=== PATIENT | female | born 1935 | race Caucasian/White ===

== ENCOUNTER 2016-10-09 22:07 | Observation (INO) | payer MEDICARE, MEDICAID ==
[~2016-10-09] VITALS: Ht 167.6 cm; Wt 50.0 kg
[~2016-10-09 22:07] MED LIST: AMLO2.5T33 PO; FERR160T22 PO; FURO20TA6 PO; GLIM4TAB31 PO; INSU10VI2; METF-186 PO; POTA10TA83 PO
--- OUTSIDE RECORDS SUMMARY | 2016-10-09 22:11 | XMS REPORT ---
Author Author Erin Marie Organization eClinicalWorks Address Unknown Phone Unavailable Care Team Providers Care Central Service Tech Name Role Phone Erin Marie CP Unavailable Allergies No Known Allergies Problems Problem Type Condition ICD-9 Code Onset Dates Condition Status Problem Diabetes 250.00 Active Problem Anemia 285.9 Active Problem HTN (hypertension) 401.9 Active Problem Renal insufficiency 593.9 Active Medications No Known Medications Results No Known Results Summary Purpose eClinicalWorks Submission
--- OUTSIDE RECORDS SUMMARY | 2016-10-09 22:11 | XMS REPORT ---
Author Author Erin Marie [facility] eClinicalWorks Address Unknown Phone Unavailable Care Team Providers Care Treasury Agent Name Role Phone Erin Marie Unavailable Allergies No Known Allergies Problems Problem Type Condition Code Onset Dates Condition Status Problem Anemia 285.9 Active Problem Renal insufficiency 593.9 Active Problem Diabetes 250.00 Active Medications No Known Medications Results No Known Results Summary Purpose eClinicalWorks Submission
--- OUTSIDE RECORDS SUMMARY | 2016-10-09 22:11 | XMS REPORT ---
Author Author Erin Marie Organization [employer] Address Unknown Phone Unavailable Care Team Providers Care Tile Sprayer Name Role Phone Erin Marie CP Unavailable Allergies No Known Allergies Problems Problem Type Condition Code Onset Dates Condition Status Problem Essential (primary) hypertension I10 Active Problem Pancytopenia D61.818 Active Problem Type 2 diabetes mellitus without complications E11.9 Active Problem CKD (chronic kidney disease) stage 3, GFR 30-59 ml/min N18.3 Active Medications Medication Code System Code Instructions Start Date End Date Status Dosage one touch Delica Lancets NDC 0 33 E11.9 Testing 4 times daily for IDDM E11.9 poorly controlled September 19, 2015 not defined Results No Known Results Summary Purpose eClinicalWorks Submission
--- OUTSIDE RECORDS SUMMARY | 2016-10-09 22:11 | XMS REPORT ---
Author Author Erin Marie Organization Formerly [facility] Spec Address [address] [place] [address] Care Team Providers Care Vamp Stitcher Name Role Phone Erin Marie Unavailable [phone] PROBLEMS Type Condition ICD9-CM Code [id number] Code Onset Dates Condition Status SNOMED Code Problem Type 2 diabetes mellitus without complications E11.9 Active 59228845 Problem Essential (primary) hypertension I10 Active 56270244 Problem Pancytopenia D61.818 Active 479159896 Problem CKD (chronic kidney disease) stage 3, GFR 30-59 ml/min N18.3 Active 728181030 ALLERGIES Unknown Allergies SOCIAL HISTORY No smoking Hx information available PLAN OF CARE VITAL SIGNS MEDICATIONS Unknown Medications RESULTS No Results PROCEDURES No Known procedures IMMUNIZATIONS No Known Immunizations
--- OUTSIDE RECORDS SUMMARY | 2016-10-09 22:11 | XMS REPORT ---
Author Author Erin Marie Organization eClinicalWorks Address Unknown Phone Unavailable Care Team Providers Care Traffic Routing Engineer Name Role Phone Erin Marie CP Unavailable Allergies No Known Allergies Problems Problem Type Condition Code Onset Dates Condition Status Problem Essential (primary) hypertension I10 Active Problem Pancytopenia D61.818 Active Problem Type 2 diabetes mellitus without complications E11.9 Active Problem Renal insufficiency 593.9 Active Problem HTN (hypertension) 401.9 Active Problem Anemia 285.9 Active Medications Medication Code System Code Instructions Start Date End Date Status Dosage One Touch Ultra Blue Test Strips NDC 0 strip testing 4 times daily for IDDM E11.9, poorly controlled May 23, 2015 not defined Results No Known Results Summary Purpose eClinicalWorks Submission
--- OUTSIDE RECORDS SUMMARY | 2016-10-09 22:11 | XMS REPORT ---
Author Author Erin Marie [facility] eClinicalWorks Address Unknown Phone Unavailable Care Team Providers Care Missile Tracking Technician Name Role Phone Erin Marie CP Unavailable Allergies No Known Allergies Problems Problem Type Condition Code Onset Dates Condition Status Problem Type 2 diabetes mellitus without complications E11.9 Active Problem Essential (primary) hypertension I10 Active Problem Diabetes 250.00 Active Problem Pancytopenia D61.818 Active Problem CKD (chronic kidney disease) stage 3, GFR 30-59 ml/min N18.3 Active Medications No Known Medications Results No Known Results Summary Purpose eClinicalWorks Submission
--- OUTSIDE RECORDS SUMMARY | 2016-10-09 22:11 | XMS REPORT ---
Author Erin Jiang [facility] eClinicalWorks Address Unknown Phone Unavailable Care Team Providers Care Evs Attendant Name Role Phone Erin Marie CP Unavailable Allergies, Adverse Reactions, Alerts Substance Reaction Event Type N.K.D.A. Info Not Available Non Drug Allergy Problems Problem Type Condition Code Onset Dates Condition Status Assessment Type 2 diabetes mellitus without complications E11.9 Active Problem Essential (primary) hypertension I10 Active Problem Pancytopenia D61.818 Active Problem Type 2 diabetes mellitus without complications E11.9 Active Assessment Pancytopenia D61.818 Active Assessment Essential (primary) hypertension I10 Active Problem CKD (chronic kidney disease) stage 3, GFR 30-59 ml/min N18.3 Active Assessment CKD (chronic kidney disease) stage 3, GFR 30-59 ml/min N18.3 Active Medications Medication Code System Code Instructions Start Date End Date Status Dosage one touch Delica Lancets NDC 0 33 E11.9 Testing 4 times daily for IDDM E11.9 poorly controlled September 19, 2015 not defined Humalog Mix 50/50 KwikPen NDC 0 100 units/ml September 16, 2015 5-6 units PM glimepiride NDC 87674 2 mg orally daily Apr 25, 2016 1 tab(s) BD Ultra Fine Mini Pen [place] NDC 0 31 ga, 5 mm as dir December 06, 2015 not defined Humalog KwikPen NDC 0 100 units/ml SQ AC before meals prn September 14, 2015 3 units One Touch Ultra Blue Test Strips NDC 0 strip testing 4 times daily for IDDM E11.9, poorly controlled September 13, 2015 not defined Procedures Procedure Coding System Code Date Glycated Hemoglobin Test CPT-4 24926 Apr 30, 2016 Automated Hemogram-CBC w/Diff CPT-4 07595 Apr 30, 2016 Comprehensive Metabolic Panel CPT-4 35970 Apr 30, 2016 Office/Outpatient Visit-Est CPT-4 43983 Apr 30, 2016 VENIPUNCT, ROUTINE* CPT-4 29862 Apr 30, 2016 Vital Signs Date/Time: Apr 30, 2016 Temperature 97.1 F Blood Pressure Diastolic 84 mm Hg Blood Pressure Systolic 160 mm Hg BMI 17.32 Index Height 66 in Weight 107.3 lbs Pulse 76 /min Results Name Result Date Reference Range Unit Abnormality Flag CMP - Comp. Metabolic Panel (14) ----ALBUMIN 3.9 [id number] 3.4-5.0 g/dL ----TOTAL PROTEIN 7.2 [id number] 6.4-8.2 g/dL ----CHLORIDE 97 [id number] 98-107 mmol/L L ----CARBON DIOXIDE 30 [id number] 21-32 mmol/L ----TOTAL BILIRUBIN 0.40 [id number] 0.10-1.00 mg/dL ----GLUCOSE 276 [id number] 74-108 mg/dL H ----AST (SGOT) 20 [id number] 15-37 U/L ----BUN 58 [id number] 7-18 mg/dL H ----ALT (SGPT) 18 [id number] 12-78 U/L ----CREATININE 2.38 [id number] 0.60-1.30 mg/dL H ----ALK. PHOSPHATASE 70 [id number] 50-136 mg/dL ----BUN/CREAT RATIO 24.4 [id number] 12.0-20.0 CALC H ----SODIUM 135 [id number] 136-145 mmol/L L ----CALCIUM 9.0 [id number] 8.5-10.1 mg/dL ----A/G RATIO 1.2 [id number] 1.1-2.5 CALC ----POTASSIUM 4.9 [id number] 3.5-5.1 mmol/L ----GLOBULIN 3.3 [id number] 1.5-4.5 g/dL Hemoglobin A1c ----HBA1C 8.5 [id number] 4.5-6.2 % H CBC With Differential/Platelet ----MCHC 33.8 [id number] 31.8-35.4 g/dL ----MCH 32.6 [id number] 27.0-31.2 PG H ----PLT 220 [id number] 142-424 x10^3/UL ----RDW 12.3 [id number] 11.6-14.8 % ----HCT 29.6 [id number] 37.7-47.9 % L ----MCV 96.4 [id number] 80.0-97.0 fL ----RBC 3.07 [id number] 4.04-5.48 x10^6/UL L ----HGB 10.0 [id number] 12.2-16.2 g/dL L ----WBC 3.4 [id number] 4.6-10.2 x10^3/UL L Summary Purpose eClinicalWorks Submission
--- OUTSIDE RECORDS SUMMARY | 2016-10-09 22:11 | XMS REPORT | Referral Summary ---
Author Author [facility] Organization [facility] Address Unknown Phone Unavailable Care Team Providers Care Precinct Captain Name Role Phone HeronjulitaVivian Primary Care Physician [phone] Encounter VC Date(s): 06/07/16 - 06/07/16 [facility] [address] [place], [place] [address] [[email or web address]] Discharge Diagnosis: Nondisplaced fracture of proximal phalanx of left little finger, initial encounter for closed fracture Discharge Diagnosis: Injury of left hand Discharge Disposition: 01-Home or Self Care Attending Physician: Sarah Batres Attending Physician: Provider, Immediate Care Admitting Physician: Provider, Immediate Care Vital Signs Most recent to 1 oldest [Reference Range]: Temperature Oral 36.6 degC [35.8-37.3 degC] (06/07/16 5:54 PM) Peripheral Pulse 84 bpm Rate [60-100 bpm] (06/07/16 5:54 PM) Blood Pressure 154/74 mmHg [90-140/60-90 mmHg] *HI* (06/07/16 5:54 PM) SpO2 99 % (06/07/16 5:54 PM) Problem List Condition Effective Dates Status Health Status Informant Acute Active pain(Confirmed) Anemia(Confirmed) 2007 Active patient Anemia(Confirmed) Resolved Anorexia(Confirmed) Resolved Anxiety Active disorder(Confirmed) Anxiety(Confirmed) Resolved At risk of pressure Active sore(Confirmed) Atherosclerosis(Conf Resolved irmed) Cataracts(Confirmed) Resolved CHF (congestive Resolved heart failure)(Confirmed) Diabetes(Confirmed) Active patient Gastroenteritis(Conf Resolved irmed) hx of Resolved hyponatremia(Confirm ed) Hypertension(Confirm Active patient ed) Hypoglycemia(Confirm Active ed) Hyponatremia(Confirm Resolved ed) Ingrown Resolved toenail(Confirmed) Kidney Active patient disease(Confirmed) Osteoporosis(Confirm Resolved ed) PVD (peripheral Resolved vascular disease)(Confirmed) Tissue perfusion Active alteration(Confirmed )1 Type 2 diabetes Resolved mellitus(Confirmed) 1Problem added automatically by system based on initiation of Tissue Perfusion Cerebral Plan of Care Allergies, Adverse Reactions, Alerts Substance Reaction Severity Status penicillin Adverse Reaction Mild Active promethazine Active Medications amLODIPine 5 mg oral tablet mg tabs, Oral, Daily, 0 Refill(s) Start Date: 06/07/16 Status: Ordered glimepiride 2 mg oral tablet mg tabs, Oral, Daily, 0 Refill(s) Start Date: 06/07/16 Status: Ordered HumaLOG SubCutaneous, 2-4 units in AM, 0 Refill(s) Start Date: 06/07/16 Status: Ordered HumaLOG Mix 50/50 SubCutaneous, qPM, 0 Refill(s) Start Date: 06/07/16 Status: Ordered Iron 100 Plus tabs, Oral, Daily, 0 Refill(s) Start Date: 06/07/16 Status: Ordered Results No data available for this section Immunizations Given and Recorded Vaccine Date Status Refusal Reason pneumococcal 23-polyvalent vaccine 02/18/02 Given Procedures Procedure Date Related Diagnosis Body Site Cholangiopancreatography Retrograde Endo1 12/15/13 Hospitalization - hypoglycemia, 2012 gastroenteritis, HTN Removal of gallstone 09/2007 Cataract extraction 2002 Esophagogastroduodenoscopy 2002 G-Tube Placement 2002 Hip replacement 2001 Hospitalized - hyponatremia 2001 RT HIP FX 2001 Cataract extraction 2000 PEG - Endoscopic removal of percutaneous gastrostomy 1auto-populated from documented surgical case Social History Social History Type Response Smoking Status Never smoker Assessment and Plan Extracted from: Title: Office Visit Note Author: Sarah Batres Date: 06/07/16 Assessment/Plan 1.Nondisplaced fracture of proximal phalanx of left little finger, initial encounter for closed fracture Discussed use of therapeutic techniques: PRICEMM therapy (protection, relative rest, ice, compression, elevation, medications, modalities) for symptomatic relief. Splint applied in office.Discussed proper OTC medication , including Tylenol, for symptomatic relief. Instructed patient if symptoms worsen or new symptoms arise to seek medical attention here or at the ER. Instructed patient to follow up with PCP in5-7 days. Patient voiced understanding and agreed with treatment plan. Patient dismissed in stable condition. Ordered: Office Visit Level 3 Est 16159
--- OUTSIDE RECORDS SUMMARY | 2016-10-09 22:11 | XMS REPORT ---
Author Author Erin Marie [facility] eClinicalWorks Address Unknown Phone Unavailable Care Team Providers Care Latex Dipper Name Role Phone Erin Marie CP Unavailable Allergies No Known Allergies Problems Problem Type Condition Code Onset Dates Condition Status Problem Diabetes 250.00 Active Problem Anemia 285.9 Active Problem HTN (hypertension) 401.9 Active Problem Renal insufficiency 593.9 Active Medications Medication Code System Code Instructions Start Date End Date Status Dosage One Touch Ultra Blue Test Strips NDC 0 testing 4 times daily for IDDM 250.01, poorly controlled not defined Results No Known Results Summary Purpose eClinicalWorks Submission
--- OUTSIDE RECORDS SUMMARY | 2016-10-09 22:11 | XMS REPORT ---
Author Author CynthiaChhayaErin Organization [facility] Spec Address [address] [place] [address] Care Team Providers Care Brush Holder Inspector Name Role Phone Erin Marie Unavailable [phone] PROBLEMS Type Condition ICD9-CM Code [id number] Code Onset Dates Condition Status SNOMED Code Assessment Pyuria N39.0 Aug, Active 8707826 Problem Type 2 diabetes mellitus without complications E11.9 Active 53862268 Problem Essential (primary) hypertension I10 Active 85178709 Assessment Type 2 diabetes mellitus without complications E11.9 Aug, Active 238215768 Assessment Dysuria R30.0 Aug, Active 71251357 Problem Pancytopenia D61.818 Active 922831480 Problem CKD (chronic kidney disease) stage 3, GFR 30-59 ml/min N18.3 Active 945353769 ALLERGIES Substance Reaction Event Type Date Status N.K.D.A. Unknown Non Drug Allergy Aug, Unknown SOCIAL HISTORY No smoking Hx information available PLAN OF CARE Activity Details Pending Test Hemoglobin A1c Pending Test Urinalysis Dip Only Pending Test Culture: Urine Pending Test CMP - Comp. Metabolic Panel (14) Pending Test Microalbumin:Creatinine Ratio, Random Urine Pending Test > UA MICROSCOPIC 3 Months,Reason: VITAL SIGNS Temperature 97.6 degrees Fahrenheit 2016-09-10 Weight 110.7 lbs 2016-09-10 Height 66 in 2016-09-10 BMI 17.87 kg/m2 2016-09-10 Oximetry 97 2016-09-10 Blood pressure systolic 140 mm Hg 2016-09-10 Blood pressure diastolic 80 mm Hg 2016-09-10 MEDICATIONS Medication Instructions Dosage Frequency Start Date End Date Duration Status Humalog Mix 50/50 KwikPen 100 units/ml 5-6 units PM Sep, Active one touch Delica Lancets 30 G, fine as directed Jun, Active One Touch Ultra Blue Test Strips strip May, 90 Active RESULTS No Results PROCEDURES Procedure Date Ordered Related Diagnosis Body Site Comprehensive Metabolic Panel September 10, 2016 Assay of Creatinine Urine September 10, 2016 Office/Outpatient Visit-Est September 10, 2016 VENIPUNCT, ROUTINE* September 10, 2016 Microalbumin, Quantitative September 10, 2016 Urine Culture/[place] Count September 10, 2016 Urinalysis, Auto, w/o Scope September 10, 2016 IMMUNIZATIONS No Known Immunizations
--- OUTSIDE RECORDS SUMMARY | 2016-10-09 22:11 | XMS REPORT ---
Author Author Erin Marie Organization eClinicalWorks Address Unknown Phone Unavailable Care Team Providers Care Sprayer Leather Name Role Phone Erin Marie CP Unavailable Allergies No Known Allergies Problems Problem Type Condition ICD-9 Code Onset Dates Condition Status Problem Anemia 285.9 Active Problem Renal insufficiency 593.9 Active Problem Diabetes 250.00 Active Medications No Known Medications Results No Known Results Summary Purpose eClinicalWorks Submission
--- OUTSIDE RECORDS SUMMARY | 2016-10-09 22:12 | XMS REPORT ---
Author Author Erin Marie Organization eClinicalWorks Address Unknown Phone Unavailable Care Team Providers Care Senior Manager Creative Services Name Role Phone Erin Marie CP Unavailable [...] Dosage one touch Delica Lancets NDC 0 Testing 4 times daily for IDDM E11.9 poorly controlled not defined Results No Known Results Summary Purpose eClinicalWorks Submission
--- OUTSIDE RECORDS SUMMARY | 2016-10-09 22:12 | XMS REPORT | Continuity of Care Document ---
Author Author [facility] Organization [facility] Address Unknown Phone Unavailable Allergies Active Description Code Type Severity Reaction Onset Reported/Identified Relationship to Patient Clinical Status Yes Penicillins Penicillins Drug Allergy Unknown N/A 10/13/2007 Yes promethazine promethazine Drug Allergy Unknown N/A 10/13/2007 Yes NO KNOW CONTRAST MEDIA ALLERGY NO KNOW CONTRAST MEDIA ALLERGY Drug Allergy Unknown N/A 2007 Yes No Known Food Allergies No Known Food Allergies Drug Allergy Unknown N/A 10/14/2007 Yes No Known Other Allergies No Known Other Allergies Drug Allergy Unknown N/A 10/14/2007 Yes PENICILLIN PENICILLIN Drug Allergy Unknown N/A 10/14/2007 Yes PHENERGAN PHENERGAN Drug Allergy Unknown CAUSING CONFUSION 10/14/2007 Yes PROMETHAZINE PROMETHAZINE Drug Allergy Unknown CAUSES CONFUSION 10/14/2007 Yes Penicillins Drug Allergy Mild Adverse Reaction 06/18/2012 Yes Phenergan Drug Allergy Moderate Adverse Reaction 06/18/2012 Yes promethazine promethazine Drug Allergy Moderate confusion 06/13/2016 Yes Penicillins Penicillins Drug Allergy Unknown unknown 06/13/2016 Medications Problems Date Dx Coded Attending Type Code Diagnosis Diagnosed By 06/19/2012 Ceferino Cardona DO Final 250.80 DM2/NOS W MANIF NEC NSU 06/19/2012 Ceferino Cardona DO Final 276.51 DEHYDRATION 06/19/2012 Ceferino Cardona DO Final 285.21 ANEMIA IN CKD 06/19/2012 Ceferino Cardona DO Final 403.90 HTN CKD NOS I-IV/NOS 06/19/2012 Ceferino Cardona DO Final 584.9 ACUTE KIDNEY FAILURE NOS 06/19/2012 Ceferino Cardona DO Final 585.9 CHRONIC KIDNEY DIS NOS Procedures Results Encounters ACCT No. Visit Date/Time Discharge Status Pt. Type Provider Facility Loc./Unit Complaint [id number] 06/17/2012 22:11:00 2012 16:30:00 DIS Inpatient Ceferino Cardona DO [facility] [address]
--- OUTSIDE RECORDS SUMMARY | 2016-10-09 22:12 | XMS REPORT ---
Author Author Erin Marie [facility] eClinicalWorks Address Unknown Phone Unavailable Care Team Providers Care Testing Director Name Role Phone Erin Marie CP Unavailable [...]
--- OUTSIDE RECORDS SUMMARY | 2016-10-09 22:12 | XMS REPORT ---
Author Erin Jiang [facility] eClinicalWorks Address Unknown Phone Unavailable Care Team Providers Care Psych Tech Name Role Phone Erin Marie CP Unavailable Allergies, Adverse Reactions, Alerts Substance Reaction Event Type N.K.D.A. Info Not Available Non Drug Allergy Problems Problem Type Condition ICD-9 Code Onset Dates Condition Status Assessment HTN (hypertension) 401.9 Active Problem Diabetes 250.00 Active Problem Anemia 285.9 Active Problem HTN (hypertension) 401.9 Active Assessment Anemia 285.9 Active Assessment Renal insufficiency 593.9 Active Problem Renal insufficiency 593.9 Active Assessment Diabetes 250.00 Active Medications Medication Code System Code Instructions Start Date End Date Status Dosage Humalog KwikPen NDC 0 100 units/ml SQ AC before meals prn 3 units Humalog Mix 50/50 KwikPen NDC 0 100 units/ml 5-6 units PM BD Ultra Fine Mini Pen [place] NDC 0 31 ga, 5 mm as dir not defined One Touch Ultra Blue Test Strips NDC 0 testing 4 times daily for IDDM 250.01, poorly controlled not defined one touch Delica Lancets NDC 0 250.00 test up to TID not defined Procedures Procedure Coding System Code Date Automated Hemogram-CBC w/Diff CPT-4 57085 October 25, 2014 Office/Outpatient Visit-Est CPT-4 90406 October 25, 2014 Basic Metabolic Panel CPT-4 68124 October 25, 2014 Vital Signs Date/Time: October 25, 2014 Temperature 97 F Blood Pressure Diastolic 80 mm Hg Blood Pressure Systolic 180 mm Hg BMI 18.19 Index Height 66 in Weight 112.7 lbs Pulse 80 /min Results No Known Results Summary Purpose eClinicalWorks Submission
--- OUTSIDE RECORDS SUMMARY | 2016-10-09 22:12 | XMS REPORT | Continuity of Care Document ---
Author Author Agapito Drew [facility] Address [address] [place] [address] Phone Care Team Providers Care Cutter Plastics Rolls Name Role Phone Emir Bautista PP Unavailable Payers Payer name Insurance type Covered libertarian ID Authorization(s) Unknown Problems Condition Effective Dates (start - stop) Clinical Status Ingrowing nail - *Chronic Peripheral vascular disease, unspecified - *Chronic Dementia - *Fair Control Chronic kidney disease, Stage IV (severe) - *Fair Control Diabetes Mellitus Type 2, Uncomplicated - *Fair Control Hypertension, Benign - *Controlled DMII WO CMP NT ST UNCNTR - IRON DEFIC ANEMIA NOS - ANXIETY STATE NOS - CHF NOS - PERIPH VASCULAR DIS NOS - INGROWING NAIL - OSTEOPOROSIS NOS - Diarrhea - Episodic Anemia - *Chronic Diabetes mellitus - *Chronic Chronic kidney disease, stage IV (severe) - *Chronic Hypertension, Unspecified - *Chronic Hypertension, Unspecified - *Poor control Anemia, Iron Deficiency - *Chronic Chronic kidney disease, Stage IV (severe) - *Chronic Dementia - *Stable Diabetes Mellitus Type 2, Uncomplicated - *Controlled Hypertension, Benign - *Controlled Anemia, Iron Deficiency - *Chronic Renal insufficiency - *Chronic Ingrowing nail - *Chronic Peripheral vascular disease, unspecified - *Chronic Dermatophytosis of nail - *Chronic Peripheral vascular disease, unspecified - *Chronic Ingrowing nail - *Chronic Peripheral vascular disease, unspecified - *Chronic Diabetes Mellitus Type 2, Uncomplicated - *Poor control Dementia - *Fair Control Hypertension, Benign - *Fair Control Anemia - *Chronic Diabetes Mellitus, Juvenile, Controlled - *Fair Control Dermatophytosis of nail - *Chronic Pain in limb - *Chronic Family History Family Member Diagnosis Age At Onset Status Mother () bowel obstruction 87 Yes Father () Cancer - stomach 68 Yes Brother (Unknown) Diabetes Yes Sister (Unknown) Arthritis Yes Social History Social History Element Description Quantity Unknown Allergies, Adverse Reactions, Alerts Substance Reaction Severity Status PENICILLINS Unknown PROMETHAZINE Unknown Medications Medication Instructions Dosage Effective Dates (start - stop) Status Pen Needle 32 x " Injecting TID Dx: 250.02 - Active Slow Fe 142 mg (45 mg iron) tablet,extended release one daily - Active Norvasc 5 mg tablet take 1 tablet (5MG) by oral route every day 5 MG - Active One Touch Ultra Test strips TESTING FASTING AND 2 HOURS AFTER MEALS- 3 TIMES A DAY. DX:250.02 - Active One Touch Delica Lancets 33 gauge Test blood sugars TID DX:250.00 2012 - Active 12-13u - Active Immunizations Vaccine Date Status Comments Unknown Results Test Name Date and Time Measure Units Reference Range Abnormal Flag Comments Unknown Vital Signs Date / Time: Height Weight Pulse Rate Blood Pressure Temperature Unknown Procedures Procedure Date Unknown Encounters Encounter Location Date Patient Visit [facility] W21 Pod Patient Visit [facility] Patient Visit [facility] Patient Visit [facility] Patient Visit [facility] Patient Visit Conversion Patient Visit [facility] Patient Visit [facility] Patient Visit [facility] Patient Visit [facility] W21 Pod Patient Visit [facility] W21 Pod Patient Visit [facility] W21 Pod Patient Visit [facility] Patient Visit [facility] W21 Pod Advance Directives Directive Effective Date Unknown
--- OUTSIDE RECORDS SUMMARY | 2016-10-09 22:12 | XMS REPORT ---
Author Author Erin Marie [facility] eClinicalWorks Address Unknown Phone Unavailable Care Team Providers Care Ophthalmic Pathologist Name Role Phone Erin Marie CP Unavailable Allergies No Known Allergies Problems Problem Type Condition Code Onset Dates Condition Status Problem Essential (primary) hypertension I10 Active Problem Pancytopenia D61.818 Active Problem Type 2 diabetes mellitus without complications E11.9 Active Problem Renal insufficiency 593.9 Active Problem HTN (hypertension) 401.9 Active Problem Anemia 285.9 Active Medications No Known Medications Results No Known Results Summary Purpose eClinicalWorks Submission
--- OUTSIDE RECORDS SUMMARY | 2016-10-09 22:12 | XMS REPORT ---
Author Author Erin Marie [facility] eClinicalWorks Address Unknown Phone Unavailable Care Team Providers Care Crate Opener Name Role Phone Erin Marie Unavailable Allergies [...]
--- OUTSIDE RECORDS SUMMARY | 2016-10-09 22:12 | XMS REPORT ---
Author Author Erin Marie [facility] eClinicalWorks Address Unknown Phone Unavailable Care Team Providers Care Batching Operator Name Role Phone Erin Marie Unavailable Allergies No Known Allergies Problems Problem Type Condition Code Onset Dates Condition Status Problem Anemia 285.9 Active Problem Renal insufficiency 593.9 Active Problem Diabetes 250.00 Active Medications Medication Code System Code Instructions Start Date End Date Status Dosage one touch Delica Lancets NDC 0 250.00 test up to TID not defined Results No Known Results Summary Purpose eClinicalWorks Submission
--- OUTSIDE RECORDS SUMMARY | 2016-10-09 22:12 | XMS REPORT ---
Author Author Erin Marie Organization eClinicalWorks Address Unknown Phone Unavailable Care Team Providers Care Bicycle Racer Name Role Phone Erin Marie CP Unavailable Allergies No Known Allergies Problems Problem Type Condition Code Onset Dates Condition Status Problem Essential (primary) hypertension I10 Active Problem Pancytopenia D61.818 Active Problem Type 2 diabetes mellitus without complications E11.9 Active Problem Renal insufficiency 593.9 Active Assessment Type 2 diabetes mellitus without complications E11.9 Active Problem HTN (hypertension) 401.9 Active Problem Anemia 285.9 Active Medications Medication Code System Code Instructions Start Date End Date Status Dosage One Touch Ultra Blue Test Strips NDC 0 strip testing 4 times daily for IDDM 250.01, poorly controlled May 23, 2015 not defined one touch Delica Lancets NDC 0 Testing 4 times daily for IDDM 250.01 poorly controlled [place] 28245 20 mg orally once a day December 27, 2014 1 tab(s) glimepiride NDC 48847 2 mg orally daily May 20, 2015 1 tab(s) Humalog KwikPen NDC 0 100 units/ml SQ AC before meals prn 3 units BD Ultra Fine Mini Pen [place] NDC 0 31 ga, 5 mm as dir not defined Levemir FlexPen NDC 49310 100 units/mL subcutaneously q HS December 27, 2014 10 Results No Known Results Summary Purpose eClinicalWorks Submission
--- OUTSIDE RECORDS SUMMARY | 2016-10-09 22:12 | XMS REPORT ---
Author Erin Jiang Organization eClinicalWorks Address Unknown Phone Unavailable Care Team Providers Care Maple Products Maker Name Role Phone Erin Marie CP Unavailable Allergies, Adverse Reactions, Alerts Substance Reaction Event Type N.K.D.A. Info Not Available Non Drug Allergy Problems Problem Type Condition ICD-9 Code Onset Dates Condition Status Assessment HTN (hypertension) 401.9 Active Problem Diabetes 250.00 Active Problem Anemia 285.9 Active Problem HTN (hypertension) 401.9 Active Assessment Renal insufficiency 593.9 Active Assessment Anemia 285.9 Active Problem Renal insufficiency 593.9 Active Assessment Diabetes 250.00 Active Medications Medication Code System Code Instructions Start Date End Date Status Dosage Humalog KwikPen NDC 0 100 units/ml SQ AC before meals prn 3 units one touch Delica Lancets NDC 0 Testing 4 times daily for IDDM 250.01 poorly controlled not defined BD Ultra Fine Mini Pen [place] NDC 0 31 ga, 5 mm as dir not defined Levemir FlexPen NDC 39992 100 units/mL subcutaneously q HS December 27, 2014 10 lisinopril NDC 92563 20 mg orally once a day December 27, 2014 1 tab(s) One Touch Ultra Blue Test Strips NDC 0 testing 4 times daily for IDDM 250.01, poorly controlled not defined Procedures Procedure Coding System Code Date Automated Hemogram-CBC w/Diff CPT-4 64541 December 27, 2014 Comprehensive Metabolic Panel CPT-4 26048 December 27, 2014 Glycated Hemoglobin Test CPT-4 45185 December 27, 2014 Office/Outpatient Visit-Est CPT-4 30779 December 27, 2014 Vital Signs Date/Time: December 27, 2014 Temperature 98.3 F Blood Pressure Diastolic 70 mm Hg Blood Pressure Systolic 170 mm Hg BMI 18.75 Index Height 66 in Weight 116.2 lbs Results Name Result Date Reference Range Unit Abnormality Flag Hemoglobin A1c Summary Purpose eClinicalWorks Submission
--- OUTSIDE RECORDS SUMMARY | 2016-10-09 22:12 | XMS REPORT ---
Author Author Erin Marie Organization eClinicalWorks Address Unknown Phone Unavailable Care Team Providers Care Supply Coordinator Name Role Phone Erin Marie Unavailable Allergies [...] for IDDM 250.01 poorly controlled not defined Results No Known Results Summary Purpose eClinicalWorks Submission
--- OUTSIDE RECORDS SUMMARY | 2016-10-09 22:12 | XMS REPORT ---
Author Erin Jiang [facility] eClinicalWorks Address Unknown Phone Unavailable Care Team Providers Care Retail Merchandising Specialist Name Role Phone Erin Marie CP Unavailable Allergies, Adverse Reactions, Alerts Substance Reaction Event Type N.K.D.A. Info Not Available Non Drug Allergy Problems Problem Type Condition ICD-9 Code Onset Dates Condition Status Problem Anemia 285.9 Active Problem Renal insufficiency 593.9 Active Problem Diabetes 250.00 Active Assessment Renal insufficiency 593.9 Active Assessment Diabetes 250.00 Active Assessment Anemia 285.9 Active Medications Medication Code System Code Instructions Start Date End Date Status Dosage one touch Delica Lancets NDC 0 test up to TID not defined Humalog KwikPen NDC 0 100 units/ml SQ AC before meals prn 3 units Humalog Mix 50/50 KwikPen NDC 0 100 units/ml 5-6 units PM glimepiride NDC 85630 4 mg orally BID 1 tab(s) BD Ultra Fine Mini Pen [place] NDC 0 31 ga, 5 mm as dir not defined One Touch Ultra Blue Test Strips NDC 0 testing 4 times daily for IDDM 250.01, poorly controlled not defined Procedures Procedure Coding System Code Date Comprehensive Metabolic Panel CPT-4 45091 September 08, 2014 Automated Hemogram-CBC w/Diff CPT-4 42360 September 08, 2014 Glycated Hemoglobin Test CPT-4 46109 September 08, 2014 Microalbumin, Quantitative CPT-4 47082 September 08, 2014 Assay of Creatinine Urine CPT-4 71275 September 08, 2014 Office/Outpatient Visit-New CPT-4 44264 September 08, 2014 Vital Signs Date/Time: September 08, 2014 Temperature 97.5 F Blood Pressure Diastolic 80 mm Hg Blood Pressure Systolic 160 mm Hg BMI 17.62 Index Height 66 in Weight 109.2 lbs Pulse 72 /min Results No Known Results Summary Purpose eClinicalWorks Submission
--- OUTSIDE RECORDS SUMMARY | 2016-10-09 22:12 | XMS REPORT ---
Author Author Erin Marie Organization eClinicalWorks Address Unknown Phone Unavailable Care Team Providers Care Tailercpa Name Role Phone Erin Marie CP Unavailable Allergies No Known Allergies Problems Problem Type Condition Code Onset Dates Condition Status Problem Essential (primary) hypertension I10 Active Problem Pancytopenia D61.818 Active Problem Type 2 diabetes mellitus without complications E11.9 Active Problem Anemia 285.9 Active Problem Renal insufficiency 593.9 Active Problem HTN (hypertension) 401.9 Active Problem Diabetes 250.00 Active Medications Medication Code System Code Instructions Start Date End Date Status Dosage Humalog KwikPen NDC 0 100 units/ml SQ AC before meals prn 3 units Results No Known Results Summary Purpose eClinicalWorks Submission
--- OUTSIDE RECORDS SUMMARY | 2016-10-09 22:12 | XMS REPORT ---
Author Erin Jiang [facility] eClinicalWorks Address Unknown Phone Unavailable Care Team Providers Care Pattern Carrier Name Role Phone Erin Marie Unavailable Allergies, Adverse Reactions, Alerts Substance Reaction Event Type N.K.D.A. Info Not Available Non Drug Allergy Problems Problem Type Condition Code Onset Dates Condition Status Assessment Type 2 diabetes mellitus without complications E11.9 Active Problem Essential (primary) hypertension I10 Active Problem Pancytopenia D61.818 Active Problem Type 2 diabetes mellitus without complications E11.9 Active Assessment Pancytopenia D61.818 Active Assessment CKD (chronic kidney disease) stage 3, GFR 30-59 ml/min N18.3 Active Problem CKD (chronic kidney disease) stage 3, GFR 30-59 ml/min N18.3 Active Assessment Essential (primary) hypertension I10 Active Medications Medication Code System Code Instructions Start Date End Date Status Dosage BD Ultra Fine Mini Pen [place] NDC 0 31 ga, 5 mm as dir December 06, 2015 not defined amlodipine NDC 96456 5 mg orally once a day Jul 20, 2015 1 tab(s) Humalog Mix 50/50 KwikPen NDC 0 100 units/ml September 16, 2015 5-6 units PM One Touch Ultra Blue Test Strips NDC 0 strip testing 4 times daily for IDDM E11.9, poorly controlled September 13, 2015 not defined one touch Delica Lancets NDC 0 33 Testing 4 times daily for IDDM E11.9 poorly controlled September 19, 2015 not defined lisinopril NDC 35343 20 mg orally once a day December 27, 2014 1 tab(s) Levemir FlexPen NDC 81976 100 units/mL subcutaneously q HS December 27, 2014 10 Humalog KwikPen NDC 0 100 units/ml SQ AC before meals prn September 14, 2015 3 units glimepiride NDC 77263 2 mg orally daily October 24, 2015 1 tab(s) Procedures Procedure Coding System Code Date Comprehensive Metabolic Panel CPT-4 89728 December 26, 2015 Glycated Hemoglobin Test CPT-4 92533 December 26, 2015 Automated Hemogram-CBC w/Diff CPT-4 20685 December 26, 2015 Office/Outpatient Visit-Est CPT-4 26283 December 26, 2015 VENIPUNCT, ROUTINE* CPT-4 68456 December 26, 2015 Vital Signs Date/Time: December 26, 2015 Temperature 97.6 F Blood Pressure Diastolic 80 mm Hg Blood Pressure Systolic 170 mm Hg BMI 17.75 Index Height 66 in Weight 110 lbs Pulse 82 /min Results Name Result Date Reference Range Unit Abnormality Flag CMP - Comp. Metabolic Panel (14) ----ALBUMIN 3.8 [id number] 3.4-5.0 g/dL ----TOTAL PROTEIN 7.1 [id number] 6.4-8.2 g/dL ----CHLORIDE 98 [id number] 98-107 mmol/L ----CARBON DIOXIDE 29 67865102 21-32 mmol/L ----TOTAL BILIRUBIN 0.30 [id number] 0.10-1.00 mg/dL ----GLUCOSE 324 [id number] 74-108 mg/dL H ----AST (SGOT) 20 [id number] 15-37 U/L ----BUN 59 [id number] 7-18 mg/dL H ----ALT (SGPT) 20 [id number] 12-78 U/L ----CREATININE 2.41 [id number] 0.60-1.30 mg/dL H ----ALK. PHOSPHATASE 94 [id number] 50-136 mg/dL ----BUN/CREAT RATIO 24.5 [id number] 12.0-20.0 CALC H ----SODIUM 135 [id number] 136-145 mmol/L L ----CALCIUM 9.1 69641762 8.5-10.1 mg/dL ----A/G RATIO 1.2 [id number] 1.1-2.5 CALC ----POTASSIUM 5.1 63998598 3.5-5.1 mmol/L ----GLOBULIN 3.3 93246467 1.5-4.5 g/dL Hemoglobin A1c ----HBA1C 9.2 [id number] 4.5-6.2 % H CBC With Differential/Platelet ----MCHC 33.0 [id number] 31.8-35.4 g/dL ----MCH 31.7 [id number] 27.0-31.2 PG H ----PLT 203 [id number] 142-424 x10^3/UL ----RDW 12.5 [id number] 11.6-14.8 % ----HCT 29.7 77517109 37.7-47.9 % L ----MCV 96.1 [id number] 80.0-97.0 fL ----RBC 3.09 [id number] 4.04-5.48 x10^6/UL L ----HGB 9.8 [id number] 12.2-16.2 g/dL L ----WBC 4.3 [id number] 4.6-10.2 x10^3/UL L Summary Purpose eClinicalWorks Submission
--- OUTSIDE RECORDS SUMMARY | 2016-10-09 22:12 | XMS REPORT ---
Author Author Erin Marie [facility] eClinicalWorks Address Unknown Phone Unavailable Care Team Providers Care Perioperative Assistant Name Role Phone Erin Marie CP Unavailable Allergies No Known Allergies Problems Problem Type Condition Code Onset Dates Condition Status Problem Essential (primary) hypertension I10 Active Problem Pancytopenia D61.818 Active Problem Type 2 diabetes mellitus without complications E11.9 Active Problem Anemia 285.9 Active Problem Renal insufficiency 593.9 Active Problem HTN (hypertension) 401.9 Active Problem Diabetes 250.00 Active Medications No Known Medications Results No Known Results Summary Purpose eClinicalWorks Submission
--- OUTSIDE RECORDS SUMMARY | 2016-10-09 22:12 | XMS REPORT ---
Author Author Erin Marie Organization eClinicalWorks Address Unknown Phone Unavailable Care Team Providers Care Health Education Teacher Name Role Phone Erin Marie CP Unavailable Allergies No Known Allergies Problems Problem Type Condition ICD-9 Code Onset Dates Condition Status Problem Diabetes 250.00 Active Problem Anemia 285.9 Active Problem HTN (hypertension) 401.9 Active Problem Renal insufficiency 593.9 Active Medications No Known Medications Results No Known Results Summary Purpose eClinicalWorks Submission
--- OUTSIDE RECORDS SUMMARY | 2016-10-09 22:12 | XMS REPORT | Continuity of Care Document ---
Author Author Emir Bautista MD Organization Ambulatory Address [address] [place] [address] Phone Care Team Providers Care Wire Rope Sling Maker Name Role Phone Emir Bautista PP Unavailable Payers Payer name Insurance type Covered republican ID Authorization(s) Unknown Problems Condition Effective Dates (start - stop) Clinical Status Dementia - *Stable Chronic kidney disease, Stage IV (severe) - *Chronic Anemia, Iron Deficiency - *Chronic Diabetes Mellitus Type 2, Uncomplicated - *Chronic Hypertension, Benign - *Controlled Dementia - *Fair Control Chronic kidney disease, Stage IV (severe) - *Fair Control Diabetes Mellitus Type 2, Uncomplicated - *Fair Control Hypertension, Benign - *Controlled DMII WO CMP NT ST UNCNTR - IRON DEFIC ANEMIA NOS - ANXIETY STATE NOS - CHF NOS - PERIPH VASCULAR DIS NOS - INGROWING NAIL - OSTEOPOROSIS NOS - Ingrowing nail - *Chronic Peripheral vascular disease, unspecified - *Chronic Diarrhea - Episodic Anemia - *Chronic Diabetes [...] Dosage Effective Dates (start - stop) Status Humalog Mix 50-50 100 unit/mL subcutaneous suspension 7 UNITS - Active Pen Needle 32 x 5/32" Injecting TID Dx: 250.02 - Active Slow Fe 142 mg (45 mg iron) tablet,extended release one daily - Active One Touch Delica Lancets 33 gauge Test blood sugars TID DX:250.00 2012 - Active Norvasc 5 mg tablet take 1 tablet (5MG) by oral route every day 5 MG - Active One Touch Ultra Test strips TESTING FASTING AND 2 HOURS AFTER MEALS- 3 TIMES A DAY. DX:250.02 - Active Immunizations Vaccine Date Status Comments Unknown Results Test Name Date and Time Measure Units Reference Range Abnormal Flag Comments Unknown Vital Signs Date / Time: Height Weight Pulse Rate Blood Pressure Temperature /14:32:00 66.34 in 108.00 lbs 130/80 mm[Hg] 97.4 F Procedures Procedure Date Unknown Encounters Encounter Location Date Patient Visit [facility] Patient Visit [facility] Patient Visit [facility] Patient Visit [facility] Patient Visit [facility] Patient Visit Conversion Patient Visit [facility] Patient Visit [facility] Patient [facility] Patient [facility] Patient Visit [facility] Patient Visit [facility] Patient Visit [facility] Patient Visit [facility] Patient Visit [facility] Pod Advance Directives Directive Effective Date Unknown
--- OUTSIDE RECORDS SUMMARY | 2016-10-09 22:12 | XMS REPORT ---
Author Author Erin Marie [facility] eClinicalWorks Address Unknown Phone Unavailable Care Team Providers Care Auxiliary Equipment Tender Name Role Phone Erin Marie CP Unavailable Allergies No Known Allergies Problems Problem Type Condition Code Onset Dates Condition Status Problem Anemia 285.9 Active Problem Renal insufficiency 593.9 Active Problem Diabetes 250.00 Active Medications No Known Medications Results No Known Results Summary Purpose eClinicalWorks Submission
--- OUTSIDE RECORDS SUMMARY | 2016-10-09 22:12 | XMS REPORT ---
Author Author Erin Marie [facility] eClinicalWorks Address Unknown Phone Unavailable Care Team Providers Care Junior Systems Engineer Name Role Phone Erin Marie CP [...] 0 test up to TID [place] NDC 80804 20 mg orally once a day September 23, 2014 1 tab(s) BD Ultra Fine Mini Pen [place] NDC 0 31 ga, 5 mm as dir not defined One Touch Ultra Blue Test Strips NDC 0 testing 4 times daily for IDDM 250.01, poorly controlled not defined Humalog KwikPen NDC 0 100 units/ml SQ AC before meals prn 3 units Humalog Mix 50/50 KwikPen NDC 0 100 units/ml 5-6 units PM Procedures Procedure Coding System Code Date Office/Outpatient Visit-Est CPT-4 38582 September 23, 2014 Vital Signs Date/Time: September 23, 2014 Temperature 98.2 F Blood Pressure Diastolic 80 mm Hg Blood Pressure Systolic 142 mm Hg BMI 17.80 Index Height 66 in Weight 110.3 lbs Pulse 78 /min Results No Known Results Summary Purpose eClinicalWorks Submission
--- OUTSIDE RECORDS SUMMARY | 2016-10-09 22:12 | XMS REPORT ---
Author Author Erin Marie Organization [facility] Address [address] [place] [address] Care Team Providers Care Mortgage Consultant Name Role Phone Erin Marie Unavailable [phone] PROBLEMS Type Condition ICD9-CM Code [id number] Code Onset Dates Condition Status SNOMED Code Problem Type 2 diabetes mellitus without complications E11.9 Active 80134529 Problem Essential (primary) hypertension I10 Active 10840792 Problem Pancytopenia D61.818 Active 284833575 Problem CKD (chronic kidney disease) stage 3, GFR 30-59 ml/min N18.3 Active [id number] ALLERGIES Unknown Allergies SOCIAL HISTORY No smoking Hx information available PLAN OF CARE VITAL SIGNS MEDICATIONS Medication Instructions Dosage Frequency Start Date End Date Duration Status One Touch Ultra Blue Test Strips strip May, 90 Active RESULTS No Results PROCEDURES No Known procedures IMMUNIZATIONS No Known Immunizations
--- OUTSIDE RECORDS SUMMARY | 2016-10-09 22:12 | XMS REPORT ---
Author Author Erin Marie [facility] eClinicalWorks Address Unknown Phone Unavailable Care Team Providers Care Milling Planer Operator Name Role Phone Erin Marie CP Unavailable [...]
--- OUTSIDE RECORDS SUMMARY | 2016-10-09 22:12 | XMS REPORT ---
Author Erin Jiang [facility] eClinicalWorks Address Unknown Phone Unavailable Care Team Providers Care Thermometer Tester Name Role Phone Erin Marie CP Unavailable Allergies, Adverse Reactions, Alerts Substance Reaction Event Type N.K.D.A. Info Not Available Non Drug Allergy Problems Problem Type Condition Code Onset Dates Condition Status Assessment Pancytopenia D61.818 Active Assessment Type 2 diabetes mellitus without complications E11.9 Active Assessment Essential (primary) hypertension I10 Active Problem Essential (primary) hypertension I10 Active Problem Pancytopenia D61.818 Active Problem Type 2 diabetes mellitus without complications E11.9 Active Problem Anemia 285.9 Active Problem Renal insufficiency 593.9 Active Problem HTN (hypertension) 401.9 Active Problem Diabetes 250.00 Active Medications Medication Code System Code Instructions Start Date End Date Status Dosage Levemir FlexPen NDC 20272 100 units/mL subcutaneously q HS December 27, 2014 10 glimepiride NDC 98354 2 mg orally daily 1 tab(s) One Touch Ultra Blue Test Strips NDC 0 testing 4 times daily for IDDM 250.01, poorly controlled not defined lisinopril NDC 80939 20 mg orally once a day December 27, 2014 1 tab(s) one touch Delica Lancets NDC 0 Testing 4 times daily for IDDM 250.01 poorly controlled not defined Humalog KwikPen NDC 0 100 units/ml SQ AC before meals prn 3 units BD Ultra Fine Mini Pen [place] NDC 0 31 ga, 5 mm as dir not defined Procedures Procedure Coding System Code Date Comprehensive Metabolic Panel CPT-4 91158 Apr 27, 2015 Automated Hemogram-CBC w/Diff CPT-4 37245 Apr 27, 2015 Glycated Hemoglobin Test CPT-4 02150 Apr 27, 2015 Office/Outpatient Visit-Est CPT-4 86093 Apr 27, 2015 VENIPUNCT, ROUTINE* CPT-4 90097 Apr 27, 2015 Vital Signs Date/Time: Apr 27, 2015 Temperature 97.0 F Blood Pressure Diastolic 90 mm Hg Blood Pressure Systolic 180 mm Hg BMI 18.24 Index Height 66 in Weight 113.0 lbs Pulse 96 /min Results No Known Results Summary Purpose eClinicalWorks Submission
--- OUTSIDE RECORDS SUMMARY | 2016-10-09 22:25 | XMS REPORT | Continuity of Care Document ---
Author Author [facility] Organization [facility] Address Unknown Phone Unavailable Allergies Active [...] Status Pt. Type Provider Facility Loc./Unit Complaint [id number] 06/17/2012 22:11:00 2012 16:30:00 DIS Inpatient Ceferino Cardona DO [address]
[2016-10-09] MEDS ORDERED: MORPHINE SULFATE 2 MG SYRINGE IV ONE (22:30)
[2016-10-09] MEDS ORDERED: AMLO5TAB2 PO (22:35)
[2016-10-09] MEDS ORDERED: INSU100I13 SQ (22:35)
[2016-10-09] MEDS ORDERED: INSU100I14 SQ (22:35)
[2016-10-09] MEDS ORDERED: HYDR-3989 PO (22:35)
[2016-10-09] MEDS ORDERED: GLIM2TAB3 PO (22:35)
--- NOTE | 2016-10-09 22:35 | ERPDOC ---
Departure Disposition Decision Date: Oct 09, 2016 Disposition Decision Time: 23:24 (UZMA DONALD APRN) Disposition: 02 TO OBS [facility] [place] Impression Impression (UZMA DONALD APRN) Impression: Primary Impression: Pelvic fracture Encounter type: initial encounter Pelvic bone location: unspecified part of pelvis Fracture type: closed Fracture alignment: nondisplaced Qualified Codes: S32.9XXA - Fracture of unspecified parts of lumbosacral spine and pelvis , initial encounter for closed fracture Additional Impressions: Anemia Anemia type: iron deficiency Iron deficiency anemia type: unspecified iron deficiency Qualified Codes: D50.9 - Iron deficiency anemia, unspecified Renal failure Severity: Moderate (UZMA DONALD APRN) Condition: Stable Seen By: Mid-level only (UZMA DONALD APRN) Referrals: CASIMIRO FRASER MD (Family) Problems/Meds/Labs Reviewed?: Yes Medications reviewed and manag: Yes (UZMA DONALD APRN) Follow up care ordered?: Yes Mental Status: Alert (UZMA DONALD APRN) HPI - General Medical General Chief Complaint: General Stated Complaint: BODY ACHES Time Seen by Provider: 22:19 Source: patient, family (daughter) Exam Limitations: no limitations (UZMA DONALD APRN) Time Seen by Provider: 22:19 (ELISA GANNON DO) HPI - General Medical Initial Comments She fell at home on 09/27/16. Seemed to be doing ok but pain had gotten worse. She lives with her daughter so she took her to [facility] for evaluation. They did find a pelvic fracture at that ER visit on 09/29/16. Was sent home with Rx for Natalia and Dulcolax. Her daughter was concerned about potential for constipation and so had not been giving much of the Natalia. Had been giving her 200gm of Ibuprofen as needed. She has declined over the last several days and is having quite a bit of trouble getting up out of the chair and bed and getting around the house. Her daughter has been looking into getting her into a nursing home facility but would like to see if we can admit her here tonight until she can arrange this. Occurred At: home Onset: Gradual Duration: other (Over the last week) Severity: moderate Associated Symptoms: DENIES: chest pain, cough, diaphoresis, fever/chills, headaches, loss of appetite, malaise, nausea/vomiting, rash, seizure, shortness of breath, syncope, weakness Hx of Similar Symptoms: No (NOLD,UZMA N [employer]) Allergies: Coded Allergies: Penicillins (Verified Allergy, Unknown, 07/16/11) promethazine (Verified Adverse Reaction, Severe, MENTAL STATUS CHANGE, 15/06) Past History Past Medical History Metabolic: diabetes, hypercholesterolemia, hypertension Female: renal insufficiency Hematologic: anemia (NOLD,UZMA N [employer]) Surgical History Joint: other (Pelvic fracture) (NOLD,UZMA N [employer]) Family History Family History: Negative (NOLD,UZMA N [employer]) Social History Smoking Status: Never smoker Substance Use Type: does not use Alcohol Intake: none (NOLD,UZMA N [employer]) Review of Systems Constitutional Constitutional: fatigue, weakness, DENIES: chills, dizziness, fever (NOLD, UZMA N [employer]) Eyes Vision: DENIES: blurring, double vision (NOLD,UZMA N [employer]) ENMT Ears: DENIES: drainage, pain Sinuses: DENIES: congestion, rhinorrhea (NOLD,UZMA N [employer]) Cardiovascular Cardiac: DENIES: chest pain, orthopnea Rhythm/Rate: DENIES: irregular beat, palpitations (NOLD,UZMA N [employer]) Pulmonary Respiratory: DENIES: cough, dyspnea, sputum, tachypnea (NOLD,UZMA N [employer]) GI Upper Abdomen: DENIES: nausea, pain, vomiting Lower Abdomen: DENIES: constipation, diarrhea, pain (NOLD,UZMA N [employer]) Musculoskeletal General: pain (in pelvis) (NOLD,UZMA N [employer]) Integumentary Skin: DENIES: rash (NOLD,UZMA N [employer]) Neurological General: DENIES: headache, numbness, tingling, weakness (NOLD,UZMA N [employer]) Physical Exam General General Nourishment: well nourished, well developed, appears stated age, no acute distress, adult General Body Habitus: well groomed (NOLD,UZMA N [employer]) Vitals and Pain First Documented Vital Signs Date Time Temp Pulse Resp B/P Pulse Ox O2 Delivery O2 Flow Rate FiO2 4/25/17 22:10 98.4 79 18 203/87 96 Room Air ( ) Vitals and Pain Weight: Kilograms: 50.800 Height (feet): 5 Height (inches): 6.00 Triage Pain Scale: (UZMA DONALD APRN) RN VS reviewed by Provider: Yes (UZMA DONALD APRN) Normal Exams: Neck: Full range of motion, without adenopathy, JVD, bruits or thyromegaly Chest/Resp: Clear all tiwari, with good airflow, and symmetry bilaterally CV: Regular rate and rhythm, without murmur or gallop, Pulses 2+ all extremities, capillary refill, <2 seconds all ext., no pedal edema noted Abdomen: Bowel sounds positive, soft, non-tender, non-distended, no hepatosplenomegaly, masses or bruits noted Lymphatic: No lymphadenopathy, or lymphedema noted Integumentary: No rashes, hives, or bruising noted Neurologic: Patient is alert, and oriented Psychiatric: Patient exhibits, appropriate attention, emotion and affect (UZMA DONALD APRN) Differential Diagnoses Considering: Hypo/Hyperglycemia, Hypo/Hyperkalemia, Hypo/Hypernatremia, UTI, Other (pain due to pelvic fracture) (UZMA DONALD APRN) Progress Results/Orders Orders Procedure Category Date Status Time Iv Lock (Ed Only) EDM 10/09/16 Transmitted 22:30 Cbc W/Auto LAB 10/09/16 Complete Diff-Reflex Manual Cmp - Comprehensive LAB 10/09/16 Complete Metabolic Ua, Dip Wreflex LAB 10/09/16 Logged [employer] Att[employer] 22:30 Morphine Sulfate PHA 10/09/16 Complete (Morphine) 22:30 Normal Saline (Normal PHA 10/09/16 In Process Saline Iv) 23:15 ( DO) Lab Results Laboratory Tests Test 10/09/16 22:49 White Blood Count 5.3T/MM3 Red Blood Count 2.55M/MM3 Hemoglobin 7.9GM/DL Hematocrit 25.8% Mean Corpuscular Volume 101.2UM3 Mean Corpuscular Hemoglobin 31.0UUG Mean Corpuscular Hemoglobin Concent 30.6GM/DL RDW Standard Deviation 44.3FL Platelet Count 272T/MM3 Mean Platelet Volume 9.8UM3 Immature Granulocyte % (Auto) 0.0% Neutrophils (%) (Auto) 73.4% Lymphocytes (%) (Auto) 12.9% Monocytes (%) (Auto) 9.9% Eosinophils (%) (Auto) 3.2% Basophils (%) (Auto) 0.6% Absolute Immature Granulocyte (auto 0.00T/MM3 Absolute Neutrophils (auto) 3.9T/MM3 Absolute Lymphocytes (auto) 0.7T/MM3 Absolute Monocytes (auto) 0.5T/MM3 Absolute Eosinophils (auto) 0.2T/MM3 Absolute Basophils (auto) 0.0T/MM3 Turbidity < 20 Sodium Level 140MEQ/L Potassium Level 4.8MEQ/L Chloride Level 98MEQ/L Carbon Dioxide Level 27MEQ/L Anion Gap 15MEQ/L Blood Urea Nitrogen 88.0MG/DL Creatinine 2.6MG/DL Glomerular Filtration Rate Calc 18 BUN/Creatinine Ratio 34RATIO Glucose Level 359MG/DL Calculated Osmolality 310MOSM/KG Calcium Level 9.3MG/DL Total Bilirubin 0.80MG/DL Icterus Index < 2 Aspartate Amino Transf (AST/SGOT) 31U/L Alanine Aminotransferase (ALT/SGPT) 29U/L Alkaline Phosphatase 117U/L Total Protein 6.7G/DL Albumin 3.8G/DL Globulin 2.9G/DL Albumin/Globulin Ratio 1.3RATIO Chemistry Specimen Hemolysis < 15 (OCTOBER,[facility] DO) Lab Results Laboratory Tests Test 10/09/16 22:49 White Blood Count 5.3T/MM3 Red Blood Count 2.55M/MM3 Hemoglobin 7.9GM/DL Hematocrit 25.8% Mean Corpuscular Volume 101.2UM3 Mean Corpuscular Hemoglobin 31.0UUG Mean Corpuscular Hemoglobin Concent 30.6GM/DL RDW Standard Deviation 44.3FL Platelet Count 272T/MM3 Mean Platelet Volume 9.8UM3 Immature Granulocyte % (Auto) 0.0% Neutrophils (%) (Auto) 73.4% Lymphocytes (%) (Auto) 12.9% Monocytes (%) (Auto) 9.9% Eosinophils (%) (Auto) 3.2% Basophils (%) (Auto) 0.6% Absolute Immature Granulocyte (auto 0.00T/MM3 Absolute Neutrophils (auto) 3.9T/MM3 Absolute Lymphocytes (auto) 0.7T/MM3 Absolute Monocytes (auto) 0.5T/MM3 Absolute Eosinophils (auto) 0.2T/MM3 Absolute Basophils (auto) 0.0T/MM3 Turbidity < 20 Sodium Level 140MEQ/L Potassium Level 4.8MEQ/L Chloride Level 98MEQ/L Carbon Dioxide Level 27MEQ/L Anion Gap 15MEQ/L Blood Urea Nitrogen 88.0MG/DL Creatinine 2.6MG/DL Glomerular Filtration Rate Calc 18 BUN/Creatinine Ratio 34RATIO Glucose Level 359MG/DL Calculated Osmolality 310MOSM/KG Calcium Level 9.3MG/DL Total Bilirubin 0.80MG/DL Icterus Index < 2 Aspartate Amino Transf (AST/SGOT) 31U/L Alanine Aminotransferase (ALT/SGPT) 29U/L Alkaline Phosphatase 117U/L Total Protein 6.7G/DL Albumin 3.8G/DL Globulin 2.9G/DL Albumin/Globulin Ratio 1.3RATIO Chemistry Specimen Hemolysis < 15 (UZMA DONALD APRN) Medications Current ED Medications Morphine Sulfate 2 mg 2 mg O ONCE IV ; Start 10/09/16 at 22:30; Stop 10/09/16 at 22:31; Status DC Sodium Chloride 1,000 ml @ 1,000 mls/hr Q1H ONCE IV Last administered on t 23:39; Start 10/09/16 at 23:15; Stop 10/10/16 at 00:14 Sodium Chloride (Normal Saline IV) 1,000 ml @ 100 mls/hr Q10H IV ; Start at 23:31; Status UNV ( DO) Medications Current ED Medications Morphine Sulfate 2 mg 2 mg O ONCE IV ; Start 10/09/16 at 22:30; Stop 10/09/16 at 22:31; Status DC Sodium Chloride (Normal Saline IV) 1,000 ml @ 1,000 mls/hr Q1H ONCE IV ; Start 10/09/16 at 23:15; Stop 10/10/16 at 00:14 (UZMA DONALD APRN) Progress Progress Hgb today is 7.9. After talking with her daughter she states that she is chronically low but is normally above 9.0. Never does get above 10.0. They have not been giving her her iron tablets like they should have lately. BUN is 88 and creatinine is 2.6 .Her daughter does know that her creatinine typically runs above 2.0.. UA is pending collection. We did go ahead and get the pelvic xray report from [facility] and it does read as a suspicion for a right pubic ramus fracture. Discussed findings with Dr Reese. He will admit OBS at this time. (UZMA DONALD APRN) UZMA DONALD APRN Oct 09, 2016 22:35 OCTOBER,ELISA Obando DO Oct 10, 2016 00:12
[2016-10-09 22:56] LABS: BASOPHILS % (AUTO) 0.6 % (0-2); EOSINOPHILS # (AUTO) 0.2 T/MM3 (0-0.5); EOSINOPHILS % (AUTO) 3.2 % (0-4); HCT - HEMATOCRIT 25.8 % (36-46); HGB - HEMOGLOBIN 7.9 GM/DL (12-16); LYMPHOCYTES # (AUTO) 0.7 T/MM3 (1-4.8); LYMPHOCYTES % (AUTO) 12.9 % (23-45); MEAN CORPUSCULAR HGB CONC(MCHC 30.6 GM/DL (31-37); MEAN CORPUSCULAR VOLUME 101.2 UM3 (80-100); MEAN PLATELET VOLUME 9.8 UM3 (9.4-12.4); MONOCYTES # (AUTO) 0.5 T/MM3 (0-0.8); MONOCYTES % (AUTO) 9.9 % (0-9.0); NEUTROPHILS #(AUTO)-ABSOLUTE 3.9 T/MM3 (1.8-7.7); NEUTROPHILS % (AUTO) 73.4 % (33-66); RED BLOOD COUNT 2.55 M/MM3 (4.00-5.20); WBC - WHITE BLOOD COUNT 5.3 T/MM3 (4.5-11.0)
[2016-10-09 23:06] LABS: ALBUMIN 3.8 G/DL (3.5-5.0); ALBUMIN/GLOBULIN RATIO 1.3 RATIO (1.1-2.2); ALKALINE PHOSPHATASE 117 U/L (38-126); ALT (SGPT) 29 U/L (9-52); ANION GAP 15 MEQ/L (5-15); AST (SGOT) 31 U/L (14-36); BUN/CREATININE RATIO 34 RATIO (6-26); CALCIUM 9.3 MG/DL (8.4-10.2); CHLORIDE 98 MEQ/L (98-107); CO2 - CARBON DIOXIDE 27 MEQ/L (22-30); CREATININE 2.6 MG/DL (0.7-1.2); GLOMERULAR FILTRATION RATE 18; GLUCOSE 359 MG/DL (65-110); POTASSIUM 4.8 MEQ/L (3.6-5); SODIUM 140 MEQ/L (134-144); TOTAL PROTEIN 6.7 G/DL (6.3-8.2)
[2016-10-09] MEDS ORDERED: IRON PO (23:12)
[2016-10-09] MEDS ORDERED: VIT C PO (23:12)
[2016-10-09] MEDS ORDERED: NORMAL SALINE 1,000 ML IV ONE (23:15)
[2016-10-09 23:35] VITALS: BP 157/81; PULSE 82; RESP 20; TEMP 96.5; O2SAT 96
[2016-10-09] MEDS ORDERED: HYDROCODONE/APAP 5 mg/325 mg TABLET PO PRN (23:45)
[2016-10-09] MEDS ORDERED: HYDROMORPHONE 2mg/ml INJECTION IV PRN (23:45)
[2016-10-09] MEDS ORDERED: DEXTROSE 50% SYRINGE 50ml (Eq. 1 AMP) IV PRN (23:45)
[2016-10-09] MEDS ORDERED: ONDANSETRON 4mg/2ml INJECTION IV PRN (23:45)
[2016-10-09] MEDS ORDERED: GLUCOSE ORAL GEL 40% 37.5 G TUBE PO PRN (23:45)
--- OUTSIDE RECORDS SUMMARY | 2016-10-09 23:53 | XMS REPORT | Continuity of Care Document ---
Author Author [facility] Organization [facility] Address Unknown Phone Unavailable Allergies [...] Status Pt. Type Provider Facility Loc./Unit Complaint [id number] 06/17/2012 22:11:00 2012 16:30:00 DIS Inpatient Ceferino Cardona DO [facility] [address]
--- NOTE | 2016-10-10 00:30 | NUR ---
ADMIT ARRIVED TO [facility] [id number] FROM ED [facility], PT'S DAUGHTER IS AT BEDSIDE.
[2016-10-10 00:35] VITALS: Ht 167.6 cm; Wt 50.0 kg
[2016-10-10 00:35] LABS: BLOOD, URINE TRACE-INTACT (NEGATIVE); COLOR,URINE YELLOW (YELLOW); LEUKOCYTE ESTERASE ,URINE NEGATIVE (NEGATIVE); NITRITE,URINE NEGATIVE (NEGATIVE); UROBILINOGEN,URINE 0.2 EU/DL (NORMAL)
[2016-10-10 00:53] LABS: BACTERIA,URINE 4+ (NEGATIVE); RBC,URINE NONE SEEN /HPF (0-3); WBC,URINE NONE SEEN /HPF (0-5)
[2016-10-10] MEDS: NORMAL SALINE 1,000 ML IV SCH ×4 (00:55→21:44)
--- NOTE | 2016-10-10 02:21 | HPPDOC ---
SULMA ROBERTS MD 10/10/16 0212: HPI - Adult Date DATE: 10/10/16 TIME: 02:09 General Chief Complaint: right hip pain History of Present Illness This is an 80-year-old female who lives with her daughter in [place]. The patient apparently fell on 09/27/16. The patient was evaluated on 09/29/[address] [facility]. The patient was diagnosed with a right pelvis fracture. The patient has chronic pain to this right hip status post a hip fracture in the past. The patient was discharged to home with oral pain medication. The patient does have a history of constipation with difficulty bowel movements recently. The patient continues to do poorly at home. Decreasing energy. The daughter is currently unable to assist with her activities of living. The patient was brought to the emergency department for evaluation. The patient does have a history of chronic kidney disease stage IV. Workup in the emergency department demonstrates worsening renal function. At this time the patient is to be admitted to the hospital for assessment of injury to right pelvis. Additionally the patient will have her renal function further addressed. This was a non-syncopal fall. Past Medical History Past Medical History iron defeciency anemia DM2 HtN osteopporosis CKD4 hyponatremia Surgical History Patient's Surgical History: ERCP stone extraction common bile duct right hip pinning bilateral cataract extraction g tube placement and removal Current Medications Home Meds Reported Medications [Liquid Iron + Vit C] No Conflict Check, 1 TSP PO DAILY 10/09/16 Glimepiride (Glimepiride) 2 Mg Tablet, 2 MG PO DAILY, #30 10/09/16 Insulin NPL/Insulin Lispro (Humalog Mix 50-50 Kwikpen) 100 Unit/1 Ml Insuln.pen , 14 UNIT SQ PM, #15 10/09/16 Insulin Lispro (Humalog) 100 Unit/1 Ml Insuln.pen, 4 UNIT SQ DAILY, #15 10/09/16 Amlodipine Besylate (Amlodipine Besylate) 5 Mg Tablet, 5 MG PO DAILY, #30 10/09/16 Hydrocodone/Apap ([place] 5-325 Tablet) 5-325 Tablet, 1 TAB PO PRN Y for PAIN, #12 10/09/16 Furosemide (Lasix) 20 Mg Tablet, 20 MG PO DAILY 07/16/11 Discontinued Reported Medications Potassium Chloride (Potassium Chloride) 10 Meq Tab.prt.sr, 10 MEQ PO DAILY 07/16/11 Insulin Npl/Insulin Lispro (Humalog Mix 50/50 Vial) 10 Ml Vial, 12 - 13 DAILY NOON 07/16/11 Ferrous Sulfate (Slow Fe) 160 Mg Tablet.sa, 2 TAB PO DAILY 07/16/11 Amlodipine (Norvasc) 2.5 Mg Tablet, 2.5 MG PO DAILY 07/16/11 Metformin Hcl (Metformin Hcl Er) 500 Mg Tab.sr.24h, 500 MG PO DAILY PM 07/16/11 Glimepiride (Glimepiride) 4 Mg Tablet, 4 MG PO BID 07/16/11 Allergies: Coded Allergies: Penicillins (Verified Allergy, Unknown, 07/16/11) promethazine (Verified Adverse Reaction, Severe, MENTAL STATUS CHANGE, 15/06) Family History Family History: non contributory at this age Social History Smoking Status: Never smoker Substance Use Type: does not use Alcohol Intake: none Marital Status: Housing: house Household Members: family Current Occupational Status: retired Advance Directives: Yes DPOA for Healthcare Only (HENRI CHAVZE, DAUGHTER) Review of Systems All Other Systems All Other Systems: Reviewed (remainder of 10-point ROS Neg.) Comments No headache, no change in vision, is somewhat hard of hearing, no difficulty swallowing, no neck pain, no chest pain, no shortness of breath, increasing weakness as noted above, no fever chills or sweats, no cough, no congestion, no nausea or vomiting, has some constipation, no blood in urine or stool, no focal neurological complaints, has right hip pain as noted above, a 10 point review of systems is otherwise negative except for outlined above Physical Exam General General Nourishment: well nourished, well developed, apparent age, adult General Body Habitus: well groomed Vital Signs Vital Signs Date Time Temp Pulse Resp B/P Pulse Ox O2 Delivery O2 Flow Rate FiO2 10/10/16 00:30 98.4 68 18 181/75 96 Room Air Height (Feet): 5 Height (Inches): 6.00 Telemetry Rhythm: Sinus Rhythm Eyes Brief: FOUND: EOMI, NOT FOUND: scleral icterus Neck Brief: FOUND: midline, NOT FOUND: nuchal rigidity, other, spasm, tenderness, tracheal deviation Respiratory Brief: FOUND: clear all tiwari, equal bilaterally, NOT FOUND: other , rales, spasm, symmetrical, tenderness, wheezes Cardiovascular (brief) Cardiac Brief: FOUND: pedal edema, peripheral edema, regular rate, regular rhythm, NOT FOUND: click, gallop, murmur, other, rub Abdomen (brief) Abdominal Brief: FOUND: BS normo active x4, hepatosplenomegaly, soft, NOT FOUND : distended, tender Musculoskeletal (brief) Musculoskeletal Brief: FOUND: deformity, loss of motion, spasm, tenderness Comments right hip with limited ROM Integumentary (brief) Integumentary Brief: FOUND: dry, pink, warm Neurologic (brief) Comments generally weak with focal deficit Neurologic RN Documented GCS Eye Opening: Verbal: Motor: Total: Psychiatric (brief) FOUND: alert, attentive, normal affect, oriented Laboratory Laboratory Tests Test 10/09/16 22:49 10/10/16 00:08 White Blood Count 5.3T/MM3 Red Blood Count 2.55M/MM3 Hemoglobin 7.9GM/DL Hematocrit 25.8% Mean Corpuscular Volume 101.2UM3 Mean Corpuscular Hemoglobin 31.0UUG Mean Corpuscular Hemoglobin Concent 30.6GM/DL RDW Standard Deviation 44.3FL Platelet Count 272T/MM3 Mean Platelet Volume 9.8UM3 Immature Granulocyte % (Auto) 0.0% Neutrophils (%) (Auto) 73.4% Lymphocytes (%) (Auto) 12.9% Monocytes (%) (Auto) 9.9% Eosinophils (%) (Auto) 3.2% Basophils (%) (Auto) 0.6% Absolute Immature Granulocyte (auto 0.00T/MM3 Absolute Neutrophils (auto) 3.9T/MM3 Absolute Lymphocytes (auto) 0.7T/MM3 Absolute Monocytes (auto) 0.5T/MM3 Absolute Eosinophils (auto) 0.2T/MM3 Absolute Basophils (auto) 0.0T/MM3 Turbidity < 20 Sodium Level 140MEQ/L Potassium Level 4.8MEQ/L Chloride Level 98MEQ/L Carbon Dioxide Level 27MEQ/L Anion Gap 15MEQ/L Blood Urea Nitrogen 88.0MG/DL Creatinine 2.6MG/DL Glomerular Filtration Rate Calc 18 BUN/Creatinine Ratio 34RATIO Glucose Level 359MG/DL Calculated Osmolality 310MOSM/KG Calcium Level 9.3MG/DL Total Bilirubin 0.80MG/DL Icterus Index < 2 Aspartate Amino Transf (AST/SGOT) 31U/L Alanine Aminotransferase (ALT/SGPT) 29U/L Alkaline Phosphatase 117U/L Total Protein 6.7G/DL Albumin 3.8G/DL Globulin 2.9G/DL Albumin/Globulin Ratio 1.3RATIO Chemistry Specimen Hemolysis < 15 Urine Collection Type Cleancatch-midstream Urine Color Yellow Urine Turbidity Sl cloudy Urine pH 5.0 Urine Specific [place] 1.015 Urine Protein 1+ Urine Glucose (UA) 1+ Urine Ketones Trace Urine Blood Trace-intact Urine Nitrite Negative Urine Bilirubin Negative Urine Urobilinogen 0.2EU/DL Urine Leukocyte Esterase Negative Urine RBC None seen/HPF Urine WBC None seen/HPF Urine Bacteria 4+ Urine Culture Indicated Cult not indicated Radiology see report from [facility] Assessment & Plan Assessment 1. Right pelvis fracture acute present on admission: As noted above this occurred 2 weeks ago. Patient is failing at home. Patient will be admitted for further therapy. This would include PT and OT considerations. Consider orthopedic consultation tomorrow. They have not been called yet. This patient will most likely benefit from a skilled admission and/or rehabilitation admission. She has every opportunity to return to a prior level of function. She is motivated to participate with therapy. 2. Acute on chronic kidney disease stage IV present on admission: Patients renal function is worse from baseline. Well hydrate overnight, reassess in the morning. The BUN/creatinine ratio is concerning for a significant prerenal event. Patient is on Lasix which will be held. Patient is a diabetic which makes her kidney disease more problematic. 3. Type 2 diabetes mellitus chronic present on admission: Correction of plan, hold oral and injectable insulin. Renal disease will affect metabolism. Risk for hypoglycemia exist. 4. Hypertension chronic present on admission: Well continue Norvasc 5. DVT prophylaxis: SCD 6. Gastric prophylaxis: Proton pump inhibitor DVT Prophylaxis: SCD'S Code Status Full Code, unverified Hospital Course Summary Disclaimer The hospital course summary below is not to be considered part of the above Progress Note. GARRET ZALDIVAR MD 10/10/16 1532: Past Medical History Current Medications Home Meds Reported Medications [Liquid Iron + Vit C] No Conflict Check, 1 TSP PO DAILY 10/09/16 Glimepiride (Glimepiride) 2 Mg Tablet, 2 MG PO DAILY, #30 10/09/16 Insulin NPL/Insulin Lispro (Humalog Mix 50-50 Kwikpen) 100 Unit/1 Ml Insuln.pen , 14 UNIT SQ PM, #15 10/09/16 Insulin Lispro (Humalog) 100 Unit/1 Ml Insuln.pen, 4 UNIT SQ DAILY, #15 10/09/16 Amlodipine Besylate (Amlodipine Besylate) 5 Mg Tablet, 5 MG PO DAILY, #30 10/09/16 Hydrocodone/Apap ([place] 5-325 Tablet) 5-325 Tablet, 1 TAB PO PRN Y for PAIN, #12 10/09/16 Furosemide (Lasix) 20 Mg Tablet, 20 MG PO DAILY 07/16/11 Discontinued Reported Medications Potassium Chloride (Potassium Chloride) 10 Meq Tab.prt.sr, 10 MEQ PO DAILY 07/16/11 Insulin Npl/Insulin Lispro (Humalog Mix 50/50 Vial) 10 Ml Vial, 12 - 13 DAILY NOON 07/16/11 Ferrous Sulfate (Slow Fe) 160 Mg Tablet.sa, 2 TAB PO DAILY 07/16/11 Amlodipine (Norvasc) 2.5 Mg Tablet, 2.5 MG PO DAILY 07/16/11 Metformin Hcl (Metformin Hcl Er) 500 Mg Tab.sr.24h, 500 MG PO DAILY PM 07/16/11 Glimepiride (Glimepiride) 4 Mg Tablet, 4 MG PO BID 07/16/11 Allergies: Coded Allergies: Penicillins (Verified Allergy, Unknown, 07/16/11) promethazine (Verified Adverse Reaction, Severe, MENTAL STATUS CHANGE, 15/06) Assessment & Plan Problems: (1) Pubic ramus fracture Status: Acute Qualifiers: Fracture type: closed Laterality: right Assessment & Plan: Inferior/superior pubic rami fractures (2) Falls Qualifiers: Encounter type: subsequent encounter Qualified Codes: W19.XXXD - Unspecified fall, subsequent encounter Assessment & Plan: Multiple falls per history (3) Macrocytic anemia Assessment & Plan: MCV 96 in April (4) CKD (chronic kidney disease) stage 4, GFR 15-29 ml/min Status: Chronic (5) DM2 (diabetes mellitus, type 2) Status: Chronic Qualifiers: Diabetes mellitus complication status: with hyperglycemia Assessment & Plan: Probable diabetic nephropathy; A1c 8.8 on 09/08/16 (6) HTN (hypertension) Status: Chronic (7) Osteoporosis Status: Chronic Assessment 's note reviewed. interviewed and examined. CC: Fall, pelvic pain HPI: Mrs. Chavez is an 81-year-old female who fell on 09/27 and was subsequently evaluated at [facility] for pelvic pain 2 days later. Report from [place] indicates there was suspicion of a right superior pubic rami fracture. She was discharged with a prescription for 12 tablets of [place] and Colace. The patient indicates that she fell in the kitchen after bumping into her daughter. She thinks she fell one other time that day and is followed about 3 times in the past month but has always been able to get up by herself. She denies dizziness or lightheadedness, has had no palpitations associated with falls, and denies tripping. Her daughter is not present [place] every chart to provide supplemental history. Patient has continued to have pain in her pelvis and localizes it to the tailbone. Pain worsens with ambulation but she's had no numbness in her legs or incontinence. She complains of the muscles at the site of her legs being sore. The patient lives with her daughter but is alone during the day and has not been functioning well and was subsequently reevaluated in the emergency room last night and hospitalized on an observation basis for further assessment. Patient denies constipation, nausea, or vomiting. PH/SH/FH: agree with that recorded above. Patient reports siblings all of old age as did parents. Patient refers me to her daughter for CODE STATUS. ROS: 10 point review as previously described by Dr. Roberts. Essentially patient reports that she only has pain in her tailbone, legs, and hips. EXAM: General-NAD, somewhat rambling speech, cooperative HEENT-PERRL, EOMI without nystagmus, conjugate gaze, facial structures symmetric , oropharynx clear, neck supple and without adenopathy, multiple missing teeth in the upper dental ridge Lungs-respirations nonlabored, good airflow, breath sounds clear Cardiac-regular rhythm, S1-S2 Abd-diminished bowel sounds, abdomen soft and nontender Ext-+1 edema bilateral lower extremities Skin-bruising on both knees, multiple of stressing on the sacrum Vaak-otov-avmopytu wasting present, degenerative changes in the small joints of the hands, no pain with rocking the pelvis or with gentle palpation over anterior pelvis Neuro-cranial nerves III through XII grossly intact, motor tone normal, no tremor present, unable to raise either leg off the bed due to pain in her pelvis , dorsiflexion/plantar flexion graded 4/5 bilaterally, fur storage clerk equal and strong but proximal upper extremity power diminished-4/5. Sensation intact to light touch bilaterally Psych-pleasant, cooperative, mildly confused-baseline uncertain 3 views of the pelvis and x-rays of the sacrum/coccyx reviewed by myself demonstrating right inferior/superior pubic rami fractures. Laboratory data notable for hyperglycemia, hemoglobin 7.8 with MCV 101.6 compared to 10.0 last April, and BUN/creatinine 84/2.3 compared to 75/2.45 on 09/10/2016 UA with bacteria but no pyuria. A/P: Supplemental history needed but I been unable to reach the patient's daughter today. Continue to hold Lasix and oral diabetic agent. Patient since that hypoglycemia but certainly that is not what we have seen to date. Patient describes use of corrective scale insulin only. Orthostatic vital signs to be obtained. Continue low-volume fluid replacement. IRU evaluating for rehabilitation stay due to falls and pelvic fractures. Given nature fractures orthopedic evaluation not needed at this time. No indication of urinary tract infection. Creatinine stable from August although BUN is slightly higher, reassess tomorrow morning with fluids. MCV beyxvrlc-[id number]-60/folate/TSH to be checked. Anemia likely combination of anemia of chronic renal disease and possibly nutritional deficiencies. Constipation evident on u-pyxq-cncsy regimen initiated. Observation status. IV Protonix discontinued. 10/10/16-1555 patient's daughter arrived shortly after I completed above note and indicated that patient does not want resuscitative efforts initiated in the event of cardiac or pulmonary arrest at which point patient's confirmed DO NOT RESUSCITATE order. She additionally reported that the patient had a couple falls and that she was not present when the patient fell in the kitchen and that she required assistance getting up. The patient takes one shot of 50/50 insulin daily at supper and a shot of short acting insulin at breakfast based on blood sugar. Daughter additionally confirms diagnosis of dementia. SULMA ROBERTS MD Oct 10, 2016 02:12 GARRET ZALDIVAR MD Oct 10, 2016 15:32
[2016-10-10 03:04] VITALS: PULSE 72; RESP 18; O2SAT 94
[2016-10-10 04:34] VITALS: BP 180/67; PULSE 76; RESP 20; TEMP 97; O2SAT 94
[2016-10-10 04:59] LABS: BASOPHILS % (AUTO) 0.4 % (0-2); EOSINOPHILS # (AUTO) 0.3 T/MM3 (0-0.5); EOSINOPHILS % (AUTO) 5.3 % (0-4); HCT - HEMATOCRIT 25.5 % (36-46); HGB - HEMOGLOBIN 7.8 GM/DL (12-16); IMMATURE GRANULOCYTE # (AUTO) 0.01 T/MM3 (0.00-0.03); IMMATURE GRANULOCYTE % (AUTO) 0.2 % (0.0-0.5); LYMPHOCYTES # (AUTO) 1.4 T/MM3 (1-4.8); LYMPHOCYTES % (AUTO) 26.5 % (23-45); MEAN CORPUSCULAR HGB 31.1 UUG (26-34); MEAN CORPUSCULAR HGB CONC(MCHC 30.6 GM/DL (31-37); MEAN CORPUSCULAR VOLUME 101.6 UM3 (80-100); MEAN PLATELET VOLUME 10.5 UM3 (9.4-12.4); MONOCYTES # (AUTO) 0.4 T/MM3 (0-0.8); MONOCYTES % (AUTO) 7.4 % (0-9.0); NEUTROPHILS #(AUTO)-ABSOLUTE 3.2 T/MM3 (1.8-7.7); NEUTROPHILS % (AUTO) 60.2 % (33-66); RED BLOOD COUNT 2.51 M/MM3 (4.00-5.20); WBC - WHITE BLOOD COUNT 5.3 T/MM3 (4.5-11.0)
[2016-10-10 05:08] LABS: ANION GAP 14 MEQ/L (5-15); BUN/CREATININE RATIO 37 RATIO (6-26); CALCIUM 8.8 MG/DL (8.4-10.2); CHLORIDE 101 MEQ/L (98-107); CO2 - CARBON DIOXIDE 26 MEQ/L (22-30); CREATININE 2.3 MG/DL (0.7-1.2); GLOMERULAR FILTRATION RATE 20; GLUCOSE 317 MG/DL (65-110); POTASSIUM 4.4 MEQ/L (3.6-5); SODIUM 141 MEQ/L (134-144)
[2016-10-10 05:39] LABS: THYROID STIM HORMONE-TSH 1.72 MIU/L (0.47-4.68)
[2016-10-10] MEDS: INSULIN ASPART 100 UNIT/ML SQ PRN ×4 (06:29→21:19)
[2016-10-10 07:28] VITALS: BP 156/70; PULSE 80; RESP 18; TEMP 97; O2SAT 98
[2016-10-10] MEDS: AMLODIPINE 5 MG TABLET PO SCH (08:29)
--- NOTE | 2016-10-10 08:40 | NUR ---
Pain Patient reporting pain rated 7/10 in hip/buttocks. Pain medication offered and patient did not want to take narcotics. Called and received prn orders and will order Tylenol from those.
[2016-10-10] MEDS ORDERED: ACETAMINOPHEN 325 MG TABLET PO PRN ×2 (08:45)
[2016-10-10] MEDS ORDERED: PRN ORDERS MC (08:45)
[2016-10-10] MEDS ORDERED: PANTOPRAZOLE 40mg INJECTION IV SCH (09:00)
--- NOTE | 2016-10-10 10:00 | NUR ---
Pain recheck Patient's pain was reassessed and patient reported feeling much better and reported pain was maybe "a 3". Will continue to monitor.
--- NOTE | 2016-10-10 10:58 | NUR ---
ERICA CM VISITED PT. CM EXPLAINED ROLE AND PROVIDED CONTACT INFORMATION. CM DISCUSSED IRU WITH PT AND SHE WAS HOPEFUL BUT HAS NO IDEA ABOUT ALTERNATIVE PLAN. CM LEFT MESSAGE FOR PT DAUGHTER TO EXPLAIN ROLE AND PROVIDED CONTACT INFORMATION.
[2016-10-10 11:16] VITALS: BP 182/76; PULSE 82; RESP 18; TEMP 97.3; O2SAT 97
--- NOTE | 2016-10-10 11:18 | NUR ---
BGM Patient's BGM was elevated at 393. Sliding scale insulin given.
--- NOTE | 2016-10-10 12:10 | NUR ---
ERICA MALDONADO SPOKE WITH PT DAUGHTER HENRI AND SHE IS OKAY WITH IRU BUT SHE IS NOT ABLE TO FINANCE A FACILITY IF PT IS UNABLE TO USE MEDICARE BENEFIT. HENRI IS AWARE THAT HOME HEALTH IS AN OPTION WELL. HENRI WILL VISIT PT TODAY AT 3:30PM. HENRI AWARE TO CONTACT CM IF NEEDS ARISE.
--- NOTE | 2016-10-10 12:58 | NUR ---
IRU referral received. Met w/ patient and reviewed programmatic expectations of IRU. Patient acknowledged expectation of 3 hours of therapy, 5 days/week and voiced a willingness to do whatever was necessary in order to return home to live with her daughter. CM notified. Will review referral with Dr. Zelaya and will continue to coordinate with CM and referring provider. Per patient's and CM's request, will call daughter to discuss IRU as option. PT/OT to yovani.
--- NOTE | 2016-10-10 13:41 | NUR ---
Wound Consult Dara from wound team came to see patient though patient is down at imaging right now. Dara stated to keep a Mepilex dressing over pressure area on sacrum and someone from wound team would be over tomorrow to see her. Will pass along.
[2016-10-10] MEDS: POLYETHYL.GLYCOL 3350 PACKET 17gm PO SCH (14:30)
[2016-10-10] MEDS ORDERED: MILK OF MAGNESIA 30 ML SUSP PO PRN (14:30)
--- NOTE | 2016-10-10 14:40 | DI ---
Indication: ITS.REASON: fall, reported possible R sup pubic rami fx 1 week ago PROCEDURE: PELVIS MINIMUM 3 VIEW: Encounter: Initial Comparison: None Findings: Severe bony demineralization limiting detection of nondisplaced fractures. Mildly displaced right superior and inferior pubic ramus fractures. Right femoral head replacement. No additional acute fracture or dislocation seen. Impression: Closed posttraumatic right superior and inferior pubic rami fractures. .
--- NOTE | 2016-10-10 14:41 | DI ---
Indication: ITS.REASON: fall, tailbone pain PROCEDURE: SACRUM COCCYX: Encounter: Initial Comparison: Pelvis radiographs from the same time Findings: Right superior and inferior pubic ramus fractures are again noted. Severe bony demineralization limiting detection of nondisplaced fractures. No displaced sacrococcygeal fracture seen. Impression: As above. .
[2016-10-10 15:39] VITALS: BP 163/71; PULSE 74; RESP 18; TEMP 97.2; O2SAT 96
--- NOTE | 2016-10-10 15:42 | NUR ---
ERICA CM ADMINISTERED PT A CODE 44 TODAY. PT IS ALERT WITH CONFUSION. CM EXPLAINED STATUS TO DAUGHTER WHO IS PRESENT AND SHE SIGNED PT MAGANA LETTER. DAUGHTER IS AWARE THAT CM IS AWAITING TO HERE FROM IRU REGARDING ACCEPTANCE. DAUGHTER IS AWARE THAT IF D/Rivka PT TODAY THAT CM CAN HELP SET UP HOME HEALTH IF UNABLE TO PAY PRIVATELY FOR CARE AT FACILITY. DAUGHTER IS HOPEFUL FOR PT TO GO TO IRU. DAUGHTER AWARE TO CONTACT CM IF NEEDS ARISE.
[2016-10-10] MEDS ORDERED: HYDROCODONE/APAP 5 mg/325 mg TABLET PO PRN (15:45)
--- NOTE | 2016-10-10 15:46 | NUR ---
DM Screen Diet: CC 1999 Patient's daughter is her primary customer order clerk.Patient's daughter expressed concern for her mother's high blood sugar readings. Patient's daughter states she counts carbs for mother's meals and ensures her mother is testing blood sugars 3x/day. Patient states she doesn't drink sugary beverages.Lastly, Patient's daughter expressed needing help with insulin dosages, especially with an A1C of 8. art gallery internship feels patient would benefit from diabetes outpatient counseling. RD available @ 1887 Addendum: 10/10/16 at [address] Student charting reviewed by Stem Roller.
--- NOTE | 2016-10-10 16:30 | NUR ---
IRU referral reviewed with Dr. Zelaya. Advised that patient does not appear to meet admission criteria for IRU. Therapy cites concerns that patient does not have the capacity to retain teaching and previously identified acute medical conditions appear to be chronic in nature. Does not appear to require inpatient level medical coverage.
[2016-10-10] MEDS: ASPART SQ SCH (17:08)
[2016-10-10] MEDS: INSULIN NPH SQ SCH (17:08)
[2016-10-10] MEDS ORDERED: INSULIN NPL SQ SCH (17:30)
[2016-10-10] MEDS ORDERED: LISPRO SQ SCH (17:30)
--- NOTE | 2016-10-10 17:33 | NUR ---
Status Patient seems to do better and want to do cares when daughter is not present in room. When daughter is present patient carries on and does not attempt to do cares for self. Patient is able to stand up with minimal help. Ambulates a few steps to bedside commode. Incontinent of bowel and bladder today. Kinza care provided. Mepilex dressing present to right buttocks area. Good appetite with meals. Patient's BGM's elevated today and has received sliding scale insulin. Alarms in use for patient safety. Call light within reach.
[2016-10-10] MEDS: SENNA + DOCUSATE TAB PO SCH (21:19)
[2016-10-11] VITALS: BP 161/72; PULSE 84; RESP 18; TEMP 98.5; O2SAT 98
--- NOTE | 2016-10-11 03:37 | NUR ---
SUMMARY PT IS ALERT, ORIENTED TO SELF ONLY. PT REPORTS PAIN BUT DENIES NEED FOR PAIN MEDICATION. PT IS ABLE TO GET UP WITH ASSIST OF ONE. PRESSURE SORE ON RT BUTTOCK, DRESSING DRY AND INTACT. IV REPLACED DUE TO LEAKING, NEW ONE PLACED IN THE RT FOREARM, IVF AT 100 ML/HR. ROOM AIR.
[2016-10-11 05:17] LABS: HCT - HEMATOCRIT 22.7 % (36-46); HGB - HEMOGLOBIN 6.7 GM/DL (12-16); MEAN CORPUSCULAR HGB 29.9 UUG (26-34); MEAN CORPUSCULAR HGB CONC(MCHC 29.5 GM/DL (31-37); MEAN CORPUSCULAR VOLUME 101.3 UM3 (80-100); MEAN PLATELET VOLUME 10.3 UM3 (9.4-12.4); RED BLOOD COUNT 2.24 M/MM3 (4.00-5.20); WBC - WHITE BLOOD COUNT 4.8 T/MM3 (4.5-11.0)
[2016-10-11 05:27] LABS: ANION GAP 9 MEQ/L (5-15); BUN/CREATININE RATIO 33 RATIO (6-26); CALCIUM 8.8 MG/DL (8.4-10.2); CHLORIDE 110 MEQ/L (98-107); CO2 - CARBON DIOXIDE 27 MEQ/L (22-30); GLOMERULAR FILTRATION RATE 24; GLUCOSE 57 MG/DL (65-110); PHOSPHORUS 3.4 MG/DL (2.5-4.5); POTASSIUM 4.1 MEQ/L (3.6-5); SODIUM 146 MEQ/L (134-144)
[2016-10-11 07:30] VITALS: BP 194/88; PULSE 83; RESP 18; TEMP 97.4; O2SAT 94
[2016-10-11 08:01] VITALS: BP 185/69
[2016-10-11 08:06] LABS: HGB - HEMOGLOBIN 8.1 GM/DL (12-16)
[2016-10-11] MEDS: POLYETHYL.GLYCOL 3350 PACKET 17gm PO SCH (08:34)
[2016-10-11] MEDS: ASPART SQ SCH (08:34)
[2016-10-11] MEDS: AMLODIPINE 5 MG TABLET PO SCH (08:34)
[2016-10-11] MEDS: INSULIN NPH SQ SCH (08:34)
[2016-10-11] MEDS: SENNA + DOCUSATE TAB PO SCH (08:34)
--- NOTE | 2016-10-11 09:04 | NUR ---
ERICA MALDONADO IN TO VISIT PATIENT, SHE IS ALERT AND PARTICIPATES IN CONVERSATION BUT CONFUSED AT TIMES. I LEFT MY CONTACT INFORMATION. PATIENT GAVE PERMISSION TO TALK WITH HER DAUGHTER, HENRI. I CALLED AND LEFT A VOICE MESSAGE FOR HENRI TO RETURN CALL TO CM.
[2016-10-11] MEDS: NORMAL SALINE 1,000 ML IV SCH (09:05)
--- NOTE | 2016-10-11 09:31 | NUR ---
CM PATIENT'S DAUGHTER, HENRI RETURNED CALL AND WAS INFORMED THAT PATIENT WOULD NOT QUALIFY FOR IRU. SHE IS REFUSING TO TAKE PATIENT HOME, IS UNABLE TO CONTINUE TO CARE FOR HER IN THAT SETTING, STATING PATIENT IS UNABLE TO GET UP ON HER OWN, IS NOT MOBILE AND FEELS SHE NEEDS 24 HOUR CARE. SHE IS REQUESTING AN ASSESSMENT, LOOK INTO SNF/[facility] [employer] [facility]ACHINE OPERATOR CARE PLACEMENT.
--- NOTE | 2016-10-11 10:02 | NUR ---
ERICA MALDONADO CONTACTED [facility] AT [phone] ABOUT POSSIBLE PLACEMENT AND SPOKE WITH DANE, THEY DO HAVE BEDS AVAILABLE AND CAN WORK WITH MEDICAID. WILL FAX OVER REQUESTED INFORMATION TO [phone].
--- NOTE | 2016-10-11 10:21 | NUR ---
ERICA CALLED [facility] [place] AT [phone], LEFT MESSAGE FOR VERITO REGARDING POSSIBLE PLACEMENT.
--- NOTE | 2016-10-11 10:24 | NUR ---
CM CALLED [facility] AT [phone] AND LEFT VOICE MESSAGE FOR SW/ADMISSIONS DEPARTMENT REGARDING POSSIBLE PLACEMENT.
--- NOTE | 2016-10-11 10:40 | NUR ---
ERICA SPOKE WITH BRY AT [facility] AT [phone] REGARDING POSSIBLE PLACEMENT. FAXED REQUESTED INFORMATION TO [phone].
--- NOTE | 2016-10-11 11:37 | NUR ---
CM I HAVE SPOKE WITH DAUGHTER, HENRI REGARDING ACCEPTANCE INTO IRU. I HAVE TRIED A COUPLE TIMES TO NOTIFY PATIENT, BUT SHE HAS BEEN SLEEPING. WILL FOLLOW.
--- NOTE | 2016-10-11 13:31 | NUR ---
CM [facility] [place] CALLED BACK, I DID INFORM THEM THAT PATIENT HAS BEEN ADMITTED FOR IRU BUT TO KEEP FILE OPEN FOR POSSIBLE LATER PLACEMENT.
[2016-10-11] MEDS ORDERED: INSU10VI3 SQ (13:43)
[2016-10-11] MEDS ORDERED: ACET-2321 PO (13:43)
[2016-10-11] MEDS ORDERED: SENN-152 PO (13:43)
--- NOTE | 2016-10-11 13:53 | WOUNDPN ---
Nurse to Nurse Wound Consult Nurse to Nurse consult, wound care: right of coccyx on buttock, partial thickness area of concern observed, 100% gran pink with macerated periulcer. Wound care recommends calmoseptine PRN to macerated skin and cover with mepilex for protection. Lita LINN present at time of evaluation and verbalizes understanding recommendations. LUKAS KIDD RN Oct 11, 2016 13:52
--- NOTE | 2016-10-11 14:27 | NUR ---
status Pt A/O x3, has quite a few times where we need to prompt her what to so. V/S stable on RA. Low appetite, needing to remind her to eat something at every meal. Pt ambulated well with PT/OT and up to chair. Pt denies pain until we reposition her in bed, sitting in chair did not seem to bother her. Urine output good for shift, having soft BM's throughout day.
--- NOTE | 2016-10-11 14:43 | NUR ---
[facility] CALLED AND THEY COULD ACCEPT HER, CAN EVEN AFTER IRU STAY.
--- NOTE | 2016-10-11 15:42 | NUR ---
DC Pt DC'd to IRU at 1530, taken over via WC. IV site DC, cath tip intact. Report and DC instructions given to Corinne.
--- NOTE | 2016-10-11 22:40 | DSPDOC ---
General Date Date DATE: 10/11/16 TIME: 22:28 Attending Physician Maryann Zapata MD Admitting Physician Maryann Zapata MD Consulting Physician Admitting Diagnosis right pelvis fracture, acute kidney injury Discharge Diagnosis 1. Right superior/inferior pubic rami fractures 2. Ambulatory dysfunction with falls 3. Macrocytic anemia 4. Chronic kidney disease, stage IV 5. Diabetes mellitus, uncontrolled, with nephropathy 6. Hypertension 7. Constipation 8. Dementia Laboratory Laboratory Tests Test 10/10/16 11:06 10/10/16 15:03 10/10/16 16:26 10/10/16 17:04 Glucometer 393mg/dL (65-110) 406mg/dL (65-110) 266mg/dL (65-110) Magnesium Level 2.3MG/DL (1.6-2.3) Test 10/10/16 19:52 10/11/16 04:37 10/11/16 06:10 10/11/16 06:34 Glucometer 231mg/dL (65-110) 67mg/dL (65-110) 86mg/dL (65-110) White Blood Count 4.8T/MM3 (4.5-11.0) Red Blood Count 2.24M/MM3 (4.00-5.20) Hemoglobin 6.7GM/DL (12-16) Hematocrit 22.7% (36-46) Mean Corpuscular Volume 101.3UM3 (80-100) Mean Corpuscular Hemoglobin 29.9UUG (26-34) Mean Corpuscular Hemoglobin Concent 29.5GM/DL (31-37) RDW Standard Deviation 44.2FL (36.9-50.2) Platelet Count 269T/MM3 (130-400) Mean Platelet Volume 10.3UM3 (9.4-12.4) Turbidity < 20 (0-20) Sodium Level 146MEQ/L (134-144) Potassium Level 4.1MEQ/L (3.6-5) Chloride Level 110MEQ/L (98-107) Carbon Dioxide Level 27MEQ/L (22-30) Anion Gap 9MEQ/L (5-15) Blood Urea Nitrogen 65.0MG/DL (7-17) Creatinine 2.0MG/DL (0.7-1.2) Glomerular Filtration Rate Calc 24 BUN/Creatinine Ratio 33RATIO (6-26) Glucose Level 57MG/DL (65-110) Calculated Osmolality 298MOSM/KG (261-280) Calcium Level 8.8MG/DL (8.4-10.2) Phosphorus Level 3.4MG/DL (2.5-4.5) Icterus Index < 2 (0-7) Albumin 3.0G/DL (3.5-5.0) Thyroid Stimulating Hormone (TSH) 1.81MIU/L (0.47-4.68) Chemistry Specimen Hemolysis < 15 (0-25) Test 10/11/16 07:49 10/11/16 10:16 10/11/16 14:26 Hemoglobin 8.1GM/DL (12-16) Hematocrit 27.0% (36-46) Glucometer 179mg/dL (65-110) 122mg/dL (65-110) Vitamin B-12 level and folic acid pending at discharge Radiology X-rays of the pelvis and sacrum/coccyx demonstrated close posttraumatic mildly displaced fractures of the right superior and inferior pubic rami; no posterior ring pathology evident. History of Present Illness This is an 80-year-old female who lives with her daughter in [place]. The patient apparently fell on 09/27/16. The patient was evaluated on 09/29/16 at [facility]. The patient was diagnosed with a right pelvis fracture. The patient has chronic pain to this right hip status post a hip fracture in the past. The patient was discharged to home with oral pain medication. The patient does have a history of constipation with difficulty bowel movements recently. The patient continues to do poorly at home. Decreasing energy. The daughter is currently unable to assist with her activities of living. The patient was brought to the emergency department for evaluation. The patient does have a history of chronic kidney disease stage IV. Workup in the emergency department demonstrates worsening renal function. At this time the patient is to be admitted to the hospital for assessment of injury to right pelvis. Additionally the patient will have her renal function further addressed. This was a non-syncopal fall. Hospital Course Patient was hospitalized due to ambulatory dysfunction and inability to ambulate safely. She was seen by PT/OT. Repeat films of the pelvis confirmed pubic rami fractures.. Patient was evaluated for rehabilitation and was accepted for transfer to the IRU on 10/11 to continue strengthening in that setting. Renal function appeared to be at baseline and blood sugars were erratic. Her daughter indicated interest in conversion to a regimen that would only required 2 shots of insulin daily instead of Humalog which she feels is in adequately being dose now as she is not home to provide a dose at lunchtime. Subsequently she was converted to 70/30 NovoLog mix on a trial basis and will continue to require close monitoring of blood sugars to permit dose adjustment. X-rays also demonstrated significant constipation and bowel regimen was initiated with several bowel movements during hospital stay. The patient's blood pressure was moderately elevated throughout the hospital stay, amlodipine was continued but dose adjustment will likely be needed. Lasix was held as was oral diabetes agents due to renal failure. On the day of discharge the patient was drowsy but indicated that she was not having much pain other than right around her tailbone. She denied dyspnea. On examination the patient responded to questions but then fell back to sleep. Respirations were nonlabored and airflow good. Cardiac rhythm was regular and abdomen soft. There is trace bilateral lower extremity edema. Patient was felt stable for transfer to rehabilitation on 10/11 to continue gait training and strengthening. She'll continue to require close monitoring of blood sugars given modification in her diabetes regimen and B-12 level will require follow-up as its pending at discharge. Problems: (1) Pubic ramus fracture Status: Acute Assessment & Plan: Inferior/superior pubic rami fractures (2) Falls Assessment & Plan: Multiple falls per history (3) Macrocytic anemia Assessment & Plan: MCV 96 in April (4) CKD (chronic kidney disease) stage 4, GFR 15-29 ml/min Status: Chronic (5) DM2 (diabetes mellitus, type 2) Status: Chronic Assessment & Plan: Probable diabetic nephropathy; A1c 8.8 on 09/08/16 (6) HTN (hypertension) Status: Chronic (7) Osteoporosis Status: Chronic Code Status Do Not Resuscitate Home Meds Active Scripts Insuln Asp Prt/Insulin Aspart (Novolog Mix 70-30 Vial) 100 Unit/Ml Inj, 8 UNIT SQ 2555,2979 for DM for 30 Days Prov:MARYANN ZAPATA MD 10/11/16 Sennosides/Docusate Sodium (Senna Plus Tablet) 1 Tab Tablet, 2 TAB PO BID for constipation, #60 TAB Prov:MARYANN ZAPATA MD 10/11/16 Acetaminophen (Tylenol) 325 Mg Tablet, 325-650 MG PO Q5H Y for DISCOMFORT for 30 Days, TAB Prov:MARYANN ZAPATA MD 10/11/16 Reported Medications [Liquid Iron + Vit C] No Conflict Check, 1 TSP PO DAILY 10/09/16 Amlodipine Besylate (Amlodipine Besylate) 5 Mg Tablet, 5 MG PO DAILY, #30 10/09/16 Hydrocodone/Apap ([place] 5-325 Tablet) 5-325 Tablet, 1 TAB PO PRN Y for PAIN, #12 10/09/16 Discontinued Reported Medications Glimepiride (Glimepiride) 2 Mg Tablet, 2 MG PO DAILY, #30 10/09/16 Insulin NPL/Insulin Lispro (Humalog Mix 50-50 Kwikpen) 100 Unit/1 Ml Insuln.pen , 14 UNIT SQ PM, #15 10/09/16 Insulin Lispro (Humalog) 100 Unit/1 Ml Insuln.pen, 4 UNIT SQ DAILY, #15 10/09/16 Furosemide (Lasix) 20 Mg Tablet, 20 MG PO DAILY 07/16/11 Potassium Chloride (Potassium Chloride) 10 Meq Tab.prt.sr, 10 MEQ PO DAILY 07/16/11 Insulin Npl/Insulin Lispro (Humalog Mix 50/50 Vial) 10 Ml Vial, 12 - 13 DAILY NOON 07/16/11 Ferrous Sulfate (Slow Fe) 160 Mg Tablet.sa, 2 TAB PO DAILY 07/16/11 Amlodipine (Norvasc) 2.5 Mg Tablet, 2.5 MG PO DAILY 07/16/11 Metformin Hcl (Metformin Hcl Er) 500 Mg Tab.sr.24h, 500 MG PO DAILY PM 07/16/11 Glimepiride (Glimepiride) 4 Mg Tablet, 4 MG PO BID 07/16/11 Face to Face Encounter I met with patient on the day of dismissal and discussed follow up appointments , medications, and safety plan. Discharge Disposition IRU Documentation Requirements Anemia Anemia Acuity: Chronic (macrocytic Zuhair studies pending at discharge) Diabetes Diabetes Type: Type 2 Diabetes Is Diabetes Contolled?: Uncontolled Related to Diabetes: Not related to MARYANN ZAPATA MD Oct 11, 2016 22:31
[2016-10-12 02:39] LABS: FOLATE > 20.0 NG/ML (2.76-20); VITAMIN B12 - BATCH 833 PG/ML (239-931)
== END 2016-10-11 15:30 ==
LOC: ED 22:07 → EDHOLD 23:31 → INTOOBSV 23:31 → MED 10-10 00:30
PROVIDERS: ADMIT Internal Medicine; ATTEND Internal Medicine
DX: S32.591A Other specified fracture of right pubis, initial encounter for closed fracture (principal); N17.9 Acute kidney failure, unspecified; I12.9 Hypertensive chronic kidney disease with stage 1 through stage 4 chronic kidney disease, or unspecified chronic kidney disease; N18.4 Chronic kidney disease, stage 4 (severe); E11.22 Type 2 diabetes mellitus with diabetic chronic kidney disease; E11.65 Type 2 diabetes mellitus with hyperglycemia; Z79.899 Other long term (current) drug therapy; E78.00 Pure hypercholesterolemia, unspecified; M81.0 Age-related osteoporosis without current pathological fracture; D53.9 Nutritional anemia, unspecified; K59.00 Constipation, unspecified; F03.90 Unspecified dementia, unspecified severity, without behavioral disturbance, psychotic disturbance, mood disturbance, and anxiety; Z79.4 Long term (current) use of insulin; Z79.84 Long term (current) use of oral hypoglycemic drugs; Z96.641 Presence of right artificial hip joint; R29.6 Repeated falls; W19.XXXA Unspecified fall, initial encounter; Y93.89 Activity, other specified; Y92.89 Other specified places as the place of occurrence of the external cause; Y99.8 Other external cause status
CPT/HCPCS: 36415; 72190; 72220; 80048; 80053; 80069; 81001; 82607; 82746; 82948; 83735; 84443; 85014; 85018; 85025; 85027; 86850; 86900; 86901; 96361; 96372; 96374; 97116; 97163; 97166; 97535; 99284; A6209; A9270; C9113; G0378; G8978; G8979; G8980; G8987; G8988; G8989; J7030; 36000; 99218

== ENCOUNTER 2016-10-11 15:35 | Inpatient (IN) | payer MEDICARE, MEDICAID ==
[~2016-10-11] VITALS: Ht 170.2 cm; Wt 50.6 kg
[~2016-10-11 15:35] MED LIST changes: +ACET-2321 PO; -AMLO2.5T33 PO; +AMLO5TAB2 PO; -FERR160T22 PO; +GLIM2TAB3 PO; -GLIM4TAB31 PO; +HYDR-3989 PO; +INSU100I13 SQ; +INSU100I14 SQ; -INSU10VI2; +INSU10VI3 SQ; +IRON PO; -METF-186 PO; -POTA10TA83 PO; +SENN-152 PO; +VIT C PO
--- OUTSIDE RECORDS SUMMARY | 2016-10-11 15:47 | XMS REPORT | Continuity of Care Document ---
Author Author [facility] Organization [facility] Address Unknown Phone Unavailable Allergies Active Description [...] Status Pt. Type Provider Facility Loc./Unit Complaint [id number] 06/17/2012 22:11:00 2012 16:30:00 DIS Inpatient Ceferino Cardona DO [facility] [address]
--- OUTSIDE RECORDS SUMMARY | 2016-10-11 15:47 | XMS REPORT | Continuity of Care Document ---
Author Author [facility] Organization [facility] Address Unknown Phone Unavailable Support Name Relationship Address Phone GARRET ZALDIVAR MD Caregiver [address] [place] [address] Unavailable GARRET ZALDIVAR MD Caregiver [address] [place] [address] Unavailable ELISA GANNON DO Caregiver [address] [place] [address] Unavailable WOODY GUERRERO Caregiver [address] [place] [address] Unavailable KATHYHENRI Next Of Kin [address] [place] [address] Insurance Providers Guarantor Melvi Chavez Address [address] [place] [address] Email DENIED 16 Payer Medicaid Policy Number [id number] Subscriber's Name Melvi Chavez Relationship 18 Self Effective Date 15 Expiration Date 16 Payer Medicare Policy Number [id number] Subscriber's Name Melvi Chavez Relationship 18 Self Effective Date 98 Advance Directives Directive Response Recorded Date/Time Advanced Directives Type None 10/09/16 10:10pm Dr Salvador Resuscitation Status Do Not Resuscitate 10/10/16 4:00pm DPOA for Healthcare Only Y HENRI CHAVEZ, DAUGHTER 10/10/16 2:21am Living Will No 10/10/16 12:37am Advance Directive Consult Information Given 10/10/16 12:35pm Problems Active Problems Medical Problem Onset Date Status CKD (chronic kidney disease) stage 4, GFR 15-29 ml/min Unknown Chronic DM2 (diabetes mellitus, type 2) Unknown Chronic Falls Unknown HTN (hypertension) Unknown Chronic Hyponatremia Unknown Chronic Iron deficiency anemia Unknown Chronic Macrocytic anemia Unknown Osteoporosis Unknown Chronic Pubic ramus fracture Unknown Acute Past Problems Medical Problem Onset Date Anemia Unknown Pelvic fracture Unknown Renal failure Unknown Medications Current Home Medications Medication Dose Units Route Directions Days Qty Instructions Start Date Acetaminophen (Tylenol) 325 Mg Tablet 325-650 Mg Oral Every 5 Hours as needed for Discomfort 30 Days 10/11/16 Acetaminophen/Hydrocodone Bitart ([place] 5-325 Tablet) 5-325 Tablet 1 Tab Oral As Needed as needed for Pain 12 10/09/16 Amlodipine Besylate 5 Mg Tablet 5 Mg Oral Daily 30 10/09/16 Insuln Asp Prt/Insulin Aspart (Novolog Mix 70-30 Vial) 100 Unit/Ml Inj 8 Unit Sub-Q Take Today At 7:45AM & 5:15PM for Dm 30 Days 10/11/16 Liquid Iron + Vit C 1 Tsp Oral Daily 10/09/16 Sennosides/Docusate Sodium (Senna Plus Tablet) 1 Tab Tablet 2 Tab Oral Twice A Day for Constipation 60 Tablet 10/11/16 Past Home Medications Medication Directions Ordered Status Amlodipine Besylate (Norvasc) 2.5 Mg Tablet, 2.5 Mg Oral Daily 07/16/11 Discontinued Ferrous Sulfate (Slow Fe) 160 Mg Tablet.sa, 2 Tab Oral Daily 07/16/11 Discontinued Furosemide (Lasix) 20 Mg Tablet, 20 Mg Oral Daily 07/16/11 Discontinued Glimepiride 2 Mg Tablet, 2 Mg Oral Daily 10/09/16 Discontinued Glimepiride 4 Mg Tablet, 4 Mg Oral Twice A Day 07/16/11 Discontinued Insulin Lispro (Humalog) 100 Unit/1 Ml Insuln.pen, 4 Unit Sub-Q Daily Discontinued Insulin Npl/Insulin Lispro (Humalog Mix 50-50 Kwikpen) 100 Unit/1 Ml Insuln.pen , 14 Unit Sub-Q Every Evening 10/09/16 Discontinued Insulin Npl/Insulin Lispro (Humalog Mix 50/50 Vial) 10 Ml Vial, 12 - 13 Daily Noon 07/16/11 Discontinued Metformin Hcl (Metformin Hcl Er) 500 Mg Tab.sr.24h, 500 Mg Oral Daily Pm 15/06 Discontinued Metformin Hcl 500 Mg Tablet, 500 Mg Oral 07/16/11 Discontinued Potassium Chloride 10 Meq Tab.prt.sr, 10 Meq Oral Daily 07/16/11 Discontinued Social History Social History Problem Response Recorded Date/Time Onset Date Status Reason for Hospitalization pelvic fracture 10/11/2016 2:19pm Not Applicable Not Applicable Hx Substance Use No 10/09/2016 10:38pm Not Applicable Not Applicable Hx Alcohol Use No 10/09/2016 10:38pm Not Applicable Not Applicable Query Response Start Date Stop Date Smoking Status Never smoker Hospital Discharge Instructions Instructions: Care Instructions: I was in the hospital because (patient own words): "WEAKNESS" Discharge Diet: diabetic Discharge Activity: Per PT/OT Follow Up Appointments: Not applicable of present Pending Lab / Results: Will be notified Patient Instructions: Insulin being modified to try to improve control, test to determine why you're anemic are pending-will be notified in rehabilitation what the results are Expected Signs/Symptoms: Pain with ambulation Notify Physician If: Not applicable of present During Business Hours:: Not applicable at present After Business Hours:: Not applicable at present Pain Management/Treatment: See medication list Wound/Incision Care: Not applicable Durable Medical Equipment: Walker with activities Condition at time of discharge: Fair Plan of Care Discharge Date 10/11/16 3:30pm Disposition 62 TO REHAB UNIT/FACILITY Instructions/Education Provided Pelvic Fracture (DC) Prescriptions See Medication Section Care Plan and Goals See Discharge Instructions Section Functional Status Query Response Date Recorded Mobility Status Transfer w/assist October 10, 2016 4:00am Assistive Devices Standard Walker October 10, 2016 4:00am Activity Limitations Weakness Fatigue Pain October 10, 2016 4:00am Feeding Ability Assist October 10, 2016 4:00am Toileting Ability Assist October 10, 2016 4:00am Grooming Ability Assist October 10, 2016 4:00am Dressing Ability Assist October 10, 2016 4:00am Driving Ability Dependent October 10, 2016 4:00am Housework Ability Dependent October 10, 2016 4:00am Meal Preparation Ability Assist October 10, 2016 4:00am Stair Climbing Ability Dependent October 10, 2016 4:00am Ability to complete ADL's impeded by Change in Behavior Impaired Mobility Change in Cognition Home Env. Factor October 10, 2016 4:00am Cognitive/Perceptual Impairments None October 10, 2016 4:00am Allergies, Adverse Reactions, Alerts Allergen Type Severity Reaction Status Last Updated Penicillin Allergy Unknown Active 07/16/11 Promethazine Adverse Reaction Severe MENTAL STATUS CHANGE Active 07/16/11 Immunizations Query Response on File Recorded Date/Time Hx Influenza Vaccination No 10/10/16 12:41am Hx Pneumococcal Vaccination No 10/10/16 12:41am Hx Influenza Vaccination No 10/10/16 12:41am Vital Signs Acute Vital Signs Vital Response Date/Time Temperature (Fahrenheit) 97.4 deg F (96.8 - 99.1) 10/11/2016 7:30am Temperature (Calculated Celsius) 36.25858 degrees C (36.0 - 37.3) 10/11/2016 7:30am Pulse Rate (adult) 83 bpm (60 - 100) 10/11/2016 7:30am Respiratory Rate 18 breaths/min (10 - 20) 10/11/2016 7:30am O2 Sat by Pulse Oximetry 94 % (90 - 100) 10/11/2016 7:30am Oxygen Delivery Method Room Air 10/11/2016 7:30am Blood Pressure 185/69 mm Hg 10/11/2016 8:01am Blood Pressure Source Automatic Cuff 10/11/2016 8:01am Height (Feet) 5 feet 10/10/2016 2:21am Height (Inches) 6.00 inches 10/10/2016 2:21am Weight (Kilograms) 50.000 kg 10/11/2016 8:04am Body Mass Index (BMI) 17.2 10/10/2016 12:35am Results Laboratory Results Test Name Result Units Flags Reference Collection Date/Time Result Date/ Time Comments White Blood Count 4.8 T/MM3 4.5-11.0 10/11/2016 4:37am 10/11/2016 6: 13am Red Blood Count 2.24 M/MM3 L 4.00-5.20 10/11/2016 4:37am 10/11/2016 6: 13am Hemoglobin 8.1 GM/DL D L 12-16 10/11/2016 7:49am 10/11/2016 8:08am Hematocrit 27.0 % D L 36-46 10/11/2016 7:49am 10/11/2016 8:08am Mean Corpuscular Volume 101.3 UM3 H 80-100 10/11/2016 4:37am 10/11/2016 6:13am Mean Corpuscular Hemoglobin 29.9 UUG 26-34 10/11/2016 4:37am 2016 6:13am Mean Corpuscular Hemoglobin Concent 29.5 GM/DL L 31-37 10/11/2016 4:37am 10/11/2016 6:13am RDW Standard Deviation 44.2 FL 36.9-50.2 10/11/2016 4:37am 10/11/2016 6 :13am Platelet Count 269 T/MM3 130-400 10/11/2016 4:37am 10/11/2016 6:13am Mean Platelet Volume 10.3 UM3 9.4-12.4 10/11/2016 4:37am 10/11/2016 6: 13am Neutrophils (%) (Auto) 60.2 % 33-66 10/10/2016 4:32am 10/10/2016 4: 59am Lymphocytes (%) (Auto) 26.5 % 23-45 10/10/2016 4:32am 10/10/2016 4: 59am Monocytes (%) (Auto) 7.4 % 0-9.0 10/10/2016 4:32am 10/10/2016 4:59am Eosinophils (%) (Auto) 5.3 % H 0-4 10/10/2016 4:32am 10/10/2016 4:59am Basophils (%) (Auto) 0.4 % 0-2 10/10/2016 4:32am 10/10/2016 4:59am Immature Granulocyte % (Auto) 0.2 % 0.0-0.5 10/10/2016 4:32am 2016 4:59am Absolute Neutrophils (auto) 3.2 T/MM3 1.8-7.7 10/10/2016 4:32am 2016 4:59am Absolute Lymphocytes (auto) 1.4 T/MM3 1-4.8 10/10/2016 4:32am 2016 4:59am Absolute Monocytes (auto) 0.4 T/MM3 0-0.8 10/10/2016 4:32am 10/10/2016 4:59am Absolute Eosinophils (auto) 0.3 T/MM3 0-0.5 10/10/2016 4:32am 2016 4:59am Absolute Basophils (auto) 0.0 T/MM3 0-0.2 10/10/2016 4:32am 10/10/2016 4:59am Absolute Immature Granulocyte (auto 0.01 T/MM3 0.00-0.03 10/10/2016 4: 32am 10/10/2016 4:59am Icterus Index < 2 0-7 10/11/2016 4:37am 10/11/2016 5:20am Chemistry Specimen Hemolysis < 15 0-25 10/11/2016 4:37am 10/11/2016 5 :20am 0-25: Specimen Exhibited No Hemolysis. Turbidity < 20 0-20 10/11/2016 4:37am 10/11/2016 5:20am Sodium Level 146 MEQ/L H 134-144 10/11/2016 4:37am 10/11/2016 5:27am Potassium Level 4.1 MEQ/L 3.6-5 10/11/2016 4:37am 10/11/2016 5:27am Chloride Level 110 MEQ/L D H 98-107 10/11/2016 4:37am 10/11/2016 6:16am Carbon Dioxide Level 27 MEQ/L 22-30 10/11/2016 4:37am 10/11/2016 5: 27am Anion Gap 9 MEQ/L 5-15 10/11/2016 4:37am 10/11/2016 5:27am Blood Urea Nitrogen 65.0 MG/DL *H 7-17 10/11/2016 4:37am 10/11/2016 6: 16am Creatinine 2.0 MG/DL D H 0.7-1.2 10/11/2016 4:37am 10/11/2016 6:16am BUN/Creatinine Ratio 33 RATIO H 6-10/11/2016 4:37am 10/11/2016 5: 27am Glomerular Filtration Rate Calc 24 10/11/2016 4:37am 10/11/2016 5: 27am Glucose Level 57 MG/DL L 65-110 10/11/2016 4:37am 10/11/2016 5:27am Calculated Osmolality 298 MOSM/KG H 261-280 10/11/2016 4:37am 2016 5:27am Calcium Level 8.8 MG/DL 8.4-10.2 10/11/2016 4:37am 10/11/2016 5:27am Phosphorus Level 3.4 MG/DL 2.5-4.5 10/11/2016 4:37am 10/11/2016 5:27am Total Bilirubin 0.80 MG/DL 0.20-1.30 10/09/2016 10:49pm 10/09/2016 11: 06pm Alkaline Phosphatase 117 U/L 38-126 10/09/2016 10:49pm 10/09/2016 11: 06pm Total Protein 6.7 G/DL 6.3-8.2 10/09/2016 10:49pm 10/09/2016 11:06pm Albumin 3.0 G/DL L 3.5-5.0 10/11/2016 4:37am 10/11/2016 5:27am Globulin 2.9 G/DL 2.4-3.6 10/09/2016 10:49pm 10/09/2016 11:06pm Albumin/Globulin Ratio 1.3 RATIO 1.1-2.2 10/09/2016 10:49pm 10/09/2016 11:06pm Aspartate Amino Transf (AST/SGOT) 31 U/L 14-36 10/09/2016 10:49pm 10/09 11:06pm Alanine Aminotransferase (ALT/SGPT) 29 U/L 9-52 10/09/2016 10:49pm 11:06pm Magnesium Level 2.3 MG/DL 1.6-2.3 10/10/2016 4:26pm 10/10/2016 5:00pm Thyroid Stimulating Hormone (TSH) 1.72 MIU/L 0.47-4.68 10/10/2016 4: 32am 10/10/2016 5:39am Thyroid Stimulating Hormone (TSH) 1.81 MIU/L 0.47-4.68 10/11/2016 4: 37am 10/11/2016 6:10am Urine Collection Type CLEANCATCH-MIDSTREAM 10/10/2016 12:08am 10/10 12:35am Urine Color YELLOW YELLOW 10/10/2016 12:08am 10/10/2016 12:35am Urine Turbidity SL CLOUDY CLEAR 10/10/2016 12:08am 10/10/2016 12: 35am Urine Specific [place] 1.015 1.015-1.025 10/10/2016 12:08am 2016 12:35am Urine pH 5.0 5.0-8.0 10/10/2016 12:08am 10/10/2016 12:35am Urine Leukocyte Esterase NEGATIVE NEGATIVE 10/10/2016 12:08am 2016 12:35am Urine Nitrite NEGATIVE NEGATIVE 10/10/2016 12:08am 10/10/2016 12: 35am Urine Protein 1+ A NEGATIVE 10/10/2016 12:08am 10/10/2016 12:35am Urine Glucose (UA) 1+ A NEGATIVE 10/10/2016 12:08am 10/10/2016 12: 35am Urine Ketones TRACE A NEGATIVE 10/10/2016 12:08am 10/10/2016 12:35am Urine Urobilinogen 0.2 EU/DL NORMAL 10/10/2016 12:08am 10/10/2016 12: 35am Urine Bilirubin NEGATIVE NEGATIVE 10/10/2016 12:08am 10/10/2016 12: 35am Urine Blood TRACE-INTACT A NEGATIVE 10/10/2016 12:08am 10/10/2016 12: 35am Urine WBC NONE SEEN /HPF 0-5 10/10/2016 12:08am 10/10/2016 12:53am Urine RBC NONE SEEN /HPF 0-3 10/10/2016 12:08am 10/10/2016 12:53am Urine Bacteria 4+ H NEGATIVE 10/10/2016 12:08am 10/10/2016 12:53am Urine Culture Indicated CULT NOT INDICATED 10/10/2016 12:08am 10/10 12:53am Glucometer 122 mg/dL H 65-110 10/11/2016 2:26pm 10/11/2016 2:30pm Name: MELVI CHAVEZ Unit #: [id number] : 1935 Sex: F Admit Date: 10/09/16 Loc / Svc: MED Discharge Date: DIAGNOSTIC IMAGING REPORT Report #: [id number] [facility] [place] Indication: ITS.REASON: fall, tailbone pain PROCEDURE: SACRUM COCCYX: Encounter: Initial Comparison: Pelvis radiographs from the same time Findings: Right superior and inferior pubic ramus fractures are again noted. Severe bony demineralization limiting detection of nondisplaced fractures. No displaced sacrococcygeal fracture seen. Impression: As above. . Procedures No known history of procedures. Encounters Encounter Location Arrival/Admit Date Discharge/Depart Date Attending Provider Discharged Inpatient (obs) [facility] 10/09/16 11:31pm 10/11/16 3 :30pm GARRET ZALDIVAR MD
[2016-10-11 15:49] VITALS: BP 172/72; PULSE 76; RESP 20; TEMP 98.7; O2SAT 95; Ht 170.2 cm; Wt 50.6 kg
--- NOTE | 2016-10-11 16:32 | NUR ---
Admission Patient admitted to IRU from [facility] medical [place] into room 179. Daughter present with patient on admission and signed paperwork at patient request. Patient alert and oriented to self, place, and month and year. Daughter brought clothing in for patient. Patient oriented to room and routine.
[2016-10-11] MEDS ORDERED: PRN ORDERS MC (19:15)
[2016-10-11 20:28] VITALS: PULSE 80; RESP 16; O2SAT 98
[2016-10-11] MEDS: SENNA + DOCUSATE TAB PO SCH (21:00)
[2016-10-11] MEDS: DOCUSATE SODIUM 100 MG CAPSULE PO SCH (21:00)
[2016-10-11] MEDS ORDERED: AMLODIPINE 5 MG TABLET PO ONE (22:00)
[2016-10-11] MEDS: INSULIN ASPART 100 UNIT/ML SQ PRN (22:24)
[2016-10-11] MEDS: INSULIN NPH SQ SCH (22:25)
[2016-10-11] MEDS: ASPART SQ SCH (22:25)
[2016-10-11] MEDS: HYDROCODONE/APAP 5 mg/325 mg TABLET PO PRN (22:25)
[2016-10-11 22:53] VITALS: BP 191/89; PULSE 77; RESP 20; TEMP 98.2; O2SAT 98
[2016-10-11 23:42] VITALS: BP 151/71
[2016-10-12 05:17] LABS: BASOPHILS % (AUTO) 0.7 % (0-2); EOSINOPHILS # (AUTO) 0.4 T/MM3 (0-0.5); EOSINOPHILS % (AUTO) 7.9 % (0-4); HCT - HEMATOCRIT 21.5 % (36-46); HGB - HEMOGLOBIN 6.5 GM/DL (12-16); LYMPHOCYTES # (AUTO) 0.8 T/MM3 (1-4.8); LYMPHOCYTES % (AUTO) 18.3 % (23-45); MEAN CORPUSCULAR HGB 31.3 UUG (26-34); MEAN CORPUSCULAR HGB CONC(MCHC 30.2 GM/DL (31-37); MEAN CORPUSCULAR VOLUME 103.4 UM3 (80-100); MEAN PLATELET VOLUME 10.1 UM3 (9.4-12.4); MONOCYTES # (AUTO) 0.5 T/MM3 (0-0.8); MONOCYTES % (AUTO) 10.9 % (0-9.0); NEUTROPHILS #(AUTO)-ABSOLUTE 2.8 T/MM3 (1.8-7.7); NEUTROPHILS % (AUTO) 62.2 % (33-66); RED BLOOD COUNT 2.08 M/MM3 (4.00-5.20); WBC - WHITE BLOOD COUNT 4.4 T/MM3 (4.5-11.0)
[2016-10-12 05:37] LABS: ANION GAP 9 MEQ/L (5-15); BUN/CREATININE RATIO 28 RATIO (6-26); CALCIUM 8.7 MG/DL (8.4-10.2); CHLORIDE 109 MEQ/L (98-107); CO2 - CARBON DIOXIDE 29 MEQ/L (22-30); CREATININE 1.9 MG/DL (0.7-1.2); GLOMERULAR FILTRATION RATE 25; GLUCOSE 108 MG/DL (65-110); POTASSIUM 4.2 MEQ/L (3.6-5); SODIUM 147 MEQ/L (134-144)
--- NOTE | 2016-10-12 07:00 | NUR ---
Summary Patient has been alert and oriented times three this shift. Daughter has been present in the evening. Patients blood sugar and blood pressure was elevated this evening and Tele-hospitalist contacted. He ordered sliding scale insulin and extra dose of Amlodipine for the evening and also oked giving missed evening Novalogg 70/20. Patient has been mostly continent of urine, but incontinent of bowel. She is very concerned about urinating on the way to the restroom and has asked if we can put something under her so she can urinate in bed. Compromised with her one time and brought bed side commode due to urgency, the rest of the time she ambulated with FWW and gait belt with steadying assist to toilet. She requires considerable assist to go from lying to sitting on the side of the bed and has pain with that movement. She reports pain is not bad when in bed. She did have pain medication at HS to manage her pelvis pain. When in bed, side rails are up times two, bed alarm on and call light within reach. Hgb low in the AM. Hospitalist notified.
[2016-10-12 07:29] LABS: BLOOD, URINE TRACE-LYSED (NEGATIVE); COLOR,URINE YELLOW (YELLOW); LEUKOCYTE ESTERASE ,URINE TRACE (NEGATIVE); NITRITE,URINE NEGATIVE (NEGATIVE); UROBILINOGEN,URINE 0.2 EU/DL (NORMAL)
[2016-10-12 07:42] LABS: RBC,URINE NONE SEEN /HPF (0-3)
[2016-10-12 07:43] LABS: BACTERIA,URINE 4+ (NEGATIVE)
[2016-10-12 08:00] VITALS: BP 160/72; PULSE 73; RESP 12; TEMP 96.2; O2SAT 99
[2016-10-12 08:09] LABS: HCT - HEMATOCRIT 27.7 % (36-46); HGB - HEMOGLOBIN 8.5 GM/DL (12-16)
[2016-10-12 08:25] LABS: ABSOLUTE RETICS # 0.0557 T/MM3 (0.0300-0.0900)
[2016-10-12] MEDS: AMLODIPINE 5 MG TABLET PO SCH (08:41)
[2016-10-12] MEDS: SENNA + DOCUSATE TAB PO SCH ×3 (08:41→20:56)
[2016-10-12] MEDS: DOCUSATE SODIUM 100 MG CAPSULE PO SCH ×3 (08:41→20:55)
[2016-10-12] MEDS: ASPART SQ SCH ×2 (08:42→17:53)
[2016-10-12] MEDS: INSULIN NPH SQ SCH ×2 (08:42→17:53)
[2016-10-12 09:00] VITALS: PULSE 73; RESP 12
[2016-10-12] MEDS ORDERED: TSP PO SCH (09:00)
[2016-10-12] MEDS: INSULIN ASPART 100 UNIT/ML SQ PRN (12:40)
--- NOTE | 2016-10-12 13:34 | CONSPD ---
VERITO BLANCHARD SALES AND LEASING AGENT 10/12/16 1320: Consultation Info Date DATE: 10/12/16 TIME: 13:11 Date of Consultation: Oct 12, 2016 Attending Physician: BEATRIZ - Dr. Zelaya Hospitalist - Dr. Zapata Reason for Consultation: Anemia, CKD, DM2 HPI - Adult Date DATE: 10/12/16 TIME: 13:11 General Chief Complaint: pelvic fracture, fatigue, ambulatory dysfunction History of Present Illness Melvi Perez is seen in consultation from Dr. Zelaya for management of anemia, chronic kidney disease stage IV, type 2 diabetes, hypertension. She fell a couple weeks ago and was dx with right-sided pelvic fx and sent home. She was admitted to [facility] [place] on 10/10/16 because of weakness, fatigue, and inability to care for herself. She was has chronic kidney disease - BUN 88 and Creatinine of 2.6 and BUN/creatinine ratio of 34. She received IV hydration and Lasix was held. Her routine insulin was also held because of her decline in renal function. Hgb was 7.9 and she has a baseline of 9-10 in clinic records. 1. Her insulin was resumed, the decision was made to transition her to 70/30 NovoLog mix, because of desire to reduce frequency of injections. During her hospital course, her blood pressure was slightly elevated, and its possible amlodipine. Will need to be adjusted. On 10/11/16, she was medically stable to be discharged from acute care, and was admitted to IRU. She was seen while working with therapy. She states that both legs are still "a little sore" from her injury. She understands she is here to get stronger. She denies any chest pain or difficulty breathing, cough or congestion, fevers or chills, abdominal pain or GI complaints. She states she has noticed a little bit of bilateral ankle swelling since her injury. She states that she is thinking better and more clearly, and is not as tired. She reports that she is occasionally dizzy, especially with the change in position. She apologizes when I'll examine her mouth, and states that she intends to get her teeth fixed once she is healthy enough. While in rehabilitation she'll continue to require close monitoring of blood sugars because of the diabetic regimen modification. Past Medical History Past Medical History iron defeciency anemia; anemia of chronic disease DM2 HTN osteoporosis CKD stage IV hyponatremia Surgical History Patient's Surgical History: ERCP stone extraction common bile duct right hip pinning bilateral cataract extraction G tube placement and removal Current Medications Home Meds Active Scripts Insuln Asp Prt/Insulin Aspart (Novolog Mix 70-30 Vial) 100 Unit/Ml Inj, 8 UNIT SQ 0745,1715 for DM for 30 Days Prov:GARRET ZAPATA MD 10/11/16 Sennosides/Docusate Sodium (Senna Plus Tablet) 1 Tab Tablet, 2 TAB PO BID for constipation, #60 TAB Prov:GARRET ZAPATA MD 10/11/16 Acetaminophen (Tylenol) 325 Mg Tablet, 325-650 MG PO Q5H Y for DISCOMFORT for 30 Days, TAB Prov:GARRET ZAPATA MD 10/11/16 Reported Medications [Liquid Iron + Vit C] No Conflict Check, 1 TSP PO DAILY 10/09/16 Amlodipine Besylate (Amlodipine Besylate) 5 Mg Tablet, 5 MG PO DAILY, #30 10/09/16 Hydrocodone/Apap ([place] 5-325 Tablet) 5-325 Tablet, 1 TAB PO PRN Y for PAIN, #12 10/09/16 Discontinued Reported Medications Glimepiride (Glimepiride) 2 Mg Tablet, 2 MG PO DAILY, #30 10/09/16 Insulin NPL/Insulin Lispro (Humalog Mix 50-50 Kwikpen) 100 Unit/1 Ml Insuln.pen , 14 UNIT SQ PM, #15 10/09/16 Insulin Lispro (Humalog) 100 Unit/1 Ml Insuln.pen, 4 UNIT SQ DAILY, #15 10/09/16 Furosemide (Lasix) 20 Mg Tablet, 20 MG PO DAILY 07/16/11 Potassium Chloride (Potassium Chloride) 10 Meq Tab.prt.sr, 10 MEQ PO DAILY 07/16/11 Insulin Npl/Insulin Lispro (Humalog Mix 50/50 Vial) 10 Ml Vial, 12 - 13 DAILY NOON 07/16/11 Ferrous Sulfate (Slow Fe) 160 Mg Tablet.sa, 2 TAB PO DAILY 07/16/11 Amlodipine (Norvasc) 2.5 Mg Tablet, 2.5 MG PO DAILY 07/16/11 Metformin Hcl (Metformin Hcl Er) 500 Mg Tab.sr.24h, 500 MG PO DAILY PM 07/16/11 Glimepiride (Glimepiride) 4 Mg Tablet, 4 MG PO BID 07/16/11 Allergies: Coded Allergies: Penicillins (Verified Allergy, Unknown, 07/16/11) promethazine (Verified Adverse Reaction, Severe, MENTAL STATUS CHANGE, 15/06) Family History Family History: parents and siblings all of old age Social History Smoking Status: Never smoker Substance Use Type: does not use Alcohol Intake: none Marital Status: Housing: house Household Members: family Current Occupational Status: retired Advance Directives: Yes DPOA for Healthcare Only (Chloe Perez) Physical Exam General General Nourishment: well nourished, well developed Vital Signs Vital Signs Date Time Temp Pulse Resp B/P Pulse Ox O2 Delivery O2 Flow Rate FiO2 10/12/16 08:00 96.2 73 12 160/72 99 Room Air Height (Feet): 5 Height (Inches): 7.00 Eyes Brief: FOUND: PERRL, NOT FOUND: scleral icterus ENMT Brief: FOUND: mucosa moist, NOT FOUND: normal dentition Respiratory Brief: FOUND: clear all tiwari, equal bilaterally Respiratory Auscultation: FOUND: normal, NOT FOUND: rales, rhonchi, wheezes Cardiovascular Auscultation: FOUND: S1, S2, regular Peripheral Pulses: 2+: Dorasalis Pedis (L), Dorsalis Pedis (R), Posterior Tibial (L), Posterior Tibial (R), Radial (L), Radial (R) Edema: 0: Anasarca, Arm (L), Arm (R), Face, Leg (L), Leg (R) Abdomen Inspection: NOT FOUND: distention Auscultation: FOUND: normo active Lymphatic (brief) Lymphatic Brief: NOT FOUND: adenopathy Musculoskeletal (brief) Musculoskeletal Brief: NOT FOUND: deformity Integumentary (brief) Integumentary Brief: FOUND: dry, warm Integumentary General: FOUND: dry, warm Color: FOUND: pink Neurologic (brief) Neurological Brief: FOUND: cranial 2-12 intact (grossly) Psychiatric (brief) FOUND: alert, attentive, normal affect, oriented Laboratory Laboratory Tests Test 10/11/16 21:01 10/11/16 23:34 10/12/16 04:36 10/12/16 06:46 Glucometer 357mg/dL 300mg/dL 124mg/dL White Blood Count 4.4T/MM3 Red Blood Count 2.08M/MM3 Hemoglobin 6.5GM/DL Hematocrit 21.5% Mean Corpuscular Volume 103.4UM3 Mean Corpuscular Hemoglobin 31.3UUG Mean Corpuscular Hemoglobin Concent 30.2GM/DL RDW Standard Deviation 45.4FL Platelet Count 268T/MM3 Mean Platelet Volume 10.1UM3 Immature Granulocyte % (Auto) 0.0% Neutrophils (%) (Auto) 62.2% Lymphocytes (%) (Auto) 18.3% Monocytes (%) (Auto) 10.9% Eosinophils (%) (Auto) 7.9% Basophils (%) (Auto) 0.7% Absolute Immature Granulocyte (auto 0.00T/MM3 Absolute Neutrophils (auto) 2.8T/MM3 Absolute Lymphocytes (auto) 0.8T/MM3 Absolute Monocytes (auto) 0.5T/MM3 Absolute Eosinophils (auto) 0.4T/MM3 Absolute Basophils (auto) 0.0T/MM3 Absolute Reticulocyte Count 0.0557T/MM3 Percent Reticulocyte Count 2.0% Immature Reticulocyte Fraction 10.2% Reticulocyte Hgb Content (CHr) 33.0PG Turbidity < 20 Sodium Level 147MEQ/L Potassium Level 4.2MEQ/L Chloride Level 109MEQ/L Carbon Dioxide Level 29MEQ/L Anion Gap 9MEQ/L Blood Urea Nitrogen 53.0MG/DL Creatinine 1.9MG/DL Glomerular Filtration Rate Calc 25 BUN/Creatinine Ratio 28RATIO Glucose Level 108MG/DL Calculated Osmolality 297MOSM/KG Calcium Level 8.7MG/DL Icterus Index < 2 Chemistry Specimen Hemolysis < 15 Test 10/12/16 07:10 10/12/16 07:55 10/12/16 11:22 Urine Collection Type Cleancatch-midstream Urine Color Yellow Urine Turbidity Cloudy Urine pH 5.0 Urine Specific [place] 1.020 Urine Protein 2+ Urine Glucose (UA) 1+ Urine Ketones Negative Urine Blood Trace-lysed Urine Nitrite Negative Urine Bilirubin Negative Urine Urobilinogen 0.2EU/DL Urine Leukocyte Esterase Trace Urine RBC None seen/HPF Urine WBC 5-10/HPF Urine Bacteria 4+ Urine Culture Indicated Cult not indicated Hemoglobin 8.5GM/DL Hematocrit 27.7% Glucometer 166mg/dL Impression/Recommendation Problems: (1) Macrocytic anemia Status: Chronic Assessment & Plan: History of anemia of chronic disease and iron deficiency anemia. Baseline hemoglobin has been 9-10. (2) Falls (3) Pubic ramus fracture Status: Acute (4) DM2 (diabetes mellitus, type 2) Status: Chronic Qualifiers: Diabetes mellitus complication status: with kidney complications Diabetes mellitus complication detail: with chronic kidney disease Diabetes mellitus care home insulin use: with care home use Chronic kidney disease stage: stage 4 (severe) Qualified Codes: E11.22 - Type 2 diabetes mellitus with diabetic chronic kidney disease; N18.4 - Chronic kidney disease, stage 4 (severe ); Z79.4 - skilled nursing (current) use of insulin (5) HTN (hypertension) Status: Chronic (6) Hyponatremia Status: Chronic (7) Osteoporosis Status: Chronic Impression 81-year-old woman with pelvic fracture, ambulatory dysfunction, anemia, type 2 diabetes, hypertension, chronic kidney disease stage IV. Recommendation Type 2 diabetes: Home insulin regimen was adjusted. Upon admission to acute care. Likely we will send her out on NovoLog 70/30. Continue with close sugar monitoring, and adjust doses as necessary. She will need a new prescription for insulin at time of discharge. Hypertension: Blood pressure has been elevated since arrival. Continue to monitor over the next day or 2, and consider increasing Norvasc or adding a new agent. Monitor for pedal edema. She already has mild edema. Anemia: Chronic. Hemoglobin has been variable, yesterday and this morning was in the 6's. However, on recheck, both times it had improved to the 8 range. Recheck count was 2, vitamin B12 833, folate greater than 20, TSH 1.81. Stage IV chronic kidney disease. BUN and creatinine are improving. BUN 53 and creatinine 1.9. Sodium was elevated at 147 this morning. Encourage fluids. Recheck labs in a.m. Patient is reported to have some wounds on her buttocks and the wound clinic was consulted. Thank you for this consultation. GARRET ZAPATA MD 10/12/162031: Past Medical History Current Medications Home Meds Active Scripts Insuln Asp Prt/Insulin Aspart (Novolog Mix 70-30 Vial) 100 Unit/Ml Inj, 8 UNIT SQ 8727,1715 for DM for 30 Days Prov:GARRET ZAPATA MD 10/11/16 Sennosides/Docusate Sodium (Senna Plus Tablet) 1 Tab Tablet, 2 TAB PO BID for constipation, #60 TAB Prov:GARRET ZAPATA MD 10/11/16 Acetaminophen (Tylenol) 325 Mg Tablet, 325-650 MG PO Q5H Y for DISCOMFORT for 30 Days, TAB Prov:GARRET ZAPATA MD 10/11/16 Reported Medications [Liquid Iron + Vit C] No Conflict Check, 1 TSP PO DAILY 10/09/16 Amlodipine Besylate (Amlodipine Besylate) 5 Mg Tablet, 5 MG PO DAILY, #30 10/09/16 Hydrocodone/Apap ([place] 5-325 Tablet) 5-325 Tablet, 1 TAB PO PRN Y for PAIN, #12 10/09/16 Discontinued Reported Medications Glimepiride (Glimepiride) 2 Mg Tablet, 2 MG PO DAILY, #30 10/09/16 Insulin NPL/Insulin Lispro (Humalog Mix 50-50 Kwikpen) 100 Unit/1 Ml Insuln.pen , 14 UNIT SQ PM, #15 10/09/16 Insulin Lispro (Humalog) 100 Unit/1 Ml Insuln.pen, 4 UNIT SQ DAILY, #15 10/09/16 Furosemide (Lasix) 20 Mg Tablet, 20 MG PO DAILY 07/16/11 Potassium Chloride (Potassium Chloride) 10 Meq Tab.prt.sr, 10 MEQ PO DAILY 07/16/11 Insulin Npl/Insulin Lispro (Humalog Mix 50/50 Vial) 10 Ml Vial, 12 - 13 DAILY NOON 07/16/11 Ferrous Sulfate (Slow Fe) 160 Mg Tablet.sa, 2 TAB PO DAILY 07/16/11 Amlodipine (Norvasc) 2.5 Mg Tablet, 2.5 MG PO DAILY 07/16/11 Metformin Hcl (Metformin Hcl Er) 500 Mg Tab.sr.24h, 500 MG PO DAILY PM 07/16/11 Glimepiride (Glimepiride) 4 Mg Tablet, 4 MG PO BID 07/16/11 Allergies: Coded Allergies: Penicillins (Verified Allergy, Unknown, 07/16/11) promethazine (Verified Adverse Reaction, Severe, MENTAL STATUS CHANGE, 15/06) Impression/Recommendation Impression I have independently evaluated and examined this patient. I reviewed the chart, the patient's history, and the SALES AND LEASING AGENT's documented findings as above. We discussed and formulated the assessment and plan as above with additions as below: Mrs. Perez reports that she was able to ambulate today and that she feels she is making progress already. She had increased discomfort in her right leg after therapy but it's improved after resting in bed this evening. She denied any other concerns at this time. The patient is alert and speech is fluent. Cardiac rhythm is regular and anterior breath sounds are clear. Plantar flexion/dorsiflexion symmetric and strong. Results of B-12 noted, blood sugars significantly improved today on restricted diet. Continue NovoLog 70/30 and current 4 times a day blood sugar monitoring. Creatinine has improved from 2.6 on admission 10/09 to 1.9 currently. Monitor blood pressure, would not aggressively lower systolic below 150 or may impair renal perfusion. VERITO BLANCHARD APRN Oct 12, 2016 13:20 GARRET ZAPATA MD Oct 12, 2016 20:32
--- NOTE | 2016-10-12 14:27 | HPPDOC ---
HPI Date DATE: 10/12/16 TIME:08 General Chief Complaint: pelvic fracture, fatigue, ambulatory dysfunction History of Present Illness 81 yo female with right pelvic fracture and weakness, being admitted to IRU. She has a hx of chronic anemia, CKD(IV), DM type II and HTN. Since falling and fracturing her pelvis, she has had difficulty managing pain and losing strength. At this time, she is too weak to manage her own ADL's. She had stopped Insulin dur eto renal failure. Past Medical History Past Medical History iron defeciency anemia; anemia of chronic disease DM2 HTN osteoporosis CKD stage IV hyponatremia Surgical History Patient's Surgical History: ERCP stone extraction common bile duct right hip pinning bilateral cataract extraction G tube placement and removal Current Medications Home Meds Active Scripts Insuln Asp Prt/Insulin Aspart (Novolog Mix 70-30 Vial) 100 Unit/Ml Inj, 8 UNIT SQ 0745,1715 for DM for 30 Days Prov:GARRET ZALDIVAR MD 10/11/16 Sennosides/Docusate Sodium (Senna Plus Tablet) 1 Tab Tablet, 2 TAB PO BID for constipation, #60 TAB Prov:GARRET ZALDIVAR MD 10/11/16 Acetaminophen (Tylenol) 325 Mg Tablet, 325-650 MG PO Q5H Y for DISCOMFORT for 30 Days, TAB Prov:GARRET ZALDIVAR MD 10/11/16 Reported Medications [Liquid Iron + Vit C] No Conflict Check, 1 TSP PO DAILY 10/09/16 Amlodipine Besylate (Amlodipine Besylate) 5 Mg Tablet, 5 MG PO DAILY, #30 10/09/16 Hydrocodone/Apap ([place] 5-325 Tablet) 5-325 Tablet, 1 TAB PO PRN Y for PAIN, #12 10/09/16 Discontinued Reported Medications Glimepiride (Glimepiride) 2 Mg Tablet, 2 MG PO DAILY, #30 10/09/16 Insulin NPL/Insulin Lispro (Humalog Mix 50-50 Kwikpen) 100 Unit/1 Ml Insuln.pen , 14 UNIT SQ PM, #15 10/09/16 Insulin Lispro (Humalog) 100 Unit/1 Ml Insuln.pen, 4 UNIT SQ DAILY, #15 10/09/16 Furosemide (Lasix) 20 Mg Tablet, 20 MG PO DAILY 07/16/11 Potassium Chloride (Potassium Chloride) 10 Meq Tab.prt.sr, 10 MEQ PO DAILY 07/16/11 Insulin Npl/Insulin Lispro (Humalog Mix 50/50 Vial) 10 Ml Vial, 12 - 13 DAILY NOON 07/16/11 Ferrous Sulfate (Slow Fe) 160 Mg Tablet.sa, 2 TAB PO DAILY 07/16/11 Amlodipine (Norvasc) 2.5 Mg Tablet, 2.5 MG PO DAILY 07/16/11 Metformin Hcl (Metformin Hcl Er) 500 Mg Tab.sr.24h, 500 MG PO DAILY PM 07/16/11 Glimepiride (Glimepiride) 4 Mg Tablet, 4 MG PO BID 07/16/11 Allergies: Coded Allergies: Penicillins (Verified Allergy, Unknown, 07/16/11) promethazine (Verified Adverse Reaction, Severe, MENTAL STATUS CHANGE, 15/06) Family History Family History: parents and siblings all of old age Social History Smoking Status: Never smoker Substance Use Type: does not use Alcohol Intake: none Marital Status: Housing: house Household Members: family Current Occupational Status: retired Advance Directives: Yes DPOA for Healthcare Only (Chloe Perez) Review of Systems Constitutional: REPORTS: see HPI Cardiovascular see HPI Pulmonary Respiratory: see HPI GI Upper Abdomen: see HPI Musculoskeletal General: see HPI All Other Systems All Other Systems: Reviewed Physical Exam General General Nourishment: thin, adult General Body Habitus: well groomed Vital Signs Vital Signs Date Time Temp Pulse Resp B/P Pulse Ox O2 Delivery O2 Flow Rate FiO2 10/12/16 09:00 73 12 10/12/16 08:00 96.2 160/72 99 Room Air Height (Feet): 5 Height (Inches): 7.00 Eyes Brief: FOUND: EOMI, PERRL ENMT Brief: FOUND: TM clear, TM good light reflex Neck Brief: NOT FOUND: adenopathy, carotid bruits, thyromegaly Respiratory Brief: FOUND: clear all tiwari, equal bilaterally, NOT FOUND: rales Cardiovascular (brief) Cardiac Brief: FOUND: pedal edema, regular rate, regular rhythm Abdomen (brief) Abdominal Brief: FOUND: BS normo active x4, soft, NOT FOUND: tender Neurologic (brief) Neurological Brief: FOUND: cranial 2-12 intact, motor, sensory Neurologic RN Documented GCS Eye Opening: Verbal: Motor: Total: Laboratory Laboratory Tests Test 10/11/16 21:01 10/11/16 23:34 10/12/16 04:36 10/12/16 06:46 Glucometer 357mg/dL 300mg/dL 124mg/dL White Blood Count 4.4T/MM3 Red Blood Count 2.08M/MM3 Hemoglobin 6.5GM/DL Hematocrit 21.5% Mean Corpuscular Volume 103.4UM3 Mean Corpuscular Hemoglobin 31.3UUG Mean Corpuscular Hemoglobin Concent 30.2GM/DL RDW Standard Deviation 45.4FL Platelet Count 268T/MM3 Mean Platelet Volume 10.1UM3 Immature Granulocyte % (Auto) 0.0% Neutrophils (%) (Auto) 62.2% Lymphocytes (%) (Auto) 18.3% Monocytes (%) (Auto) 10.9% Eosinophils (%) (Auto) 7.9% Basophils (%) (Auto) 0.7% Absolute Immature Granulocyte (auto 0.00T/MM3 Absolute Neutrophils (auto) 2.8T/MM3 Absolute Lymphocytes (auto) 0.8T/MM3 Absolute Monocytes (auto) 0.5T/MM3 Absolute Eosinophils (auto) 0.4T/MM3 Absolute Basophils (auto) 0.0T/MM3 Absolute Reticulocyte Count 0.0557T/MM3 Percent Reticulocyte Count 2.0% Immature Reticulocyte Fraction 10.2% Reticulocyte Hgb Content (CHr) 33.0PG Turbidity < 20 Sodium Level 147MEQ/L Potassium Level 4.2MEQ/L Chloride Level 109MEQ/L Carbon Dioxide Level 29MEQ/L Anion Gap 9MEQ/L Blood Urea Nitrogen 53.0MG/DL Creatinine 1.9MG/DL Glomerular Filtration Rate Calc 25 BUN/Creatinine Ratio 28RATIO Glucose Level 108MG/DL Calculated Osmolality 297MOSM/KG Calcium Level 8.7MG/DL Icterus Index < 2 Chemistry Specimen Hemolysis < 15 Test 10/12/16 07:10 10/12/16 07:55 10/12/16 11:22 Urine Collection Type Cleancatch-midstream Urine Color Yellow Urine Turbidity Cloudy Urine pH 5.0 Urine Specific [place] 1.020 Urine Protein 2+ Urine Glucose (UA) 1+ Urine Ketones Negative Urine Blood Trace-lysed Urine Nitrite Negative Urine Bilirubin Negative Urine Urobilinogen 0.2EU/DL Urine Leukocyte Esterase Trace Urine RBC None seen/HPF Urine WBC 5-10/HPF Urine Bacteria 4+ Urine Culture Indicated Cult not indicated Hemoglobin 8.5GM/DL Hematocrit 27.7% Glucometer 166mg/dL Assessment & Plan Problems: (1) Myopathy Assessment & Plan: PT and OT will work with pt to create plan of care to address weakness and lack of stamina. (2) Falls Assessment & Plan: Staff to work on safety issues with pt. 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 Exercise for ADL's, UE Functional Training, Balance Training, Pt./Family Education, IADL's Hospital Course Summary Disclaimer The hospital course summary below is not to be considered part of the above Progress Note. CYNTHIA QUEZADA MD Oct 12, 2016 14:24
--- NOTE | 2016-10-12 14:29 | IRU24PDOC ---
24 Hour Post Admission Eval Relevant Changes Relevant Changes: No I have reviewed the patient's information and concur with the finding and results of the pre-admission screen. Certification I certify the patient for rehabilitation. Patient Condition Prior Medical Conditions: (1) Myopathy Additional Information: PT and OT will work with pt to create plan of care to address weakness and lack of stamina. (2) Falls Additional Information: Staff to work on safety issues with pt. (3) Pubic ramus fracture Status: Acute Additional Information: Pain and weakness can both be improved through cooperation with PT and OT (4) CKD (chronic kidney disease) stage 4, GFR 15-29 ml/min Status: Chronic Additional Information: medical to manage (5) DM2 (diabetes mellitus, type 2) Status: Chronic Additional Information: medical to manage (6) HTN (hypertension) Status: Chronic Current Medical Conditions: (1) Myopathy Additional Information: PT and OT will work with pt to create plan of care to address weakness and lack of stamina. (2) Falls Additional Information: Staff to work on safety issues with pt. (3) Pubic ramus fracture Status: Acute Additional Information: Pain and weakness can both be improved through cooperation with PT and OT (4) CKD (chronic kidney disease) stage 4, GFR 15-29 ml/min Status: Chronic Additional Information: medical to manage (5) DM2 (diabetes mellitus, type 2) Status: Chronic Additional Information: medical to manage (6) HTN (hypertension) Status: Chronic Prior Functional Condition Lives With: Daughter works offshore wind turbine technician. Residence Type: Private home/apartment Assistive Devices: Front Wheeled Walker Prior Functional Status: Indep. at home or school Current Functional Status Failed Alternative Therapy Tri: Arrived from acute care Patient Requirements * Patient has been determined to have significant functional limitations requiring at least two therapy disciplines. * Rehabilitation medical practitioner will provide admission approval, assessment and oversight and program coordination at least daily. * Intensive rehabilitative nursing services on site and available 24 hours a day. * The treatment plan will be developed within 24 hours of admission. * Interdisciplinary and goal oriented treatment by professional nursing, social worker masters, and rehabilitation therapist. * Interdisciplinary team meeting weekly inclusive of ongoing comprehensive discharge planning. First team meeting by day seven. Weekly meetings to follow. * Rehab Physician is the team meeting leader. * Pharmacy and diagnostic services will be available. * Ongoing comprehensive rehab program with at least 2 disciplines and greater than or equal to 3 hours a day, 5 days a week. Physical Therapy Minutes: 90 Occupational Therapy Minutes: 90 Therapy The patient is to receive therapy at least 5 days a week. Current Functional Status: Using assistive device Plan of Care Comment: 6x/wk for 1st wk; 5x/wk for 2nd and 3rd wks. OT Treatment Plan: ADL's (basic care), Ther. Exercise for ADL's, UE Functional Training, Balance Training, Pt./Family Education, IADL's OT Treatment Plan Frequency: five times per week OT Treatment Plan Duration: three weeks ROM Deficit: Left Lower Extremity, Right Lower Extremity Muscle Weakness Location: Left Lower Extremity, Right Lower Extremity Complication/Comorbidities Patient Complication Risk: (1) Myopathy Comments: PT and OT will work with pt to create plan of care to address weakness and lack of stamina. (2) Falls Comments: Staff to work on safety issues with pt. (3) Pubic ramus fracture Status: Acute Comments: Pain and weakness can both be improved through cooperation with PT and OT (4) CKD (chronic kidney disease) stage 4, GFR 15-29 ml/min Status: Chronic Comments: medical to manage (5) DM2 (diabetes mellitus, type 2) Status: Chronic Comments: medical to manage (6) HTN (hypertension) Status: Chronic Impact on Functional Outcomes Pt should be able to return to prefracture function Barriers to Discharge: weakness, endurance, balance, pain control Plan to Avoid Complications Plan to Avoid Complications The patient cannot receive this care in a lesser intensive setting such as Correction or Outpatient Therapy due to the patient requiring the following Current risk of falling and history of falls. ALso CKD, DM. The patient requires oversight by a rehabilitation physician to manage their rehabilitation treatment plan and the multidisciplinary approach to care that can only be provided in an IRF and requires a multidisciplinary approach to care , provided by professional PTs, OTs, STs, dieticians, RTs, rehabilitation nurses and is not available in lesser levels of care. The frequency and duration for therapy, as recommended by the professional Rehabilitation therapists, meet the patient's initial rehabilitation treatment plan needs and will be further evaluated on a weekly basis for progress and/or changes needed. 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
--- NOTE | 2016-10-12 14:44 | STEVAL ---
Eval Subjective and History Date/Time of Eval DATE: 10/12/16 TIME: 11:51 Medical Diagnosis Right-sided Pelvic Fracture Treatment Order: Assessment, Dev./Imp. tx plan Orientations: Person, Time Primary Complaint: weakness, fatigue, and inability to care for herself Pain: No (Patient reported having no pain ) Date of Onset of Primary Com: Cognition evaluation completed 10/12 Significant Past Medical Hx: Iron defeciency, DM2, HTN, Osteoporosis, CKD4, Hyponatremia, Pubic ramus fracture Medical History Form Reviewed: Yes Residence Type: Private home/apartment (with daughter ) Lives With: Children (daughter ) Prior Functional Status: Patient was previously living with daughter in [place]. Patient was admitted to the hospital for assessment of injury to right pelvis. Education Subject: Treatment Plan Person(s) Educated: Patient Instruction Understanding Demo: Pt. verbalizes understand Education Comment PYROGLAZER educated patient on reasoning for evaluation. Patient was agreeable to evaluation. Subjective and History Comment: Patient was in a pleasant mood for this morning's evaluation. Patient was transferred to room via FWW with Physical Therapy assistance. Patient had no c/o pain or fatigue. Patient agreed to having graduate clinician provide complete assessment while being supervised by BOB Adam. Cognition Answer yes/no questions: Yes Follow simple commands: Yes Follow complex commands: No (unable to follow multi-step (3+) directions ) Understands conversation: Yes Identifies a problem exists: Yes Identifies causes to situation: Yes Solving simple problems: Independently Solving complex problems: Maximum Expression Assessment Method: Verbal Expression Abilities: Complex Conversation % Words Intelligible: 100 % Sentence Intelligible: 100 % Conversation Intelligible: 100 Voice Quality: Within Functional Limits Repeats series number: Yes Repeats series word: Yes (required clinician to repeat words ) Repeats sentence: Yes Oriented to place: No (Was not aware of location) Oriented to time: Yes Recalled personal inform: Yes Recalled visitors: Yes (was not able to recall their names ) Recalled meal: Yes Recalled general inform: Yes Social Interaction: Interacts fam/staff/visit Immediate Memory Score: 19 Immediate Memory Rate: Profound 0-30th Percent Recent Memory Score: 25 Recent Memory Rate: Moderate 61-90th Percent Recent Time [place] Score: 24 Recent Time [place] Rate: Severe 31-60th Percent Remote Time [place] Score: 25 Remote Time [place] Rate: Severe 31-60th Percent Spatial [place] Score: 22 Spatial [place] Severity Rate: Severe 31-60th Percent Orientation to Enviro Score: 26 Orientation to Enviro Rate: Moderate 61-90th Percent Recall of General Info Score: 11 Recall of General Info Rate: Profound 0-30th Percent Problem Solving/Abstract Score: 24 Problem Solving/Abstract Rate: Moderate 61-90th Percent Organization Score: 16 Organization Severity Rating: Profound 0-30th Percent Auditory Processing/Retention: 25 Auditory Processing/Retention: Severe 31-60th Percent Assessment/Plan of Care Speech Therapy Impressions: Patient was referred for a cognitive evaluation. Clinician utilized the Ross Information Processing Assessment (RIPA) to assess patient's memory, orientation, problem solving, recall of general information, organization, and auditory process skills. During evaluation, patient demonstrated difficulty repeating longer utterances, identifying locations of items, and recalling general information (i.e who was the first president?). In addition, patient was observed to have no order when naming items within a category during a generative naming task. Patient required wait time (>10seconds) and maximum verbal prompting for the majority of the questions. Following are the scores of the RIPA: Immediate Memory Score: 19 Percentile Rank: 20 Severity: Profound Recent Memory Score: 25 Percentile Rank: 74 Severity: Moderate Temporal Orientation Score: 24 Percentile Rank:57 Severity: Severe Remote Memory Score: 25 Percentile Rank: 55 Severity: Severe Spatial Orientation Score: 22 Percentile Rank: 32 Severity: Severe Orientation to Environment Score: 26 Percentile Rank: 73 Severity: Moderate Recall of General Information Score: 11 Percentile Rank: 7 Severity: Profound Problem Solving/Abstract Reasoning Score: 24 Percentile Rank: 73 Severity: Moderate Organization Score: 16; Percentile Rank: 28 Severity: Profound Auditory Processing/Retention Score: 25 Percentile Rank: 38 Severity: Severe Patient would benefit from receiving speech therapy services to target memory, organization, spatial organization, and auditory process/retention skills. Goals are listed below. PENITENTIARY GOAL: Pt will use appropriate memory strategies to schedule and recall weekly activities, express needs, and recall names to maintain safety and participate socially in functional living environment SHORT TERM GOALS: Pt will repeat a 5 word list of functional words/phrases related to activities of daily living immediately after presentation with minimal cues and 80% accuracy. Pt will identify items within a category and/or state the category's class during a structured task requiring minimal cues with 85% accuracy. Pt will recall ADLS with minimal cues with 80% accuracy. Pt will use external memory aids and compensatory strategies to recall routine, personal information and recent events to improvement orientation to time/place with 85% accuracy given minimal cues. Pt will demonstrate recall of functional information following a short-term delay with minimal cues in order to increase functional integration into environment with 80% accuracy. ST Treatment Plan: Memory Retraining ST Treatment Plan Frequency: five times per week Treatment Plan Duration: one week Plan of Care Comment Cognitive Evaluation was completed to assess patient's memory, processing, and organization skills. It is recommended at this time for patient to be seen 5X/1 week for 30 minutes. Date of Visit 10/12/16 Time Visit Began: 09:10 Time Visit Ended: 10:05 ST Assess/Plan of Care: ST Treatment Charge: Speech Treatment Minutes of Individual Therapy: 55 ST FIM Comprehension Ability: 4 Minimal Assistance Social Interaction: 5 Supervision/Setup Problem Solvin Minimal Assistance Memory: 3 Moderate Assistance Expression Ability: 5 Supervision/Setup HOWARD FREEMAN Oct 12, 2016 11:54
--- NOTE | 2016-10-12 15:45 | NUR ---
Nutrition Risk R/T adult BMI < 18.6 and DM Screen DM screen completed 10/10 during hospitalization. Diet Order: 2000 calorie consistent carb diet Intake: bites - 25% Based on [address] [place] with 1.3 activity factor and 1.2 injury factor caloric needs ~1550 calories to maintain current weight. Pt may gain ~ 1 lb/week on 2000 calories. Pt states her UBW is ~ 133 lbs. Pt states she has had poor appetite for ~ 2 months and that is when her weight loss began. Pt states her appetite is improving, however then pt only ate bites for lunch. FANS notified to send BALDEV louisejenny shakes with meals. RD available at ext [phone]
[2016-10-12 16:00] VITALS: BP 155/82; PULSE 82; RESP 16; TEMP 97.7; O2SAT 99
[2016-10-12] MEDS: ACETAMINOPHEN 325 MG TABLET PO PRN (16:40)
--- NOTE | 2016-10-12 16:41 | NUR ---
ERICA THAPA IS 10 Addendum: 10/12/16 at 1641 by JASON ISABEL Amended: Links added.
--- NOTE | 2016-10-12 18:38 | NUR ---
CM CALL FROM PT'S DAUGHTER, HENRI. SHE SAID PT MIGHT NEED SNU PLACEMENT AT TIME OF DC. SHE SAID PT MIGHT ALSO NEED TO APPLY FOR MEDICAID (PT HAS NO ASSETS, INCOME IS LESS THAN $1,000.00 PER MONTH, AND HER BANK ACCOUNT IS LESS THAN $2,000.00). SHE SAID THIS IS SOMETHING THEY'VE BEEN THINKING ABOUT BUT NOT READY TO DO YET. SHE SAID SHE WORKS DURING THE DAY, SO PT WOULD NEED TO BE FAIRLY INDEPENDENT TO RETURN HOME.
--- NOTE | 2016-10-12 19:15 | NUR ---
Summary Pt. pleasant and cooperative. She is forgetful at times. VS's stable. Pt. is a transfer x1 with FWW and gait belt. She does transfer slowly. Pt. has denied nausea and SOA. Pain meds offered throughout the shift, but pt. refused need for them until before dinner. Pt. noted to groan and grimace with movement at times. She does have difficulty rating pain. Pt. reported pain in right pelvis before dinner. Spoke with pt. about pain management options. She reported she just wanted Tylenol and did not want anything stronger. PRN Tylenol administered. Please see eMAR. Upon re-assessment, pt. reported she felt much better. Mepilex to buttock noted to be C/D/I. Bilateral pedal pulses palpable. 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
[2016-10-12 19:50] VITALS: BP 154/75; PULSE 80; RESP 16; TEMP 98.2; O2SAT 100
--- NOTE | 2016-10-13 00:43 | NUR ---
Blood Glucose Pt had a low blood sugar of 59 @ HS. She had a boost and some crackers, however when rechecked it was 49. Pt did not want to drink juice, so was given a few options what she could do to get blood glucose up quickly. She chose a little sugar water. In 20 minutes her blood sugar had risen to 109. Patient had a sandwich to keep blood sugar up.
[2016-10-13] MEDS: ACETAMINOPHEN 325 MG TABLET PO PRN ×2 (04:02→23:43)
[2016-10-13 05:08] LABS: BASOPHILS % (AUTO) 0.7 % (0-2); EOSINOPHILS # (AUTO) 0.4 T/MM3 (0-0.5); EOSINOPHILS % (AUTO) 7.6 % (0-4); HCT - HEMATOCRIT 22.9 % (36-46); HGB - HEMOGLOBIN 6.8 GM/DL (12-16); IMMATURE GRANULOCYTE # (AUTO) 0.01 T/MM3 (0.00-0.03); IMMATURE GRANULOCYTE % (AUTO) 0.2 % (0.0-0.5); LYMPHOCYTES # (AUTO) 0.6 T/MM3 (1-4.8); LYMPHOCYTES % (AUTO) 12.6 % (23-45); MEAN CORPUSCULAR HGB 30.6 UUG (26-34); MEAN CORPUSCULAR HGB CONC(MCHC 29.7 GM/DL (31-37); MEAN CORPUSCULAR VOLUME 103.2 UM3 (80-100); MEAN PLATELET VOLUME 10.1 UM3 (9.4-12.4); MONOCYTES # (AUTO) 0.4 T/MM3 (0-0.8); NEUTROPHILS #(AUTO)-ABSOLUTE 3.3 T/MM3 (1.8-7.7); NEUTROPHILS % (AUTO) 70.9 % (33-66); RED BLOOD COUNT 2.22 M/MM3 (4.00-5.20); WBC - WHITE BLOOD COUNT 4.6 T/MM3 (4.5-11.0)
[2016-10-13 05:17] LABS: ANION GAP 9 MEQ/L (5-15); BUN/CREATININE RATIO 27 RATIO (6-26); CALCIUM 9.2 MG/DL (8.4-10.2); CHLORIDE 106 MEQ/L (98-107); CO2 - CARBON DIOXIDE 28 MEQ/L (22-30); GLOMERULAR FILTRATION RATE 24; GLUCOSE 174 MG/DL (65-110); POTASSIUM 4.7 MEQ/L (3.6-5); SODIUM 143 MEQ/L (134-144)
--- NOTE | 2016-10-13 07:00 | NUR ---
Summary Patient is alert and oriented, pleasant and cooperative. She ambulates with one assist with FWW and gait belt. She requires considerable help getting out of bed. She required Tylenol for pain only once last night for pain of 4/10 to pelvic area. Blood sugar high this AM, however due to low blood glucose last night, received order from Dr. Cherry to hold sliding scale. Hgb 6.[address] Daniel of blood sugar issues and asked to decrease SS to low dose and he agreed to this. Also notified him of Hgb and he ordered one unit blood to be transfused. Report given to day shift.
[2016-10-13] MEDS ORDERED: NORMAL SALINE 500 ML IV SCH (07:35)
[2016-10-13] MEDS ORDERED: INSULIN REGULAR 100 UNIT/ML SQ PRN (07:45)
[2016-10-13 08:00] VITALS: BP_SYST 185; BP_SYST 198; BP_DIAS 88; BP_DIAS 94; PULSE 89; PULSE 96; RESP 18; RESP 20; TEMP 97.8; TEMP 99.2; O2SAT 95; O2SAT 98
[2016-10-13] MEDS: AMLODIPINE 5 MG TABLET PO SCH (08:49)
[2016-10-13] MEDS: DOCUSATE SODIUM 100 MG CAPSULE PO SCH ×2 (08:50→21:00)
[2016-10-13] MEDS: SENNA + DOCUSATE TAB PO SCH ×2 (08:51→21:00)
--- NOTE | 2016-10-13 09:00 | NUR ---
Status Patient hemoglobin 6.8. Dr. Kimble ordered unit of blood. Patient wanted her daughter called for consent for blood transfusion. Daughter returned call. Refused blood transfusion for her mom. Stated she would be in to see her mom this afternoon and to sign refusal. Caryl Mooney APRN informed. Also informed SUPERVISOR [employer] SHANK DEPARTMENT of BP of 198/94. Clonidine 0.1mg given x1. Will recheck BP in 1 hour. Ferrous sulfate BID with meals also ordered.
[2016-10-13] MEDS ORDERED: CLONIDINE 0.1 MG TABLET PO ONE (09:15)
[2016-10-13] MEDS: FERROUS SULFATE 324 MG TABLET PO SCH ×2 (09:28→18:42)
[2016-10-13 10:15] VITALS: BP 185/88; PULSE 89; RESP 20; TEMP 97.8; O2SAT 95
[2016-10-13 13:42] VITALS: BP 157/71
[2016-10-13 16:00] VITALS: BP 168/82; PULSE 81; RESP 30; TEMP 97.5; O2SAT 95
[2016-10-13 19:51] VITALS: BP 158/71; PULSE 80; RESP 16; TEMP 98.3; O2SAT 96
--- NOTE | 2016-10-13 20:34 | NUR ---
Shift summary Patient daughter visited this afternoon, signed transfusion refusal form. Brought in liquid iron that patient takes at home. MAPLE SYRUP MAKER informed and stated that pharmacy needs to verify liquid iron supplement before patient can take at hospital. Patient ambulating with FWW, gait belt, min to mod assist. Total assist for wheelchair propulsion with nursing staff. Patient incontinent of urine this shift with staff managing incontinence. Wears pull ups.
[2016-10-14] MEDS: HYDROCODONE/APAP 5 mg/325 mg TABLET PO PRN (04:54)
[2016-10-14] MEDS ORDERED: INSULIN ASPART 100 UNIT/ML SQ PRN (06:15)
--- NOTE | 2016-10-14 07:46 | NUR ---
Summary Patient is alert and oriented times three. She is pleasant and cooperative. She has had a lot of pain tonight when getting up. She finally agreed to take a [place] 5 this AM. She had a Tylenol last night. Urine has a foul odor. Urinalysis showed 4+ bacteria. Dr Reese ordered culture and an antibiotic to start today. She had high blood sugars last night and this AM so had 3 units Novalog for each time. Pts daughter would like her to be on multivitamin and calcium. She would like her to take liquid iron that she brought from home, and possibly the vitamins she brought from home. This was passed on to first shift to request.
[2016-10-14 08:00] VITALS: BP 139/92; PULSE 115; RESP 18; TEMP 97.9; O2SAT 96
[2016-10-14] MEDS: ASPART SQ SCH ×2 (08:53→17:15)
[2016-10-14] MEDS: INSULIN NPH SQ SCH ×2 (08:53→17:15)
[2016-10-14] MEDS: FERROUS SULFATE 324 MG TABLET PO SCH (08:53)
[2016-10-14] MEDS: AMLODIPINE 5 MG TABLET PO SCH (08:53)
[2016-10-14] MEDS: DOCUSATE SODIUM 100 MG CAPSULE PO SCH ×2 (08:54→22:06)
[2016-10-14] MEDS: SENNA + DOCUSATE TAB PO SCH ×2 (08:54→22:07)
[2016-10-14] MEDS ORDERED: CEFUROXIME AXETIL 500 MG TABLET PO SCH (09:00)
[2016-10-14 10:33] LABS: BASOPHILS % (AUTO) 0.7 % (0-2); EOSINOPHILS # (AUTO) 0.3 T/MM3 (0-0.5); EOSINOPHILS % (AUTO) 4.4 % (0-4); HCT - HEMATOCRIT 27.7 % (36-46); HGB - HEMOGLOBIN 8.2 GM/DL (12-16); IMMATURE GRANULOCYTE # (AUTO) 0.01 T/MM3 (0.00-0.03); IMMATURE GRANULOCYTE % (AUTO) 0.2 % (0.0-0.5); LYMPHOCYTES # (AUTO) 1.2 T/MM3 (1-4.8); LYMPHOCYTES % (AUTO) 20.6 % (23-45); MEAN CORPUSCULAR HGB 30.5 UUG (26-34); MEAN CORPUSCULAR HGB CONC(MCHC 29.6 GM/DL (31-37); MEAN PLATELET VOLUME 10.5 UM3 (9.4-12.4); MONOCYTES # (AUTO) 0.2 T/MM3 (0-0.8); MONOCYTES % (AUTO) 4.2 % (0-9.0); NEUTROPHILS % (AUTO) 69.9 % (33-66); RED BLOOD COUNT 2.69 M/MM3 (4.00-5.20); WBC - WHITE BLOOD COUNT 5.7 T/MM3 (4.5-11.0)
--- NOTE | 2016-10-14 14:13 | PNPDOC ---
Subjective Date DATE: 10/14/16 TIME: 13:56 Subjective Ms. Perez is seen today in follow up for her pelvic fracture and new UTI. She is seen while resting in bed and reports that she is feeling better. She denies any complaints including no chest pain, shortness of breath, abdominal pain, nausea or vomiting She does admit to increased urinary frequency and was found to have a UTI last night with UA showing 5-10 WBC with 4+ bacteria. Telemed hospitalist initiated treatment with Ceftin which pharmacy has renally dosed. She denies any hematuria or burning with urination. She states that her appetite has been good and her bowels are moving. Family concerned about anemia. Hemoglobin was 6.8 on 10/13 and improved to 8.2 today. Family refused blood transfusion but has requested to be able to give the patient her home iron supplementation in liquid form as family does not believe that the patient is able to absorb the iron supplements given in the hospital which is why her hemoglobin is so variable. BUN and SCr remain elevated at 53 and 2.0 respectively which is at the patient's baseline. Objective Vital Signs Vital signs Vital Signs Date Time Temp Pulse Resp B/P Pulse Ox O2 Delivery O2 Flow Rate FiO2 10/14/16 08:00 97.9 115 18 139/92 96 Room Air Height (Feet): 5 Height (Inches): 7.00 Weight (Kilograms): 50.000 General General Appearance: Alert, Orientated x 3, Cooperative, No Acute Distress Eyes (Brief) Eyes: FOUND: PERRL, NOT FOUND: scleral icterus ENMT (Brief) ENMT: FOUND: mucosa moist Comments missing teeth Neck (Brief) Neck: FOUND: midline, NOT FOUND: nuchal rigidity, tracheal deviation Respiratory (Brief) Respiratory: FOUND: clear all tiwari, equal bilaterally, symmetrical, NOT FOUND : rales, wheezes Cardiovascular (Brief) Cardiac: FOUND: regular rate, regular rhythm, NOT FOUND: pedal edema Abdomen (Brief) Abdominal: FOUND: BS normo active x4, soft, NOT FOUND: distended, tender Extremities (Brief) Extremity : Side: Bilateral Extremity: leg Extremity Finding: NOT FOUND: deformity, edema Lymphatic (Brief) Lymphatic: NOT FOUND: lymphedema Musculoskeletal (Brief) Musculoskeletal: FOUND: extremities move equally, NOT FOUND: deformity, loss of motion Integumentary (Brief) Integumentary: FOUND: dry, pink, warm Comments afebrile Neurologic (Brief) Neurological: NOT FOUND: facial droop Psychiatric (Brief) Psychiatric: FOUND: alert, attentive, oriented Laboratory Laboratory Laboratory Tests 10/13/16 04:42 Laboratory Tests 10/13/16 04:42 10/14/16 09:53 Assessment & Plan Problems: (1) Macrocytic anemia Status: Chronic Assessment & Plan: History of anemia of chronic disease and iron deficiency anemia. Baseline hemoglobin has been 9-10. 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 1. Pelvic fracture secondary to falls * Continue to encourage participation in therapies to improve strength and functional abilities. * Provide a safe and supportive environment. 2. Macrocytic anemia * Hemoglobin variable throughout admission, ranging from 6's to 8's day to day. Patient has history of iron deficiency anemia as well as anemia of chronic disease. * Family has refused blood transfusion and requested that patient be able to take her home iron supplementation as they feel it is better absorbed, which is fine. * Continue to monitor hemoglobin and blood counts closely. 3.. Hypertension * Continue Norvasc and monitor blood pressure closely. Blood pressure also variable. 4. Diabetes * Blood sugars variable, ranging from lows in 40s-50s to highs >300. Continue to monitor closely. Consider consulting Dr. Estevez for expertise. 5. Hyponatremia- resolved. * Continue to monitor periodically. Recheck in AM with BMP. 6. Osteoporosis 7. UTI, new diagnosis * UA showed 5-10 WBC with 4+ bacteria. Ceftin initiated and renally dosed. Monitor closely. 8. CKD, stage 4 * Continue to monitor renal function closely - SCr 2.0 (baseline). Recommend follow up with community resource officer as outpatient to evaluate for upcoming need of fistula. Code Status Do Not Resuscitate Hospital Course Summary Disclaimer The hospital course summary below is not to be considered part of the above Progress Note. Hospital Course Summary 10/14: Evelyne. 1. Pelvic fracture secondary to falls * Continue to encourage participation in therapies to improve strength and functional abilities. * Provide a safe and supportive environment. 2. Macrocytic anemia * Hemoglobin variable throughout admission, ranging from 6's to 8's day to day. Patient has history of iron deficiency anemia as well as anemia of chronic disease. * Family has refused blood transfusion and requested that patient be able to take her home iron supplementation as they feel it is better absorbed, which is fine. * Continue to monitor hemoglobin and blood counts closely. 3.. Hypertension * Continue Norvasc and monitor blood pressure closely. Blood pressure also variable. 4. Diabetes * Blood sugars variable, ranging from lows in 40s-50s to highs >300. Continue to monitor closely. Consider consulting Dr. Estevez for expertise. 5. Hyponatremia- resolved. * Continue to monitor periodically. Recheck in AM with BMP. 6. Osteoporosis 7. UTI, new diagnosis * UA showed 5-10 WBC with 4+ bacteria. Ceftin initiated and renally dosed. Monitor closely. 8. CKD, stage 4 * Continue to monitor renal function closely - SCr 2.0 (baseline). Recommend follow up with community resource officer as outpatient to evaluate for upcoming need of fistula. MAHESH RUVALCABA Oct 14, 2016 13:59
--- NOTE | 2016-10-14 15:15 | PDIRUOPC ---
Overall Plan of Care Date DATE: 10/14/16 TIME: 15:11 Relevant Changes Relevant Changes: No I have reviewed the patient's information and concur with the finding and results of the pre-admission screen. Certification I certify the patient for rehabilitation. Patient Impairments Prior Medical Conditions: (1) Myopathy Additional Information: PT and OT will work with pt to create plan of care to address weakness and lack of stamina. (2) Falls Status: Acute Additional Information: Staff to work on safety issues with pt. (3) Pubic ramus fracture Status: Acute Additional Information: Pain and weakness can both be improved through cooperation with PT and OT (4) CKD (chronic kidney disease) stage 4, GFR 15-29 ml/min Status: Chronic Additional Information: medical to manage (5) DM2 (diabetes mellitus, type 2) Status: Chronic Additional Information: medical to manage (6) HTN (hypertension) Status: Chronic Current Medical Conditions: (1) Myopathy Additional Information: PT and OT will work with pt to create plan of care to address weakness and lack of stamina. (2) Falls Status: Acute Additional Information: Staff to work on safety issues with pt. (3) Pubic ramus fracture Status: Acute Additional Information: Pain and weakness can both be improved through cooperation with PT and OT (4) CKD (chronic kidney disease) stage 4, GFR 15-29 ml/min Status: Chronic Additional Information: medical to manage (5) DM2 (diabetes mellitus, type 2) Status: Chronic Additional Information: medical to manage (6) HTN (hypertension) Status: Chronic Medical Prognosis IRF Tx That Should Address Dx: (1) Pubic ramus fracture (2) Myopathy (3) Falls Dx Requiring Medical FU: (1) CKD (chronic kidney disease) stage 4, GFR 15-29 ml/min (2) DM2 (diabetes mellitus, type 2) (3) Hyponatremia (4) Macrocytic anemia Vital Signs Vital Signs Date Time Temp Pulse Resp B/P Pulse Ox O2 Delivery O2 Flow Rate FiO2 10/14/16 08:00 97.9 115 18 139/92 96 Room Air Laboratory Laboratory Tests Test 10/12/16 20:48 10/12/16 21:43 10/12/16 22:25 10/13/16 04:42 Glucometer 59mg/dL 49mg/dL 109mg/dL White Blood Count 4.6T/MM3 Red Blood Count 2.22M/MM3 Hemoglobin 6.8GM/DL Hematocrit 22.9% Mean Corpuscular Volume 103.2UM3 Mean Corpuscular Hemoglobin 30.6UUG Mean Corpuscular Hemoglobin Concent 29.7GM/DL RDW Standard Deviation 45.2FL Platelet Count 279T/MM3 Mean Platelet Volume 10.1UM3 Immature Granulocyte % (Auto) 0.2% Neutrophils (%) (Auto) 70.9% Lymphocytes (%) (Auto) 12.6% Monocytes (%) (Auto) 8.0% Eosinophils (%) (Auto) 7.6% Basophils (%) (Auto) 0.7% Absolute Immature Granulocyte (auto 0.01T/MM3 Absolute Neutrophils (auto) 3.3T/MM3 Absolute Lymphocytes (auto) 0.6T/MM3 Absolute Monocytes (auto) 0.4T/MM3 Absolute Eosinophils (auto) 0.4T/MM3 Absolute Basophils (auto) 0.0T/MM3 Turbidity < 20 Sodium Level 143MEQ/L Potassium Level 4.7MEQ/L Chloride Level 106MEQ/L Carbon Dioxide Level 28MEQ/L Anion Gap 9MEQ/L Blood Urea Nitrogen 53.0MG/DL Creatinine 2.0MG/DL Glomerular Filtration Rate Calc 24 BUN/Creatinine Ratio 27RATIO Glucose Level 174MG/DL Calculated Osmolality 293MOSM/KG Calcium Level 9.2MG/DL Icterus Index < 2 Chemistry Specimen Hemolysis < 15 Test 10/13/16 05:49 10/13/16 20:42 10/14/16 05:17 10/14/16 09:53 Glucometer 211mg/dL 328mg/dL 313mg/dL White Blood Count 5.7T/MM3 Red Blood Count 2.69M/MM3 Hemoglobin 8.2GM/DL Hematocrit 27.7% Mean Corpuscular Volume 103.0UM3 Mean Corpuscular Hemoglobin 30.5UUG Mean Corpuscular Hemoglobin Concent 29.6GM/DL RDW Standard Deviation 45.1FL Platelet Count 363T/MM3 Mean Platelet Volume 10.5UM3 Immature Granulocyte % (Auto) 0.2% Neutrophils (%) (Auto) 69.9% Lymphocytes (%) (Auto) 20.6% Monocytes (%) (Auto) 4.2% Eosinophils (%) (Auto) 4.4% Basophils (%) (Auto) 0.7% Absolute Immature Granulocyte (auto 0.01T/MM3 Absolute Neutrophils (auto) 4.0T/MM3 Absolute Lymphocytes (auto) 1.2T/MM3 Absolute Monocytes (auto) 0.2T/MM3 Absolute Eosinophils (auto) 0.3T/MM3 Absolute Basophils (auto) 0.0T/MM3 Anticipated Interventions The patient requires inpatient IRF care for PT, OT, and/or ST for residuals remaining from pubic ramus frcture and resulting myopathy resulting in muscular weakness and strength deficits. ROM Deficit: Left Lower Extremity, Right Lower Extremity Strength Deficits: Left Lower Extremity, Right Lower Extremity FIM Scores Ambulation Distance: 62 Wheelchair Propulsion Distance: 15 Ambulation Ability: 2 Maximum Assistance Ambulation Assistance Needed: 1 Person Walk FIM Score Reason: The pt walked 15ft x3,54ft and 62ft with the fww and 4/7 assist.The FIM score is 2/7 assist due to distance. Wheelchair Propulsion Ability: 1 Total Assistance Wheelchair Propulsion Assistan: 1 Person Wheelchair FIM Score Reason: The pt propelled herself approx.10ft and 15ft using her feet,4/7 assist.The FIM score is 1/7 assist due to distance. Stairs: 0 Activity Does Not Occur Eating Ability-FIM: 5 Supervision/Setup Grooming Ability: 4 Minimal Assistance Bathing Ability: 5 Supervision/Setup Upper Body Dressing Ability: 3 Moderate Assistance Lower Body Dressing Ability: 2 Maximum Assistance Lower Body Dressing Assistance: 1 Person Toileting Ability: 4 Minimal Assistance Toileting Assistance Needed: 1 Person Bed Transfer Ability: 2 Maximum Assistance Bed Transfer Assistance Needed: 1 Person Chair Transfer Ability: 4 Minimal Assistance Chair Transfer Assistance Need: 1 Person Overall Wheelchair Transfer Ab: 3 Moderate Assistance Overall Toilet / Commode Trans: 4 Minimal Assistance Toilet / Commode Transfer Assi: 1 Person Tub / Shower Transfer Ability: 4 Minimal Assistance Tub / Shower Transfer Assistan: 1 Person Tub/Shower FIM Score Reason: Pt. states she has walk in shower. Comprehension Ability: 5 Supervision/Setup Social Interaction: 5 Supervision/Setup Problem Solvin Moderate Assistance Expression Ability: 5 Supervision/Setup Memory: 5 Supervision/Setup Current Functional Status Failed Alternative Therapy: Arrived from acute care Patient Requires * Patient has been determined to have significant functional limitations requiring at least two therapy disciplines. * Rehabilitation medical practitioner will provide admission approval, assessment and oversight and program coordination at least daily. * Intensive rehabilitative nursing services on site and available 24 hours a day. * The treatment plan will be developed within 24 hours of admission. * Interdisciplinary and goal oriented treatment by professional nursing, hospice social worker, and rehabilitation therapist. * Interdisciplinary team meeting weekly inclusive of ongoing comprehensive discharge planning. First team meeting by day seven. Weekly meetings to follow. * Rehab Physician is the team meeting leader. * Pharmacy and diagnostic services will be available. * Ongoing comprehensive rehab program with at least 2 disciplines and greater than or equal to 3 hours a day, 5 days a week. Physical Therapy Minutes: 90 Occupational Therapy Minutes: 90 Therapy The patient is to receive therapy at least 5 days a week. PT Treatment Plan: Therapeutic Exercise, Gait Training, Functional Activities , Patient/Family Education, Balance/Proprioception Treatment Plan Frequency: five times per week Treatment Plan Duration: two weeks Plan of Care Comment: 6x/wk for 1st wk; 5x/wk for 2nd and 3rd wks. OT Treatment Plan: ADL's (basic care), Ther. Exercise for ADL's, UE Functional Training, Balance Training, Pt./Family Education, IADL's OT Treatment Plan Frequency: five times per week OT Treatment Plan Duration: three weeks ST Treatment Plan: Memory Retraining ST Treatment Plan Frequency: five times per week Treatment Plan Duration: one week Anticapted LOS/Outcomes Anticipated Functional Outcome improvement in strength and stability Anticipated DC Destination: Home Health Service Home Safety Plan The patient will be provided with the development of a Home Safety Plan for return to a home or home-like environment and to ensure safety post discharge. Complicating Conditions Complications since IRF admit: (1) Myopathy Comments: PT and OT will work with pt to create plan of care to address weakness and lack of stamina. (2) Falls Status: Acute Comments: Staff to work on safety issues with pt. (3) Pubic ramus fracture Status: Acute Comments: Pain and weakness can both be improved through cooperation with PT and OT (4) CKD (chronic kidney disease) stage 4, GFR 15-29 ml/min Status: Chronic Comments: medical to manage (5) DM2 (diabetes mellitus, type 2) Status: Chronic Comments: medical to manage (6) HTN (hypertension) Status: Chronic Other Contributing Factors: Plan to Avoid Complications Barriers to Attaining Goals: weakness, balance, endurance, pain control, medical limitation Plan to Avoid Complications The patient cannot receive this care in a lesser intensive setting such as [facility]pc or Outpatient Therapy due to the patient requiring the following medical supervisin due to uncontrolled type II DM, stage 4 ckd. The patient requires oversight by a rehabilitation physician to manage their rehabilitation treatment plan and the multidisciplinary approach to care that can only be provided in an IRF and requires a multidisciplinary approach to care , provided by professional PTs, OTs, STs, dieticians, RTs, rehabilitation nurses and is not available in lesser levels of care. The frequency and duration for therapy, as recommended by the professional Rehabilitation therapists, meet the patient's initial rehabilitation treatment plan needs and will be further evaluated on a weekly basis for progress and/or changes needed. Problem Qualifiers (1) DM2 (diabetes mellitus, type 2): Diabetes mellitus complication status: with kidney complications Diabetes mellitus complication detail: with chronic kidney disease Diabetes mellitus senior care insulin use: with senior care use Chronic kidney disease stage: stage 4 (severe) Qualified Codes: E11.22 - Type 2 diabetes mellitus with diabetic chronic kidney disease; N18.4 - Chronic kidney disease, stage 4 (severe ); Z79.4 - terminal carman (current) use of insulin CYNTHIA QUEZADA MD Oct 14, 2016 15:14
[2016-10-14 16:00] VITALS: BP 151/71; PULSE 77; RESP 18; TEMP 97.9; O2SAT 97
[2016-10-14] MEDS: ACETAMINOPHEN 325 MG TABLET PO PRN ×2 (17:44→22:45)
[2016-10-14 20:17] VITALS: BP 153/69; PULSE 77; RESP 16; TEMP 97.6; O2SAT 96
--- NOTE | 2016-10-14 21:09 | PNPDOC ---
IRU Subjective Date DATE: 10/14/16 TIME: 21:06 Subjective Pt resting, did eat dinner in commons area. Pelvic pain controlled. IRU Objective Vital Signs Vital signs Vital Signs Date Time Temp Pulse Resp B/P Pulse Ox O2 Delivery O2 Flow Rate FiO2 10/14/16 20:17 97.6 77 16 153/69 96 Room Air Height (Feet): 5 Height (Inches): 7.00 Weight (Kilograms): 50.000 General General Appearance: Alert, Orientated x 2 Respiratory (Brief) Respiratory: FOUND: clear all tiwari, equal bilaterally Cardiovascular (Brief) Cardiac: FOUND: regular rate, regular rhythm Capillary Refill: <2 sec Laboratory Laboratory Laboratory Tests Test 10/12/16 21:43 10/12/16 22:25 10/13/16 04:42 10/13/16 05:49 Glucometer 49mg/dL 109mg/dL 211mg/dL White Blood Count 4.6T/MM3 Red Blood Count 2.22M/MM3 Hemoglobin 6.8GM/DL Hematocrit 22.9% Mean Corpuscular Volume 103.2UM3 Mean Corpuscular Hemoglobin 30.6UUG Mean Corpuscular Hemoglobin Concent 29.7GM/DL RDW Standard Deviation 45.2FL Platelet Count 279T/MM3 Mean Platelet Volume 10.1UM3 Immature Granulocyte % (Auto) 0.2% Neutrophils (%) (Auto) 70.9% Lymphocytes (%) (Auto) 12.6% Monocytes (%) (Auto) 8.0% Eosinophils (%) (Auto) 7.6% Basophils (%) (Auto) 0.7% Absolute Immature Granulocyte (auto 0.01T/MM3 Absolute Neutrophils (auto) 3.3T/MM3 Absolute Lymphocytes (auto) 0.6T/MM3 Absolute Monocytes (auto) 0.4T/MM3 Absolute Eosinophils (auto) 0.4T/MM3 Absolute Basophils (auto) 0.0T/MM3 Turbidity < 20 Sodium Level 143MEQ/L Potassium Level 4.7MEQ/L Chloride Level 106MEQ/L Carbon Dioxide Level 28MEQ/L Anion Gap 9MEQ/L Blood Urea Nitrogen 53.0MG/DL Creatinine 2.0MG/DL Glomerular Filtration Rate Calc 24 BUN/Creatinine Ratio 27RATIO Glucose Level 174MG/DL Calculated Osmolality 293MOSM/KG Calcium Level 9.2MG/DL Icterus Index < 2 Chemistry Specimen Hemolysis < 15 Test 10/13/16 20:42 10/14/16 05:17 10/14/16 09:53 10/14/16 11:25 Glucometer 328mg/dL 313mg/dL 129mg/dL White Blood Count 5.7T/MM3 Red Blood Count 2.69M/MM3 Hemoglobin 8.2GM/DL Hematocrit 27.7% Mean Corpuscular Volume 103.0UM3 Mean Corpuscular Hemoglobin 30.5UUG Mean Corpuscular Hemoglobin Concent 29.6GM/DL RDW Standard Deviation 45.1FL Platelet Count 363T/MM3 Mean Platelet Volume 10.5UM3 Immature Granulocyte % (Auto) 0.2% Neutrophils (%) (Auto) 69.9% Lymphocytes (%) (Auto) 20.6% Monocytes (%) (Auto) 4.2% Eosinophils (%) (Auto) 4.4% Basophils (%) (Auto) 0.7% Absolute Immature Granulocyte (auto 0.01T/MM3 Absolute Neutrophils (auto) 4.0T/MM3 Absolute Lymphocytes (auto) 1.2T/MM3 Absolute Monocytes (auto) 0.2T/MM3 Absolute Eosinophils (auto) 0.3T/MM3 Absolute Basophils (auto) 0.0T/MM3 Test 10/14/16 14:51 10/14/16 20:29 Glucometer 177mg/dL 202mg/dL Microbiology Microbiology Microbiology Date/Time Source Procedure Growth Status 10/14/16 17:29 Urine, Voided-Not Cc-Midstream Urine Culture - Preliminary CULTURE INITIATED - RESULTS PENDING Resulted Assessment & Plan Problems: (1) Myopathy Assessment & Plan: Pt working with PT and OT, plan to reassess for team meeting saturday. (2) Falls Status: Acute Assessment & Plan: Safety issues discussed, pt working to follow them. (3) Pubic ramus fracture Status: Acute Assessment & Plan: PT and OT working with pt, Ortho following if needed. (4) CKD (chronic kidney disease) stage 4, GFR 15-29 ml/min Status: Chronic Assessment & Plan: medical to manage (5) DM2 (diabetes mellitus, type 2) Status: Chronic Qualifiers: Diabetes mellitus complication status: with kidney complications Diabetes mellitus complication detail: with chronic kidney disease Diabetes mellitus alf insulin use: with long term care social worker use Chronic kidney disease stage: stage 4 (severe) Qualified Codes: E11.22 - Type 2 diabetes mellitus with diabetic chronic kidney disease; N18.4 - Chronic kidney disease, stage 4 (severe ); Z79.4 - long term care social worker (current) use of insulin Assessment & Plan: medical to manage (6) HTN (hypertension) Status: Chronic Code Status Do Not Resuscitate Interventions to Obtain Goals PT Treatment Plan: Therapeutic Exercise, Gait Training, Functional Activities , Patient/Family Education, Balance/Proprioception OT Treatment Plan: ADL's (basic care), Ther. Exercise for ADL's, UE Functional Training, Balance Training, Pt./Family Education, IADL's ST Treatment Plan: Memory Retraining Hospital Course Summary Disclaimer The hospital course summary below is not to be considered part of the above Progress Note. Hospital Course Summary 10/14: Evelyne. 1. Pelvic fracture secondary to falls * Continue to encourage participation in therapies to improve strength and functional abilities. * Provide a safe and supportive environment. 2. Macrocytic anemia * Hemoglobin variable throughout admission, ranging from 6's to 8's day to day. Patient has history of iron deficiency anemia as well as anemia of chronic disease. * Family has refused blood transfusion and requested that patient be able to take her home iron supplementation as they feel it is better absorbed, which is fine. * Continue to monitor hemoglobin and blood counts closely. 3.. Hypertension * Continue Norvasc and monitor blood pressure closely. Blood pressure also variable. 4. Diabetes * Blood sugars variable, ranging from lows in 40s-50s to highs >300. Continue to monitor closely. Consider consulting Dr. Estevez for expertise. 5. Hyponatremia- resolved. * Continue to monitor periodically. Recheck in AM with BMP. 6. Osteoporosis 7. UTI, new diagnosis * UA showed 5-10 WBC with 4+ bacteria. Ceftin initiated and renally dosed. Monitor closely. 8. CKD, stage 4 * Continue to monitor renal function closely - SCr 2.0 (baseline). Recommend follow up with biofuels production associate as outpatient to evaluate for upcoming need of fistula. CYNTHIA QUEZADA MD Oct 14, 2016 21:09
[2016-10-14 22:00] VITALS: PULSE 77; RESP 16
[2016-10-14] MEDS: INSULIN ASPART 100 UNIT/ML SQ PRN (22:08)
--- NOTE | 2016-10-15 02:39 | NUR ---
Chart Check 24 hour chart check completed
[2016-10-15] MEDS: ACETAMINOPHEN 325 MG TABLET PO PRN ×4 (04:39→23:59)
[2016-10-15 05:27] LABS: BASOPHILS % (AUTO) 0.6 % (0-2); EOSINOPHILS # (AUTO) 0.2 T/MM3 (0-0.5); EOSINOPHILS % (AUTO) 4.5 % (0-4); HCT - HEMATOCRIT 24.1 % (36-46); HGB - HEMOGLOBIN 7.3 GM/DL (12-16); IMMATURE GRANULOCYTE # (AUTO) 0.02 T/MM3 (0.00-0.03); IMMATURE GRANULOCYTE % (AUTO) 0.4 % (0.0-0.5); LYMPHOCYTES # (AUTO) 0.8 T/MM3 (1-4.8); MEAN CORPUSCULAR HGB 31.3 UUG (26-34); MEAN CORPUSCULAR HGB CONC(MCHC 30.3 GM/DL (31-37); MEAN CORPUSCULAR VOLUME 103.4 UM3 (80-100); MEAN PLATELET VOLUME 10.6 UM3 (9.4-12.4); MONOCYTES # (AUTO) 0.4 T/MM3 (0-0.8); MONOCYTES % (AUTO) 6.9 % (0-9.0); NEUTROPHILS #(AUTO)-ABSOLUTE 3.9 T/MM3 (1.8-7.7); NEUTROPHILS % (AUTO) 72.6 % (33-66); RED BLOOD COUNT 2.33 M/MM3 (4.00-5.20); WBC - WHITE BLOOD COUNT 5.3 T/MM3 (4.5-11.0)
[2016-10-15 05:36] LABS: ANION GAP 12 MEQ/L (5-15); BUN/CREATININE RATIO 24 RATIO (6-26); CALCIUM 9.2 MG/DL (8.4-10.2); CHLORIDE 104 MEQ/L (98-107); CO2 - CARBON DIOXIDE 26 MEQ/L (22-30); CREATININE 2.3 MG/DL (0.7-1.2); GLOMERULAR FILTRATION RATE 20; GLUCOSE 213 MG/DL (65-110); MAGNESIUM 2.2 MG/DL (1.6-2.3); POTASSIUM 4.6 MEQ/L (3.6-5); SODIUM 142 MEQ/L (134-144)
[2016-10-15] MEDS: INSULIN ASPART 100 UNIT/ML SQ PRN ×3 (06:19→21:17)
--- NOTE | 2016-10-15 07:00 | NUR ---
SUMMARY VSS. REPORTED PAIN AND WAS MEDICATED X TWO WITH TYLENOL . SHE AMBULATED WITH TWO STAFF TO THE BATHROOM WITH MAX ASSIST OF ONE STAFF. MAX ASSIST 0G REFUSED TO SIT ON THE TOILET AND ONLY HOVERED OVER TH THE TOILT. Addendum: 10/15/16 at 0916 by MIYA GOMES RN SUMMARY VSS. REPORTED PAIN AND WAS MEDICATED X TWO WITH TYLENOL . SHE AMBULATED WITH TWO STAFF TO THE BATHROOM WITH MAX ASSIST .SHE REFUSED TO SIT ON THE TOILET AND ONLY HOVERED OVER IT TO URINATE. STAFF MANAGED HER HYGIENE.SIDE RAILS UP X TWO.BEDALARM IN PLACE.MEPILEX TO COCCYX INTACT.SSI GIVEN TWICE DUE TO ELEVATED BGM.
[2016-10-15 08:00] VITALS: BP 154/76; PULSE 81; RESP 24; TEMP 97; O2SAT 98
[2016-10-15] MEDS: INSULIN NPH SQ SCH ×2 (08:30→17:28)
[2016-10-15] MEDS: ASPART SQ SCH ×2 (08:30→17:28)
[2016-10-15] MEDS: SENNA + DOCUSATE TAB PO SCH ×2 (10:18→21:16)
[2016-10-15] MEDS: AMLODIPINE 5 MG TABLET PO SCH (10:18)
[2016-10-15] MEDS: DOCUSATE SODIUM 100 MG CAPSULE PO SCH ×2 (10:18→21:16)
[2016-10-15] MEDS: CEFUROXIME AXETIL 500 MG TABLET PO SCH (10:18)
[2016-10-15] MEDS: VIT C PO SCH (10:19)
[2016-10-15] MEDS: [UNRECOGNIZED DRUG - OTHER] PO SCH (10:19)
--- NOTE | 2016-10-15 10:45 | NUR ---
Malnutrition risk f/u diet: [id number]; intake: 66% (average past 6 meals); Mighty Shakes, with meals; increased intake. CKD 4, GFR: 25; RD recommendation: 2 g Na diet
--- NOTE | 2016-10-15 12:00 | NUR ---
discomfort co of buttocks pain and leg pain is tired from all the p.t. she has done today, mediated with Tylenol 650 mg po. up with gait belt and walker.
--- NOTE | 2016-10-15 13:52 | STDAILYN ---
ST Daily Note Date/Time DATE: 10/15/16 TIME: 12:51 Subjective Comment Upon arrival, patient was finishing session with occupational therapy; HECTOR transferred patient to chair using FWW. Patient was in a pleasant mood and c/o of pain in her hip/bottom. Clinician provided pillow for comfort and consulted with nursing staff regarding pain management. Nursing staff delivered medication during therapy session. Graduate clinician provided therapy while being supervised by BOB Adam. Orientations: Person, Alert Chief Complaint: Right-Sided Pelvic Fracture; Confusion Pain: Yes (Patient reported having pain in hip/bottom. Clinician provided pillow for comfort and consulted nursing staff about pain medications. Nursing staff administered medication during session. ) Was Patient Education Provided: Yes Person(s) Educated: Patient Education Subject: Treatment Plan Instruction Understanding Demo: Pt. verbalizes understand Education Comment Patient was educated on different memory strategies to use while naming items within a category. Patient verbalized understanding. *Speech Therapy Impressions ALF GOAL: Pt will use appropriate memory strategies to schedule and recall weekly activities, express needs, and recall names to maintain safety and participate socially in functional living environment SHORT TERM GOALS: Pt will repeat a 5 word list of functional words/phrases related to activities of daily living immediately after presentation with minimal cues and 80% accuracy. Not targeted during therapy Pt will identify items within a category and/or state the category's class during a structured task requiring minimal cues with 85% accuracy. Patient was instructed to name as many items within a given category. Memory strategies were explained to the patient. First category was COLORS. Without assistance, patient verbalized 5 colors.Clinicians informed patient of thinking of the rainbow to name colors, ROYGBIV, or singing the color song. Second category was ANIMALS. Patient had no order to grouping animals and named 4 without assistance. Patient was provided specific groups of animals (i.e. pet, zoo, farm) to help sort animals. Patient required moderate to maximum prompting via phonemic, gestural, verbal, and contextual cues. Pt will recall ADLS with minimal cues with 80% accuracy. Patient recalled morning activities including having scrambled eggs for breakfast and working with the other therapies (i.e. walking). Pt will use external memory aids and compensatory strategies to recall routine, personal information and recent events to improvement orientation to time/place with 85% accuracy given minimal cues. Not targeted during therapy Pt will demonstrate recall of functional information following a short-term delay with minimal cues in order to increase functional integration into environment with 80% accuracy. Not targeted during therapy ST Treatment Plan: Memory Retraining ST Treatment Plan Frequency: five times per week Treatment Plan Duration: one week Plan of Care Comment: Continue Plan of Care Start Treatment 1: 11:39 Stop Treatment 1: 12:09 Treatment Duration : ST Treatment Charge: Speech Treatment Minutes of Individual Therapy: 30 ST FIM Comprehension Ability: 3 Moderate Assistance Social Interaction: 5 Supervision/Setup Problem Solvin Minimal Assistance Memory: 3 Moderate Assistance Expression Ability: 5 Supervision/Setup HOWARD FREEMAN October 15, 2016 12:55
--- NOTE | 2016-10-15 14:05 | NUR ---
RENAL DOSING: Today's SCr = 2.3 mg/dl. Calculated CrCl = 14.8 ml/min. I will continue the Cefuroximne 500 mg po every 24 hours. sRENAL DOSING: Will continue the Cefepime 1 g iv every 6 hours as currently ordered. The pharmacy will continue to review the renal function and adjust the medications accordingly per Pharmacy Renal Monitoring and Adjustment Program. Thanks, Epfianio Page RPh. The pharmacy will continue to review the renal function and adjust the medications accordingly per Pharmacy Renal Monistoring and Adjustment Program. Thanks, Epifanio Page, ORIONh
--- NOTE | 2016-10-15 14:18 | NUR ---
comfort resting in chair.
--- NOTE | 2016-10-15 15:09 | NUR ---
up to bathroom incont of urine brief changed back to bed to rest. co of buttocks pain.
[2016-10-15 15:38] VITALS: BP 148/69; PULSE 80; RESP 22; TEMP 98.1; O2SAT 99
--- NOTE | 2016-10-15 16:16 | NUR ---
CM THIS WORKER SPOKE WITH PT, INTRODUCED SELF, EXPLAINED ROLE, PROVIDED CONTACT INFO. PT STATED SHE LIVES WITH HER DAUGHTER IN AN APARTMENT IN [place], AND SHE SAID SHE WOULD LIKE TO RETURN BACK HOME. THIS WORKER EXPLAINED THAT DC FROM HERE MIGHT NEED TO BE A SNU (PER PRIOR CONVERSATION WITH DAUGHTER). PT WAS VERY AGREEABLE TO THIS. THIS WORKER EXPLAINED THIS IS A PENDING DC GOAL AND IT COULD CHANGE. PT WAS AGREEABLE TO THIS. SHE HAD NO QUESTIONS/CONCERNS FOR THIS WORKER. Addendum: 10/15/16 at 1619 by JASON ISABEL Amended: Links added.
--- NOTE | 2016-10-15 18:04 | NUR ---
ambulated to dining room with a assist and walker and gait belt. co of severe pain on buttocks pillow provided to sit on for comfort. medicated with tylenol for pain.
--- NOTE | 2016-10-15 18:09 | NUR ---
CM DAUGHTER REQUESTED TO SPEAK WITH THIS WORKER. DISCUSSED DC PLANNING. SHE SAID SHE DOES NOT WANT PT TO GO [facility]. SHE SAID SHE WANTS THE PT TO RETURN HOME WITH HER. SHE SAID SHE WORKS DURING THE DAY, SO PT WILL NEED TO BE ABLE TO BE ON HER OWN DURING THAT TIME. SHE SAID SHE WOULD LIKE TO HAVE PT GO TO A SNU FOR A LITTLE WHILE PRIOR TO RETURNING HOME, DUE TO HER CONCERN OF THE PT'S PAIN LEVEL. SHE SAID SHE WILL TOUR SOME FACILITIES IN [facility]. PROVIDED HER WITH CONTACT INFO.
--- NOTE | 2016-10-15 18:42 | NUR ---
ambulated back to room back to bed encouraged to lay on side to off load pressure on coccyx.
[2016-10-15 19:29] VITALS: BP 154/84; PULSE 84; RESP 16; TEMP 98; O2SAT 100
--- NOTE | 2016-10-15 23:03 | PNPDOC ---
IRU Subjective Date DATE: 10/15/16 TIME: 23:01 Subjective continuing to show improvement. PT and OT working with her and she is cooperating with them. IRU Objective Vital Signs Vital signs Vital Signs Date Time Temp Pulse Resp B/P Pulse Ox O2 Delivery O2 Flow Rate FiO2 10/15/16 19:29 98.0 84 16 154/84 100 Room Air Height (Feet): 5 Height (Inches): 7.00 Weight (Kilograms): 50.000 General General Appearance: Alert, Orientated x 2 Respiratory (Brief) Respiratory: FOUND: clear all tiwari, equal bilaterally Cardiovascular (Brief) Cardiac: FOUND: regular rate, regular rhythm Laboratory Laboratory Laboratory Tests Test 10/14/16 05:17 10/14/16 09:53 10/14/16 11:25 10/14/16 14:51 Glucometer 313mg/dL 129mg/dL 177mg/dL White Blood Count 5.7T/MM3 Red Blood Count 2.69M/MM3 Hemoglobin 8.2GM/DL Hematocrit 27.7% Mean Corpuscular Volume 103.0UM3 Mean Corpuscular Hemoglobin 30.5UUG Mean Corpuscular Hemoglobin Concent 29.6GM/DL RDW Standard Deviation 45.1FL Platelet Count 363T/MM3 Mean Platelet Volume 10.5UM3 Immature Granulocyte % (Auto) 0.2% Neutrophils (%) (Auto) 69.9% Lymphocytes (%) (Auto) 20.6% Monocytes (%) (Auto) 4.2% Eosinophils (%) (Auto) 4.4% Basophils (%) (Auto) 0.7% Absolute Immature Granulocyte (auto 0.01T/MM3 Absolute Neutrophils (auto) 4.0T/MM3 Absolute Lymphocytes (auto) 1.2T/MM3 Absolute Monocytes (auto) 0.2T/MM3 Absolute Eosinophils (auto) 0.3T/MM3 Absolute Basophils (auto) 0.0T/MM3 Test 10/14/16 20:29 10/15/16 04:37 10/15/16 05:55 10/15/16 10:10 Glucometer 202mg/dL 263mg/dL 214mg/dL White Blood Count 5.3T/MM3 Red Blood Count 2.33M/MM3 Hemoglobin 7.3GM/DL Hematocrit 24.1% Mean Corpuscular Volume 103.4UM3 Mean Corpuscular Hemoglobin 31.3UUG Mean Corpuscular Hemoglobin Concent 30.3GM/DL RDW Standard Deviation 44.7FL Platelet Count 324T/MM3 Mean Platelet Volume 10.6UM3 Immature Granulocyte % (Auto) 0.4% Neutrophils (%) (Auto) 72.6% Lymphocytes (%) (Auto) 15.0% Monocytes (%) (Auto) 6.9% Eosinophils (%) (Auto) 4.5% Basophils (%) (Auto) 0.6% Absolute Immature Granulocyte (auto 0.02T/MM3 Absolute Neutrophils (auto) 3.9T/MM3 Absolute Lymphocytes (auto) 0.8T/MM3 Absolute Monocytes (auto) 0.4T/MM3 Absolute Eosinophils (auto) 0.2T/MM3 Absolute Basophils (auto) 0.0T/MM3 Turbidity < 20 Sodium Level 142MEQ/L Potassium Level 4.6MEQ/L Chloride Level 104MEQ/L Carbon Dioxide Level 26MEQ/L Anion Gap 12MEQ/L Blood Urea Nitrogen 56.0MG/DL Creatinine 2.3MG/DL Glomerular Filtration Rate Calc 20 BUN/Creatinine Ratio 24RATIO Glucose Level 213MG/DL Calculated Osmolality 295MOSM/KG Calcium Level 9.2MG/DL Phosphorus Level 4.0MG/DL Magnesium Level 2.2MG/DL Icterus Index < 2 Chemistry Specimen Hemolysis < 15 Test 10/15/16 14:06 10/15/16 20:13 Glucometer 124mg/dL 199mg/dL Microbiology Microbiology Microbiology Date/Time Source Procedure Growth Status 10/14/16 17:29 Urine, Voided-Not Cc-Midstream Urine Culture - Preliminary Escherichia Coli Resulted Assessment & Plan Problems: (1) Myopathy Assessment & Plan: improvement with PT nd OT involvement. Reeval on saturday team meeting. (2) Falls Status: Acute Assessment & Plan: safety issue still being treated. (3) Pubic ramus fracture Status: Acute Assessment & Plan: stable, pt working with pt and ot and shows improvement overall. (4) CKD (chronic kidney disease) stage 4, GFR 15-29 ml/min Status: Chronic (5) DM2 (diabetes mellitus, type 2) Status: Chronic Qualifiers: Diabetes mellitus complication status: with kidney complications Diabetes mellitus complication detail: with chronic kidney disease Diabetes mellitus technician terminal and repeater insulin use: with technician terminal and repeater use Chronic kidney disease stage: stage 4 (severe) Qualified Codes: E11.22 - Type 2 diabetes mellitus with diabetic chronic kidney disease; N18.4 - Chronic kidney disease, stage 4 (severe ); Z79.4 - correction (current) use of insulin (6) HTN (hypertension) Status: Chronic Code Status Do Not Resuscitate Interventions to Obtain Goals PT Treatment Plan: Therapeutic Exercise, Gait Training, Functional Activities , Patient/Family Education, Balance/Proprioception OT Treatment Plan: ADL's (basic care), Ther. Exercise for ADL's, UE Functional Training, Balance Training, Pt./Family Education, IADL's ST Treatment Plan: Memory Retraining Hospital Course Summary Disclaimer The hospital course summary below is not to be considered part of the above Progress Note. Hospital Course Summary 10/14: Evelyne. 1. Pelvic fracture secondary to falls * Continue to encourage participation in therapies to improve strength and functional abilities. * Provide a safe and supportive environment. 2. Macrocytic anemia * Hemoglobin variable throughout admission, ranging from 6's to 8's day to day. Patient has history of iron deficiency anemia as well as anemia of chronic disease. * Family has refused blood transfusion and requested that patient be able to take her home iron supplementation as they feel it is better absorbed, which is fine. * Continue to monitor hemoglobin and blood counts closely. 3.. Hypertension * Continue Norvasc and monitor blood pressure closely. Blood pressure also variable. 4. Diabetes * Blood sugars variable, ranging from lows in 40s-50s to highs >300. Continue to monitor closely. Consider consulting Dr. Estevez for expertise. 5. Hyponatremia- resolved. * Continue to monitor periodically. Recheck in AM with BMP. 6. Osteoporosis 7. UTI, new diagnosis * UA showed 5-10 WBC with 4+ bacteria. Ceftin initiated and renally dosed. Monitor closely. 8. CKD, stage 4 * Continue to monitor renal function closely - SCr 2.0 (baseline). Recommend follow up with chronometer repairer as outpatient to evaluate for upcoming need of fistula. CYNTHIA QUEZADA MD October 15, 2016 23:03
[2016-10-16] VITALS (7 sets, daily range): BP systolic 147–172; BP diastolic 71–79; PULSE 78–94; RESP 12–20; TEMP 97.5–98.6; O2SAT 97–99
--- NOTE | 2016-10-16 02:49 | NUR ---
Chart Check 24 hour chart check completed
--- NOTE | 2016-10-16 05:17 | NUR ---
SHIFT SUMMARY Pt A&O, forgetful at times and difficulty following conversation at times. Pt afebrile, VSS, remains on RA, no IV access, adequate U/O, no BM this TOD. Pt ambulates to bathroom, continent with dribbling at times, x1 assist, gait belt, and FWW. Assistance needed with personal hygiene cares. Pt's daughter at the bedside in evening, pt and daughter educated on all aspects of plan of care, all questions answered and concerns addressed. Pt up to bathroom early this AM, c/o pain and cramping in buttocks and legs requiring more assistance when ambulating, PRN Tylenol given and effective. All fall precautions in place, bed alarm on, all personal items within reach, will continue to monitor.
[2016-10-16 05:25] LABS: BASOPHILS % (AUTO) 0.7 % (0-2); EOSINOPHILS # (AUTO) 0.2 T/MM3 (0-0.5); EOSINOPHILS % (AUTO) 4.2 % (0-4); HCT - HEMATOCRIT 25.1 % (36-46); HGB - HEMOGLOBIN 7.6 GM/DL (12-16); IMMATURE GRANULOCYTE # (AUTO) 0.01 T/MM3 (0.00-0.03); IMMATURE GRANULOCYTE % (AUTO) 0.2 % (0.0-0.5); LYMPHOCYTES # (AUTO) 0.9 T/MM3 (1-4.8); LYMPHOCYTES % (AUTO) 16.3 % (23-45); MEAN CORPUSCULAR HGB 31.3 UUG (26-34); MEAN CORPUSCULAR HGB CONC(MCHC 30.3 GM/DL (31-37); MEAN CORPUSCULAR VOLUME 103.3 UM3 (80-100); MEAN PLATELET VOLUME 10.5 UM3 (9.4-12.4); MONOCYTES # (AUTO) 0.4 T/MM3 (0-0.8); MONOCYTES % (AUTO) 6.2 % (0-9.0); NEUTROPHILS #(AUTO)-ABSOLUTE 4.1 T/MM3 (1.8-7.7); NEUTROPHILS % (AUTO) 72.4 % (33-66); RED BLOOD COUNT 2.43 M/MM3 (4.00-5.20); WBC - WHITE BLOOD COUNT 5.7 T/MM3 (4.5-11.0)
[2016-10-16 05:30] LABS: ANION GAP 13 MEQ/L (5-15); BUN/CREATININE RATIO 28 RATIO (6-26); CALCIUM 9.2 MG/DL (8.4-10.2); CHLORIDE 103 MEQ/L (98-107); CO2 - CARBON DIOXIDE 25 MEQ/L (22-30); CREATININE 2.2 MG/DL (0.7-1.2); GLOMERULAR FILTRATION RATE 21; GLUCOSE 185 MG/DL (65-110); POTASSIUM 4.6 MEQ/L (3.6-5); SODIUM 141 MEQ/L (134-144)
[2016-10-16] MEDS: INSULIN ASPART 100 UNIT/ML SQ PRN ×3 (06:45→21:49)
[2016-10-16] MEDS: ACETAMINOPHEN 325 MG TABLET PO PRN ×3 (08:12→21:53)
[2016-10-16] MEDS: DOCUSATE SODIUM 100 MG CAPSULE PO SCH ×2 (08:43→21:48)
[2016-10-16] MEDS: CEFUROXIME AXETIL 500 MG TABLET PO SCH (08:43)
[2016-10-16] MEDS: ASPART SQ SCH ×2 (08:43→17:53)
[2016-10-16] MEDS: INSULIN NPH SQ SCH ×2 (08:43→17:53)
[2016-10-16] MEDS: SENNA + DOCUSATE TAB PO SCH ×2 (08:43→21:48)
[2016-10-16] MEDS: AMLODIPINE 5 MG TABLET PO SCH (08:44)
[2016-10-16] MEDS: [UNRECOGNIZED DRUG - OTHER] PO SCH (08:45)
[2016-10-16] MEDS: VIT C PO SCH (08:45)
--- NOTE | 2016-10-16 12:00 | NUR ---
Pain Pt. noted to be crying at breakfast this A.M. She reports terrible pain in right pelvic area. Discussed pain med options with pt. and she reported she only wanted Tylenol. Tylenol given and pt. was helped to re-position. Please see eMAR. Will continue to monitor.
--- NOTE | 2016-10-16 14:01 | STDAILYN ---
ST Daily Note Date/Time DATE: 10/16/16 TIME: 08:58 Subjective Comment Patient was met in the dining room while she ate breakfast. Patient reported having pain in right hip so clinicians provided pillow support beneath hip and nursing staff was notified to provide pain medication. Graduate clinician provided therapy while being supervised by BOB Adam. Orientations: Person, Place Chief Complaint: Right-Sided Pelvic Fracture; Confusion Pain: Yes (Patient reported pain in right hip. Pillow support was given and nursing staff notified ) Was Patient Education Provided: Yes Person(s) Educated: Patient Education Subject: Treatment Plan Instruction Understanding Demo: Pt. verbalizes understand Education Comment Patient was educated on treatment plan. Patient verbalized understanding. *Speech Therapy Impressions When asked, patient recalled ADL's with approximately 70% accuracy; however, patient required moderate verbal prompts and forced choices. Patient perseverated on pain despite medications being provided and on other therapy "walking her everywhere" the previous day. In addition, patient repeated "it will just come back I know it" regarding her memory and patient was repetitive with guitar story. Clinicians assisted patient with problem solving how to place a pillow under her hip to ease the pain. Patient required maximum verbal cueing to have her mail examiner order for the pillow to be placed. Tasks to targeting goals were limited secondary due to perseveration on pain and previous days events. ST Treatment Plan: Memory Retraining ST Treatment Plan Frequency: five times per week Treatment Plan Duration: one week Plan of Care Comment: Continue Plan of Care Start Treatment 1: 08:30 Stop Treatment 1: 09:00 Treatment Duration : ST Treatment Charge: Speech Treatment Minutes of Individual Therapy: 30 ST FIM Comprehension Ability: 3 Moderate Assistance Social Interaction: 5 Supervision/Setup Problem Solvin Moderate Assistance Memory: 3 Moderate Assistance Expression Ability: 5 Supervision/Setup HOWARD FREEMAN October 16, 2016 09:04
--- NOTE | 2016-10-16 15:00 | NUR ---
Pain Pt. is currently lying in bed and says she feels good. She is noted to moan and groan with activity due to pain. Discussed pain meds again with pt. and encouraged stronger pain meds. Also discussed Lidoderm patch that was ordered with pt. She again refused stronger pain meds and also refused Lidoderm patch. Pt. reports she will take Tylenol, but does not want to take anything stronger. She reports she does not want to get addicted to pain meds. Dr. Zelaya and MINDY Mejia, notified of pt.'s refusal of strong pain meds. Encouraged re-positioning for comfort. Will continue to monitor.
[2016-10-16] MEDS: LIDOCAINE 5% PATCH TOP SCH (15:04)
--- NOTE | 2016-10-16 15:13 | PNPDOC ---
Subjective Date DATE: 10/16/16 TIME: 15:01 Subjective Melvi is seen today while resting in bed. She reports that she has intermittent pain however she is quite hesitant to use anything stronger than Tylenol for pain relief. She states that she is concerned about getting "addicted" to narcotics. She does feel that pain does improve with Tylenol. However, it just takes time. Otherwise, she denies having shortness of breath, abdominal pain or dysuria. Noted hypertension to be elevated 172/79. Hgb 7.6. Objective Vital Signs Vital signs Vital Signs Date Time Temp Pulse Resp B/P Pulse Ox O2 Delivery O2 Flow Rate FiO2 10/16/16 09:50 97.5 94 18 172/79 99 Room Air Height (Feet): 5 Height (Inches): 7.00 Weight (Kilograms): 50.000 General General Appearance: Alert, Orientated x 3, Cooperative, No Acute Distress Eyes (Brief) Eyes: FOUND: EOMI ENMT (Brief) ENMT: FOUND: mucosa moist, normal dentition, NOT FOUND: pharnyx erythema Neck (Brief) Neck: FOUND: midline, NOT FOUND: adenopathy, carotid bruits, tracheal deviation Respiratory (Brief) Respiratory: FOUND: clear all tiwari, equal bilaterally, NOT FOUND: wheezes Cardiovascular (Brief) Cardiac: FOUND: regular rate, regular rhythm, NOT FOUND: murmur, pedal edema Capillary Refill: <2 sec Abdomen (Brief) Abdominal: FOUND: BS normo active x4, soft, NOT FOUND: distended, tender Lymphatic (Brief) Lymphatic: NOT FOUND: adenopathy Musculoskeletal (Brief) Musculoskeletal: FOUND: tenderness (pelvis, right lateral hip) Integumentary (Brief) Integumentary: FOUND: dry, pink, warm Neurologic (Brief) Neurological: FOUND: cranial 2-12 intact Psychiatric (Brief) Psychiatric: FOUND: alert, attentive, normal affect, oriented Laboratory Laboratory Laboratory Tests 10/15/16 04:37 10/16/16 04:38 Laboratory Tests 10/15/16 04:37 10/16/16 04:38 Microbiology Microbiology Microbiology Date/Time Source Procedure Growth Status 10/14/16 17:29 Urine, Voided-Not Cc-Midstream Urine Culture - Final Escherichia Coli Complete Assessment & Plan Problems: (1) Macrocytic anemia Status: Chronic Assessment & Plan: History of anemia of chronic disease and iron deficiency anemia. Baseline hemoglobin has been 9-10. (2) Falls Status: Acute (3) Pubic ramus fracture Status: Acute (4) DM2 (diabetes mellitus, type 2) Status: Chronic Qualifiers: Diabetes mellitus complication status: with kidney complications Diabetes mellitus complication detail: with chronic kidney disease Diabetes mellitus supervisor intermediates insulin use: with supervisor intermediates use Chronic kidney disease stage: stage 4 (severe) Qualified Codes: E11.22 - Type 2 diabetes mellitus with diabetic chronic kidney disease; N18.4 - Chronic kidney disease, stage 4 (severe ); Z79.4 - correction (current) use of insulin (5) HTN (hypertension) Status: Chronic (6) Hyponatremia Status: Chronic (7) Osteoporosis Status: Chronic Plan/Intensity of Service 10/16/16 Will need to continue to monitor Hgb closely. Today Hgb is 7.6. Will recheck tomorrow. Will add Lidoderm patch to right hip along with Tylenol for better pain control. Urine culture positive for E-Coli which is pansensitive. Continue with Ceftin for 7 days for coverage, end date 10/21/16. Monitor blood sugars NovoLog 70/38 units twice a day as well as sliding scale. Senna plus and Colace twice a day for ongoing bowel motivation Continue to encourage work with PT and OT for ongoing strengthening and pain control. Code Status Do Not Resuscitate Hospital Course Summary Disclaimer The hospital course summary below is not to be considered part of the above Progress Note. Hospital Course Summary 10/14: Evelyne. 1. Pelvic fracture secondary to falls * Continue to encourage participation in therapies to improve strength and functional abilities. * Provide a safe and supportive environment. 2. Macrocytic anemia * Hemoglobin variable throughout admission, ranging from 6's to 8's day to day. Patient has history of iron deficiency anemia as well as anemia of chronic disease. * Family has refused blood transfusion and requested that patient be able to take her home iron supplementation as they feel it is better absorbed, which is fine. * Continue to monitor hemoglobin and blood counts closely. 3.. Hypertension * Continue Norvasc and monitor blood pressure closely. Blood pressure also variable. 4. Diabetes * Blood sugars variable, ranging from lows in 40s-50s to highs >300. Continue to monitor closely. Consider consulting Dr. Estevez for expertise. 5. Hyponatremia- resolved. * Continue to monitor periodically. Recheck in AM with BMP. 6. Osteoporosis 7. UTI, new diagnosis * UA showed 5-10 WBC with 4+ bacteria. Ceftin initiated and renally dosed. Monitor closely. 8. CKD, stage 4 * Continue to monitor renal function closely - SCr 2.0 (baseline). Recommend follow up with fitness attendant as outpatient to evaluate for upcoming need of fistula. * * 10/16/16 Will need to continue to monitor Hgb closely. Today Hgb is 7.6. Will recheck tomorrow. Will add Lidoderm patch to right hip along with Tylenol for better pain control. Urine culture positive for E-Coli which is pansensitive. Continue with Ceftin for 7 days for coverage, end date 10/21/16. Monitor blood sugars NovoLog 70/38 units twice a day as well as sliding scale. Senna plus and Colace twice a day for ongoing bowel motivation Continue to encourage work with PT and OT for ongoing strengthening and pain control. CHIDI DUVALL APRN October 16, 2016 15:07
--- NOTE | 2016-10-16 17:06 | NUR ---
CM CALL FROM DAUGHTER HENRI, SHE SAID SHE WANTS PT TO GO TO SNU AT [facility]. THAT IS HER #1 CHOICE. SHE SAID SHE WILL ALSO TOUR [facility] IN [place].
[2016-10-16] MEDS: HYDROCODONE/APAP 5 mg/325 mg TABLET PO PRN (17:57)
--- NOTE | 2016-10-16 19:49 | NUR ---
Summary Pt. VS's stable. She is on RA. Pt. transfers x1 with walker and gait belt. She is incontinent at times. Pt. takes meds whole. Pt.'s daughter here to visit pt. at dinner time. Daughter discussed pain med with pt. and encouraged pt. to take stronger pain med. Pt. did agree to take PRN [place] at dinner time. Please see eMAR. Report has been past on to production shift supervisor.
[2016-10-16] MEDS: LIDOCAINE PATCH REMOVAL TOP SCH (21:00)
--- NOTE | 2016-10-16 23:30 | NUR ---
STATUS. PT ALERT AND OX3. ASSIST TO BR USING FWW AND GAITBELT WITH 1 ASSIST. PT AND DTR REPORTS NORCO HAS HELPED. PT CONCERNED ABOUT TAKING TOO MUCH MEDICATION AND HOW IT AFFECTS HER. TYLENOL 650MG GIVEN AT HS FOR 7/10 PAIN LEVEL. SCDS ON WHILE IN BED.
--- NOTE | 2016-10-17 05:04 | NUR ---
Chart Check 24 hour chart check completed
[2016-10-17 05:21] LABS: BASOPHILS % (AUTO) 0.7 % (0-2); EOSINOPHILS # (AUTO) 0.2 T/MM3 (0-0.5); HCT - HEMATOCRIT 22.8 % (36-46); HGB - HEMOGLOBIN 6.8 GM/DL (12-16); LYMPHOCYTES # (AUTO) 0.9 T/MM3 (1-4.8); LYMPHOCYTES % (AUTO) 17.1 % (23-45); MEAN CORPUSCULAR HGB 30.6 UUG (26-34); MEAN CORPUSCULAR HGB CONC(MCHC 29.8 GM/DL (31-37); MEAN CORPUSCULAR VOLUME 102.7 UM3 (80-100); MEAN PLATELET VOLUME 10.3 UM3 (9.4-12.4); MONOCYTES # (AUTO) 0.4 T/MM3 (0-0.8); MONOCYTES % (AUTO) 7.5 % (0-9.0); NEUTROPHILS #(AUTO)-ABSOLUTE 3.9 T/MM3 (1.8-7.7); NEUTROPHILS % (AUTO) 70.7 % (33-66); RED BLOOD COUNT 2.22 M/MM3 (4.00-5.20); WBC - WHITE BLOOD COUNT 5.5 T/MM3 (4.5-11.0)
[2016-10-17] MEDS: ACETAMINOPHEN 325 MG TABLET PO PRN (06:00)
[2016-10-17] MEDS: INSULIN ASPART 100 UNIT/ML SQ PRN ×3 (06:16→15:47)
--- NOTE | 2016-10-17 06:17 | NUR ---
SUMMARY. PT REPORTS HAS SLEPT WELL. CALLS FOR BR ASSIST. AMBULATES USING FWW AND GAITBELT WITH 1 ASSIST AND CUEING TO TAKE SLOW DEEP BREATH. PT INCONT OF BLADDER X1 A. TOTAL ASSIST WITH PULLUP CHANGE. MAKES NEEDS KNOWN. PT HAS INCREASED PAIN WITH MOVEMENT. PT GIVEN TYLENOL 650MG PO AT 06 FOR 10/10 PAIN. AND ICE PACK TO RT LOW BACK/HIP.
[2016-10-17] MEDS: INSULIN NPH SQ SCH ×2 (08:36→17:54)
[2016-10-17] MEDS: ASPART SQ SCH ×2 (08:36→17:54)
[2016-10-17] MEDS: DOCUSATE SODIUM 100 MG CAPSULE PO SCH ×2 (08:36→20:48)
[2016-10-17] MEDS: CEFUROXIME AXETIL 500 MG TABLET PO SCH (08:36)
[2016-10-17] MEDS: SENNA + DOCUSATE TAB PO SCH ×2 (08:37→20:48)
[2016-10-17] MEDS: VIT C PO SCH (08:37)
[2016-10-17] MEDS: [UNRECOGNIZED DRUG - OTHER] PO SCH (08:37)
[2016-10-17] MEDS: AMLODIPINE 5 MG TABLET PO SCH (08:37)
[2016-10-17 08:39] VITALS: BP 159/73; PULSE 82; RESP 20; TEMP 98; O2SAT 93
[2016-10-17] MEDS: HYDROCODONE/APAP 5 mg/325 mg TABLET PO PRN ×3 (08:39→22:48)
[2016-10-17] MEDS: LIDOCAINE 5% PATCH TOP SCH (09:59)
[2016-10-17 10:00] VITALS: RESP 18
--- NOTE | 2016-10-17 11:17 | STDAILYN ---
ST Daily Note Date/Time DATE: 10/17/16 TIME: 11:05 Subjective Comment Pt was alert and cooperative. Nursing had just repositioned her in the recliner. She complained of pain medication effecting her memory at times. Perseveration noted in conversational responses. Orientations: Person, Alert, Cooperative Chief Complaint: memory loss Pain: Yes (complained of her bottom hurting but had already had pain meds) *Speech Therapy Impressions Pt will repeat a 5 word list of functional words/phrases related to activities of daily living immediately after presentation with minimal cues and 80% accuracy. Pt was 0/5 on repetition of 4 words despite multiple repetitions. She repeat 3 words with 1 repetition and 15/20 accuracy. Pt will identify items within a category and/or state the category's class during a structured task requiring minimal cues with 85% accuracy. Pt was given 3 related word and asked to name their category. Her initial responses were vague and perseverative "they go together". With mild cue she named category with 14/20. Pt will recall ADLS with minimal cues with 80% accuracy. Pt had difficulty identifying why she was in the hospital and daily events (4/ 10 accuracy). Pt will use external memory aids and compensatory strategies to recall routine, personal information and recent events to improvement orientation to time/place with 85% accuracy given minimal cues. CHIEF VENDOR QUALITY provided information about using calendars, phone and aids to recall appts , visitors, therapy goals. She reported that her daughter kept track of all appts at home. Pt will demonstrate recall of functional information following a short-term delay with minimal cues in order to increase functional integration into environment with 80% accuracy. Pt listed to 2 sentence story and answered questions with 8/15 accuracy. With cue she recalled additional 6/15. Pt was given a problem situation and identified safe solution with 5/10 accuracy. Speech was intelligible and perseverative. Moderate cue needed to keep pt's attention on task. ST Treatment Plan: Cognitive Linguistic Tx ST Treatment Plan Frequency: five times per week Treatment Plan Duration: one week Plan of Care Comment: Continue POC Start Treatment 1: 10:22 Stop Treatment 1: 11:00 Treatment Duration : ST Treatment Charge: Speech Treatment Minutes of Individual Therapy: 38 JEANETTE ALMAZAN MS CCC-CHIEF VENDOR QUALITY October 17, 2016 11:15
--- NOTE | 2016-10-17 12:38 | PDIRUTEAM ---
Multidisciplinary Team Meeting Nursing Hx Incontinence: Yes (at times) Bladder Goal: 7+ Complete [place] Y/N: No Bladder Continent or Incontine: Incontinent Incontinent Product Used: Pull-up Number of Times Incontinent of: 0 Cleaning Ability-Bladder: 4 Minimal Assistance Bladder Incontinence Managemen: 1 Total Assistance Bowel Goal: 7+ Complete [place] Colostomy Y/N: No Bowel Incontinent/Continent: Continent Bowel Number of Accidents: 0 Number of times Incontinent of: 0 Cleaning Ability-Bowel: 1 Total Assistance Bowel Incontinence Management: 1 Total Assistance Toileting Ability: 3 Moderate Assistance Vital Signs Vital Signs Date Time Temp Pulse Resp B/P Pulse Ox O2 Delivery O2 Flow Rate FiO2 10/17/16 10:00 18 10/17/16 08:39 98.0 82 159/73 93 Nasal Cannula Current Medications Current Medications Medications (Trade) Dose Ordered Sig/Nikita Route PRN Reason Start Time Stop Time Status Last Admin Dose Admin Docusate Sodium (Colace) 100 mg BID PO 10/11/16 21:00 10/17/16 08:36 Acetaminophen (Tylenol Regular Strength) 1-2 tabs Q5H PRN PO DISCOMFORT 10/11/16 19:15 10/17/16 06:00 Amlodipine Besylate (Norvasc) 5 mg DAILY PO 10/12/16 09:00 10/17/16 08:37 Acetaminophen/ Hydrocodone Bitart ([place] 5/325) 1-2 po q 4 Q4HR PRN PO PAIN 10/11/16 19:15 10/17/16 08:39 Insulin Aspart (Novolog 70/30) 8 unit 0745,1715 SQ 10/12/16 07:45 10/13/16 07:43 DC 10/12/16 17:53 Insulin Aspart (Novolog) SS PRN SQ 10/11/16 21:45 10/13/16 20:23 DC 10/12/16 12:40 Insulin Human Regular (Novolin R) SS PRN SQ 10/13/16 07:45 10/14/16 06:37 DC 10/13/16 21:14 Ferrous Sulfate (Feosol) 324 mg BIDWM PO 10/13/16 09:30 10/14/16 14:28 DC 10/14/16 08:53 Cefuroxime Axetil (Ceftin) 500 mg BID PO 10/14/16 09:00 10/14/16 09:36 DC 10/14/16 08:53 Insulin Aspart (Novolog 70/30) 8 unit 0745,1715 SQ 10/14/16 07:45 10/17/16 08:36 Insulin Aspart (Novolog) SS PRN SQ 10/14/16 06:15 10/14/16 06:37 DC 10/14/16 06:09 Insulin Aspart (Novolog) SS PRN SQ 10/14/16 06:45 10/17/16 12:24 Cefuroxime Axetil (Ceftin) 500 mg DAILY PO 10/15/16 09:00 10/17/16 08:36 Senna/Docusate Sodium (Senna Plus) 1 tab BID PO 10/14/16 21:00 10/17/16 08:37 Non-Formulary Medication 1 DAILY PO 10/15/16 09:00 10/17/16 08:37 Lidocaine (Lidoderm) 1 patch DAILY TOP 10/16/16 13:15 10/17/16 09:59 Comments Daughter spoke with her and she is willing to try low dose narcotics. Speech--cognitive eval --failed. easily distracted, focuses on her pain, diff to redirect. Not safe to go home. Physical Therapy Bed Transfer Ability: 3 Moderate Assistance Bed Transfer Assistance Needed: 1 Person Bed FIM Score Reason: pain Chair Transfer Ability: 3 Moderate Assistance Chair Transfer Assistance Need: 1 Person Overall Wheelchair Transfer Ab: 3 Moderate Assistance Wheelchair Transfer Assistance: 1 Person Overall Toilet / Commode Trans: 4 Minimal Assistance Ambulation Ability: 4 Minimal Assistance Ambulation Assistance Needed: 1 Person Walk FIM Score Reason: The pt walked 15ft x3,54ft and 62ft with the fww and 4/7 assist.The FIM score is 2/7 assist due to distance. Ambulation Distance: 158 Comments Safety issues, very anxious about pain. Occupational Therapy Grooming Ability: 5 Supervision/Setup Bathing Ability: 5 Supervision/Setup Upper Body Dressing Ability: 5 Supervision/Setup Lower Body Dressing Ability: 3 Moderate Assistance Lower Body Dressing Assistance: 1 Person Toileting Assistance Needed: 1 Person Comments Recommending [facility] care. Care Plan IRU Discharge Disposition: Home Health Service Interventions/Goals Likely underlying dementia, however anemia may be exacerbating it. Anemia needs resolution prior to discharge. lidoderm patch to be scheduled. CYNTHIA QUEZADA MD October 17, 2016 12:37
--- NOTE | 2016-10-17 15:00 | NUR ---
Status VS's stable. Pt. is an assist x1 with walker and gait belt. Right Pelvic pain seems to be doing better today. Pt. has been open to taking PRN [place] and the Lidoderm patch this A.M. since talking with daughter last night. Pt. has rated right pelvic pain a 7-8/10 this shift. PRN [place] given and Lidoderm patch applied. Please see eMAR. Ice pack implemented for comfort. Pt. is incontinent of urine at times. Will continue to monitor.
[2016-10-17] MEDS ORDERED: NORMAL SALINE 500 ML IV SCH (15:07)
[2016-10-17] MEDS ORDERED: DiphenhydrAMINE 25 MG CAPSULE PO ONE (15:15)
--- NOTE | 2016-10-17 15:37 | PNPDOC ---
Subjective Date DATE: 10/17/16 TIME: 15:33 Subjective Melvi is seen today while sitting up in the chair. She is pale and weak in appearance. She denies feeling short of breath or having chest pain. She does continue to complain of right lateral hip/pelvis discomfort. She had originally refused Lidoderm patch last evening, however, did agree to it today. Hemoglobin today did drop down to 6.8. Discussed in great detail both with patient and with daughter, Chloe regarding pelvis fractures, bleeding, risk of anemia on strength, oxygenation and rehabilitation. Nursing Staff reports some intermittent episodes of confusion. Objective Vital Signs Vital signs Vital Signs Date Time Temp Pulse Resp B/P Pulse Ox O2 Delivery O2 Flow Rate FiO2 10/17/16 10:00 18 10/17/16 08:39 98.0 82 159/73 93 Nasal Cannula Height (Feet): 5 Height (Inches): 7.00 Weight (Kilograms): 50.000 General General Appearance: Alert, Orientated x 1, Cooperative, No Acute Distress Eyes (Brief) Eyes: FOUND: EOMI ENMT (Brief) ENMT: FOUND: mucosa moist, normal dentition, NOT FOUND: pharnyx erythema Neck (Brief) Neck: FOUND: midline, NOT FOUND: adenopathy, carotid bruits, tracheal deviation Respiratory (Brief) Respiratory: FOUND: clear all tiwari, equal bilaterally, NOT FOUND: wheezes Cardiovascular (Brief) Cardiac: FOUND: regular rate, regular rhythm, NOT FOUND: murmur, pedal edema Capillary Refill: <2 sec Abdomen (Brief) Abdominal: FOUND: BS normo active x4, soft, NOT FOUND: distended, tender Lymphatic (Brief) Lymphatic: NOT FOUND: adenopathy Musculoskeletal (Brief) Musculoskeletal: FOUND: tenderness (pelvis, right lateral hip pain) Integumentary (Brief) Integumentary: FOUND: dry, pink, warm Neurologic (Brief) Neurological: FOUND: cranial 2-12 intact Psychiatric (Brief) Psychiatric: FOUND: alert, attentive, normal affect, oriented Laboratory Laboratory Laboratory Tests 10/16/16 04:38 Laboratory Tests 10/16/16 04:38 10/17/16 04:53 Microbiology Microbiology Microbiology Date/Time Source Procedure Growth Status 10/14/16 17:29 Urine, Voided-Not Cc-Midstream Urine Culture - Final Escherichia Coli Complete Assessment & Plan Problems: (1) Macrocytic anemia Status: Chronic Assessment & Plan: History of anemia of chronic disease and iron deficiency anemia. Baseline hemoglobin has been 9-10. 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 Zelaya regarding anemia. Reviewed with patient and daughter regarding risk of anemia and fracture this will have on her strength and rehabilitation. Both daughter and patient agreed to a blood transfusion of 1 unit today. Contacted blood bank in the lab to confirm this. Placed Type and screen,1 unit of packed red blood cells, leuko-reduced is ordered to administer today. Will need to continue to monitor Hgb closely. Will add Lidoderm patch to right hip along with Tylenol for better pain control. Continue with Ceftin for 7 days for coverage, end date 10/21/16. Monitor blood sugars NovoLog 70/38 units twice a day as well as sliding scale. Continue to encourage work with PT and OT for ongoing strengthening and pain control. Code Status Do Not Resuscitate Hospital Course Summary Disclaimer The hospital course summary below is not to be considered part of the above Progress Note. Hospital Course Summary 10/14: Evelyne. 1. Pelvic fracture secondary to falls * Continue to encourage participation in therapies to improve strength and functional abilities. * Provide a safe and supportive environment. 2. Macrocytic anemia * Hemoglobin variable throughout admission, ranging from 6's to 8's day to day. Patient has history of iron deficiency anemia as well as anemia of chronic disease. * Family has refused blood transfusion and requested that patient be able to take her home iron supplementation as they feel it is better absorbed, which is fine. * Continue to monitor hemoglobin and blood counts closely. 3.. Hypertension * Continue Norvasc and monitor blood pressure closely. Blood pressure also variable. 4. Diabetes * Blood sugars variable, ranging from lows in 40s-50s to highs >300. Continue to monitor closely. Consider consulting Dr. Estevez for expertise. 5. Hyponatremia- resolved. * Continue to monitor periodically. Recheck in AM with BMP. 6. Osteoporosis 7. UTI, new diagnosis * UA showed 5-10 WBC with 4+ bacteria. Ceftin initiated and renally dosed. Monitor closely. 8. CKD, stage 4 * Continue to monitor renal function closely - SCr 2.0 (baseline). Recommend follow up with riveting machine operator as outpatient to evaluate for upcoming need of fistula. * * 10/16/16 Will need to continue to monitor Hgb closely. Today Hgb is 7.6. Will recheck tomorrow. Will add Lidoderm patch to right hip along with Tylenol for better pain control. Urine culture positive for E-Coli which is pansensitive. Continue with Ceftin for 7 days for coverage, end date 10/21/16. Monitor blood sugars NovoLog 70/38 units twice a day as well as sliding scale. Senna plus and Colace twice a day for ongoing bowel motivation Continue to encourage work with PT and OT for ongoing strengthening and pain control. 10/17/16 30 minutes of time was spent discussing with patient, daughter, grain blender and Dr. Zelaya regarding anemia. Reviewed with patient and daughter regarding risk of anemia and fracture this will have on her strength and rehabilitation. Both daughter and patient agreed to a blood transfusion of 1 unit today. Contacted blood bank in the lab to confirm this. Placed Type and screen,1 unit of packed red blood cells, leuko-reduced is ordered to administer today. Will need to continue to monitor Hgb closely. Will add Lidoderm patch to right hip along with Tylenol for better pain control. Continue with Ceftin for 7 days for coverage, end date 10/21/16. Monitor blood sugars NovoLog 70/38 units twice a day as well as sliding scale. Continue to encourage work with PT and OT for ongoing strengthening and pain control. CHIDI DUVALL APRN October 17, 2016 15:36
[2016-10-17 16:00] VITALS: BP 155/69; PULSE 76; RESP 20; TEMP 97.8; O2SAT 100
--- NOTE | 2016-10-17 16:00 | NUR ---
Blood/Hgb Hgb today noted to be 6.8. Pt. is noted to have Hx. of anemia. Pt. does not report SOA and reports she does not feel more fatigued than usual. VS's stable. Pt. is on RA. Jackie Oliva APRN, aware and she spoke with daughter and pt. about blood transfusion. Received call from Jackie reporting both pt. and daughter are okay with transfusing 1 unit of blood. Educated pt. on process. Notified pt. daughter is aware. Consent is signed. Will continue to monitor.
--- NOTE | 2016-10-17 16:02 | NUR ---
CM CALL FROM DAUGHTER HENRI. DISCUSSED DC PLAN, AND RELAYED TEAM'S RECOMMENDATION THAT PT IS READY TO DC FROM A THERAPY POINT OF VIEW BUT MEDICALLY NOT READY. SHE SAID HER FIRST CHOICE IS [facility], THEN SECOND CHOICE IS [facility] [place] FOR SNU. SHE GAVE PERMISSION TO OPEN THE PORTALS. SHE SAID SHE REALIZES THE PT NEEDS SUPERVISION, SO SHE IS DECIDING WHAT SHE WANTS TO DO ABOUT THAT. SHE SAID SHE DOES HAVE MEDICAL LEAVE AVAILABLE TO HER FROM WORK SHE CAN USE IF NEEDED. DISCUSSED CARE ASSESSMENT AND SHE WAS AGREEABLE TO THIS. CALLED ALEJO WITH [facility]; REQUESTED A CARE ASSESSMENT. LEFT MESSAGE WITH RORY WITH PM. OPENED PORTAL.
--- NOTE | 2016-10-17 18:01 | NUR ---
CM CALL FROM RORY WITH PM; SHE SAID THEY ARE FULL. THIS WORKER WILL FOLLOW UP WITH [facility], THEN.
--- NOTE | 2016-10-17 18:22 | NUR ---
Blood Blood transfusing at this time per orders. VS's stable. Transfusion infusing at 65cc/hr for first 15 minutes. This RN is present in pt.'s room to monitor pt. Will continue to monitor.
--- NOTE | 2016-10-17 19:22 | NUR ---
Status VS's continue to be stable. Pt. reports she feels well and denies pain at this time. No s/s of allergic reaction noted. Will pass on report to machine stemmer. Addendum: 10/17/16 at 2019 by JUAN R DUMONT RN transfusion increased to 100cc/hr
[2016-10-17 20:36] VITALS: BP 150/73; PULSE 78; RESP 16; TEMP 97.9; O2SAT 93
[2016-10-17] MEDS: LIDOCAINE PATCH REMOVAL TOP SCH (20:49)
[2016-10-17 21:22] VITALS: PULSE 78; RESP 16
[2016-10-17 22:38] LABS: HGB - HEMOGLOBIN 10.5 GM/DL (12-16)
[2016-10-18 05:08] LABS: BASOPHILS % (AUTO) 0.6 % (0-2); EOSINOPHILS # (AUTO) 0.2 T/MM3 (0-0.5); EOSINOPHILS % (AUTO) 3.7 % (0-4); HCT - HEMATOCRIT 28.7 % (36-46); HGB - HEMOGLOBIN 8.7 GM/DL (12-16); IMMATURE GRANULOCYTE # (AUTO) 0.01 T/MM3 (0.00-0.03); IMMATURE GRANULOCYTE % (AUTO) 0.2 % (0.0-0.5); LYMPHOCYTES # (AUTO) 0.9 T/MM3 (1-4.8); LYMPHOCYTES % (AUTO) 13.6 % (23-45); MEAN CORPUSCULAR HGB 30.3 UUG (26-34); MEAN CORPUSCULAR HGB CONC(MCHC 30.3 GM/DL (31-37); MEAN PLATELET VOLUME 10.4 UM3 (9.4-12.4); MONOCYTES # (AUTO) 0.6 T/MM3 (0-0.8); MONOCYTES % (AUTO) 8.9 % (0-9.0); NEUTROPHILS #(AUTO)-ABSOLUTE 4.6 T/MM3 (1.8-7.7); RED BLOOD COUNT 2.87 M/MM3 (4.00-5.20); WBC - WHITE BLOOD COUNT 6.3 T/MM3 (4.5-11.0)
[2016-10-18 05:27] LABS: ANION GAP 10 MEQ/L (5-15); BUN/CREATININE RATIO 29 RATIO (6-26); CALCIUM 8.6 MG/DL (8.4-10.2); CHLORIDE 104 MEQ/L (98-107); CO2 - CARBON DIOXIDE 26 MEQ/L (22-30); CREATININE 2.2 MG/DL (0.7-1.2); GLOMERULAR FILTRATION RATE 21; GLUCOSE 251 MG/DL (65-110); POTASSIUM 5.2 MEQ/L (3.6-5); SODIUM 140 MEQ/L (134-144)
--- NOTE | 2016-10-18 05:48 | NUR ---
Summary Unit of blood completed with no adverse reactions. Hgb post transfusion was 10.5. This AM it was 8.7. Pt up to restroom a few times with uncontrolled pain when up. [place] given. Pt has been incontinent of urine. SCDs worn for a while, then removed per her request due to increased pain. Blood glucose last night was 90, This AM is was 251. 3 units ss insulin to be given. She is in bed with side rails up times two, bed alarm on and call light within reach.
[2016-10-18] MEDS: HYDROCODONE/APAP 5 mg/325 mg TABLET PO PRN ×2 (06:18→12:35)
[2016-10-18] MEDS: INSULIN ASPART 100 UNIT/ML SQ PRN (06:18)
[2016-10-18 08:00] VITALS: BP 165/80; PULSE 89; RESP 16; TEMP 98; O2SAT 99
[2016-10-18] MEDS: INSULIN NPH SQ SCH ×2 (08:36→17:34)
[2016-10-18] MEDS: ASPART SQ SCH ×2 (08:36→17:34)
[2016-10-18] MEDS: DOCUSATE SODIUM 100 MG CAPSULE PO SCH ×2 (08:37→21:00)
[2016-10-18] MEDS: [UNRECOGNIZED DRUG - OTHER] PO SCH (08:37)
[2016-10-18] MEDS: CEFUROXIME AXETIL 500 MG TABLET PO SCH (08:37)
[2016-10-18] MEDS: VIT C PO SCH (08:37)
[2016-10-18] MEDS: AMLODIPINE 5 MG TABLET PO SCH (08:37)
[2016-10-18] MEDS: LIDOCAINE 5% PATCH TOP SCH (08:38)
[2016-10-18] MEDS: SENNA + DOCUSATE TAB PO SCH ×2 (08:39→21:00)
[2016-10-18] MEDS ORDERED: LIDOCAINE 5% PATCH TOP SCH (09:00)
--- NOTE | 2016-10-18 11:43 | STDAILYN ---
ST Daily Note Date/Time DATE: 10/18/16 TIME: 11:19 Subjective Comment Patient was greeted in the dining room following breakfast. Patient was in a pleasant mood and had no acute c/o pain or fatigue. Graduate clinician provided therapy while being supervised by [employer] Painting. Orientations: Person, Time Chief Complaint: Right Sided Pelvic Fracture; Confusion Pain: No (Patient reported having no pain) Was Patient Education Provided: Yes Person(s) Educated: Patient Instruction Understanding Demo: Pt. verbalizes understand Education Comment Patient was educated on treatment plan. Patient verbalized understanding. *Speech Therapy Impressions USP GOAL: Pt will use appropriate memory strategies to schedule and recall weekly activities, express needs, and recall names to maintain safety and participate socially in functional living environment SHORT TERM GOALS: Pt will repeat a 5 word list of functional words/phrases related to activities of daily living immediately after presentation with minimal cues and 80% accuracy. 3 word list: 5/5 100% accuracy 4 word list: 5/5 100% accuracy 5 word list: 3/5 60% accuracy Patient required maximum verbal and contextual cues during this structured activity. Pt will identify items within a category and/or state the category's class during a structured task requiring minimal cues with 85% accuracy. Patient was instructed to name as many items within a given category. Memory strategies were re-explained to the patient. Fruit: 5 Veggies: 5 Colors: 7 Animals: Pets: 2; Farm: 4; Zoo: 5 Patient correctly grouped items into the correct category. Patient became distracted from background noise. Patient required moderate to maximum prompting via phonemic, gestural, verbal, and contextual cues. Pt will recall ADLS with minimal cues with 80% accuracy. Patient recalled morning activities including getting up for breakfast and eating breakfast. Patient demonstrated difficulty recalling exactly what she had just eaten. Pt will use external memory aids and compensatory strategies to recall routine, personal information and recent events to improvement orientation to time/place with 85% accuracy given minimal cues. Not targeted during therapy Pt will demonstrate recall of functional information following a short-term delay with minimal cues in order to increase functional integration into environment with 80% accuracy. Not targeted during therapy ST Treatment Plan: Memory Retraining ST Treatment Plan Frequency: five times per week Treatment Plan Duration: one week Plan of Care Comment: Continue Plan of Care Start Treatment 1: 09:14 Stop Treatment 1: 09:44 Treatment Duration : ST Treatment Charge: Speech Treatment Minutes of Individual Therapy: 30 ST FIM Comprehension Ability: 3 Moderate Assistance Social Interaction: 5 Supervision/Setup Problem Solvin Minimal Assistance Memory: 3 Moderate Assistance Expression Ability: 5 Supervision/Setup HOWARD FREEMAN October 18, 2016 11:23
--- NOTE | 2016-10-18 12:58 | PNPDOC ---
Subjective Date DATE: 10/18/16 TIME: 12:54 Subjective Melvi is seen today during lunch. She is alert and reports that her lunch is not what she ordered. In regards to the blood transfusion she received yesterday she does feel that is has improved her strength. She denies having any pain currently or feeling short of breath. Her facial color is much less pale today and her lips are pink. BP 165/80 this morning. Objective Vital Signs Vital signs Vital Signs Date Time Temp Pulse Resp B/P Pulse Ox O2 Delivery O2 Flow Rate FiO2 10/18/16 08:00 98.0 89 16 165/80 99 Room Air Height (Feet): 5 Height (Inches): 7.00 Weight (Kilograms): 50.000 General General Appearance: Alert, Orientated x 1, Cooperative, No Acute Distress Eyes (Brief) Eyes: FOUND: EOMI ENMT (Brief) ENMT: FOUND: mucosa moist, normal dentition, NOT FOUND: pharnyx erythema Neck (Brief) Neck: FOUND: midline, NOT FOUND: adenopathy, carotid bruits, tracheal deviation Respiratory (Brief) Respiratory: FOUND: clear all tiwari, equal bilaterally, NOT FOUND: wheezes Cardiovascular (Brief) Cardiac: FOUND: regular rate, regular rhythm, NOT FOUND: murmur, pedal edema Capillary Refill: <2 sec Abdomen (Brief) Abdominal: FOUND: BS normo active x4, soft, NOT FOUND: distended, tender Lymphatic (Brief) Lymphatic: NOT FOUND: adenopathy Musculoskeletal (Brief) Musculoskeletal: NOT FOUND: tenderness Integumentary (Brief) Integumentary: FOUND: dry, pink, warm Neurologic (Brief) Neurological: FOUND: cranial 2-12 intact Psychiatric (Brief) Psychiatric: FOUND: alert, attentive, normal affect, oriented Laboratory Laboratory Laboratory Tests 10/18/16 04:41 Laboratory Tests 10/17/16 04:53 10/17/16 22:30 10/18/16 04:41 Assessment & Plan Problems: (1) Macrocytic anemia Status: Chronic Assessment & Plan: History of anemia of chronic disease and iron deficiency anemia. Baseline hemoglobin has been 9-10. 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 She does have known chronic anemia with baseline 9-10. Will continue to monitor regular CBC. Continue with Lidoderm patch to right hip along with Tylenol for better pain control. Continue with Ceftin for 7 days for coverage, end date 10/21/16. Monitor blood sugars NovoLog 70/38 units twice a day as well as sliding scale. Continue to encourage work with PT and OT for ongoing strengthening and pain control. Code Status Do Not Resuscitate Hospital Course Summary Disclaimer The hospital course summary below is not to be considered part of the above Progress Note. Hospital Course Summary 10/14: Evelyne. 1. Pelvic fracture secondary to falls * Continue to encourage participation in therapies to improve strength and functional abilities. * Provide a safe and supportive environment. 2. Macrocytic anemia * Hemoglobin variable throughout admission, ranging from 6's to 8's day to day. Patient has history of iron deficiency anemia as well as anemia of chronic disease. * Family has refused blood transfusion and requested that patient be able to take her home iron supplementation as they feel it is better absorbed, which is fine. * Continue to monitor hemoglobin and blood counts closely. 3.. Hypertension * Continue Norvasc and monitor blood pressure closely. Blood pressure also variable. 4. Diabetes * Blood sugars variable, ranging from lows in 40s-50s to highs >300. Continue to monitor closely. Consider consulting Dr. Estevez for expertise. 5. Hyponatremia- resolved. * Continue to monitor periodically. Recheck in AM with BMP. 6. Osteoporosis 7. UTI, new diagnosis * UA showed 5-10 WBC with 4+ bacteria. Ceftin initiated and renally dosed. Monitor closely. 8. CKD, stage 4 * Continue to monitor renal function closely - SCr 2.0 (baseline). Recommend follow up with it consultant as outpatient to evaluate for upcoming need of fistula. * * 10/16/16 Will need to continue to monitor Hgb closely. Today Hgb is 7.6. Will recheck tomorrow. Will add Lidoderm patch to right hip along with Tylenol for better pain control. Urine culture positive for E-Coli which is pansensitive. Continue with Ceftin for 7 days for coverage, end date 10/21/16. Monitor blood sugars NovoLog 70/38 units twice a day as well as sliding scale. Senna plus and Colace twice a day for ongoing bowel motivation Continue to encourage work with PT and OT for ongoing strengthening and pain control. 10/17/16 30 minutes of time was spent discussing with patient, daughter, pool manager and Dr. Zelaya regarding anemia. Reviewed with patient and daughter regarding risk of anemia and fracture this will have on her strength and rehabilitation. Both daughter and patient agreed to a blood transfusion of 1 unit today. Contacted blood bank in the lab to confirm this. Placed Type and screen,1 unit of packed red blood cells, leuko-reduced is ordered to administer today. Will need to continue to monitor Hgb closely. Will add Lidoderm patch to right hip along with Tylenol for better pain control. Continue with Ceftin for 7 days for coverage, end date 10/21/16. Monitor blood sugars NovoLog 70/38 units twice a day as well as sliding scale. Continue to encourage work with PT and OT for ongoing strengthening and pain control. CHIDI DUVALL APRN October 18, 2016 12:58
--- NOTE | 2016-10-18 15:30 | NUR ---
CM REFERRAL SENT TO [facility].
--- NOTE | 2016-10-18 15:34 | NUR ---
Malnutrition Screen F/U Diet: CC 1999 Patient's appetite has increased since admission. Patient has an average intake of 1927kcals/day for 10/16-10/17 and has exceeded recommended calorie needs to maintain weight. Patient requested mighty shakes be discontinued. CHRIS notified to D/C darrell moss. RD available @ [phone] Addendum: 10/18/16 at [address] Student charting reviewed by Laborer Drying Department.
[2016-10-18 15:55] VITALS: BP 154/76; PULSE 75; RESP 18; TEMP 96; O2SAT 95
--- NOTE | 2016-10-18 16:50 | NUR ---
CM PER PHONE CONVERSATION WITH DANE, PT IS ACCEPTED FOR SNF AT [facility]. THEY CAN TAKE PT FOR ADMISSION ON SATURDAY IF READY FOR DC.
--- NOTE | 2016-10-18 17:18 | NUR ---
CM SPOKE WITH PT AND DAUGHTER, UPDATED THEM ON POSSIBLE RELEASE DATE TOMORROW, IF MEDICALLY STABLE. BOTH WERE AGREEABLE. DAUGHTER STATED SHE WOULD LIKE TO FIND OUT IF [facility] HAS ANY AVAILABILITY, AND GAVE PERMISSION TO FAX RECORDS.
--- NOTE | 2016-10-18 18:10 | PNPDOC ---
IRU Subjective Date DATE: 10/17/16 TIME: 16:15 Subjective Patient working with physical therapy and occupational therapy, was very cooperative, making progress. IRU Objective Vital Signs Vital signs Vital Signs Date Time Temp Pulse Resp B/P Pulse Ox O2 Delivery O2 Flow Rate FiO2 10/18/16 15:55 96.0 75 18 154/76 95 Room Air Height (Feet): 5 Height (Inches): 7.00 Weight (Kilograms): 50.600 General General Appearance: Alert, Orientated x 2 Respiratory (Brief) Respiratory: FOUND: clear all tiwari, equal bilaterally, NOT FOUND: rales, wheezes Cardiovascular (Brief) Cardiac: FOUND: regular rate, regular rhythm, NOT FOUND: pedal edema Laboratory Laboratory Laboratory Tests Test 10/16/16 21:41 10/17/16 04:53 10/17/16 10:23 10/17/16 15:00 Glucometer 232mg/dL 244mg/dL 155mg/dL White Blood Count 5.5T/MM3 Red Blood Count 2.22M/MM3 Hemoglobin 6.8GM/DL Hematocrit 22.8% Mean Corpuscular Volume 102.7UM3 Mean Corpuscular Hemoglobin 30.6UUG Mean Corpuscular Hemoglobin Concent 29.8GM/DL RDW Standard Deviation 45.5FL Platelet Count 321T/MM3 Mean Platelet Volume 10.3UM3 Immature Granulocyte % (Auto) 0.0% Neutrophils (%) (Auto) 70.7% Lymphocytes (%) (Auto) 17.1% Monocytes (%) (Auto) 7.5% Eosinophils (%) (Auto) 4.0% Basophils (%) (Auto) 0.7% Absolute Immature Granulocyte (auto 0.00T/MM3 Absolute Neutrophils (auto) 3.9T/MM3 Absolute Lymphocytes (auto) 0.9T/MM3 Absolute Monocytes (auto) 0.4T/MM3 Absolute Eosinophils (auto) 0.2T/MM3 Absolute Basophils (auto) 0.0T/MM3 Test 10/17/16 20:44 10/17/16 22:30 10/18/16 04:41 10/18/16 10:43 Glucometer 90mg/dL 95mg/dL Hemoglobin 10.5GM/DL 8.7GM/DL White Blood Count 6.3T/MM3 Red Blood Count 2.87M/MM3 Hematocrit 28.7% Mean Corpuscular Volume 100.0UM3 Mean Corpuscular Hemoglobin 30.3UUG Mean Corpuscular Hemoglobin Concent 30.3GM/DL RDW Standard Deviation 53.3FL Platelet Count 310T/MM3 Mean Platelet Volume 10.4UM3 Immature Granulocyte % (Auto) 0.2% Neutrophils (%) (Auto) 73.0% Lymphocytes (%) (Auto) 13.6% Monocytes (%) (Auto) 8.9% Eosinophils (%) (Auto) 3.7% Basophils (%) (Auto) 0.6% Absolute Immature Granulocyte (auto 0.01T/MM3 Absolute Neutrophils (auto) 4.6T/MM3 Absolute Lymphocytes (auto) 0.9T/MM3 Absolute Monocytes (auto) 0.6T/MM3 Absolute Eosinophils (auto) 0.2T/MM3 Absolute Basophils (auto) 0.0T/MM3 Turbidity < 20 Sodium Level 140MEQ/L Potassium Level 5.2MEQ/L Chloride Level 104MEQ/L Carbon Dioxide Level 26MEQ/L Anion Gap 10MEQ/L Blood Urea Nitrogen 63.0MG/DL Creatinine 2.2MG/DL Glomerular Filtration Rate Calc 21 BUN/Creatinine Ratio 29RATIO Glucose Level 251MG/DL Calculated Osmolality 295MOSM/KG Calcium Level 8.6MG/DL Icterus Index < 2 Chemistry Specimen Hemolysis < 15 Test 10/18/16 14:43 Glucometer 113mg/dL Assessment & Plan Problems: (1) Myopathy Assessment & Plan: Patient improving strength and stamina. Working well with physical therapy and occupational therapy. (2) Falls Status: Acute Assessment & Plan: Following safety precautions, using walker. Staff working with her. Continue with current plan. (3) Pubic ramus fracture Status: Acute Assessment & Plan: This is a stable fracture, patient is working to increase strength due to lost muscle tone and myopathy. (4) CKD (chronic kidney disease) stage 4, GFR 15-29 ml/min Status: Chronic (5) DM2 (diabetes mellitus, type 2) Status: Chronic Qualifiers: Diabetes mellitus complication status: with kidney complications Diabetes mellitus complication detail: with chronic kidney disease Diabetes mellitus prison insulin use: with exterminator termite use Chronic kidney disease stage: stage 4 (severe) Qualified Codes: E11.22 - Type 2 diabetes mellitus with diabetic chronic kidney disease; N18.4 - Chronic kidney disease, stage 4 (severe ); Z79.4 - custodial (current) use of insulin Assessment & Plan: Managed by medical (6) HTN (hypertension) Status: Chronic Code Status Do Not Resuscitate Interventions to Obtain Goals PT Treatment Plan: Therapeutic Exercise, Gait Training, Functional Activities , Patient/Family Education, Balance/Proprioception OT Treatment Plan: ADL's (basic care), Ther. Exercise for ADL's, UE Functional Training, Balance Training, Pt./Family Education, IADL's ST Treatment Plan: Memory Retraining Hospital Course Summary Disclaimer The hospital course summary below is not to be considered part of the above Progress Note. Hospital Course Summary 10/14: Evelyne. 1. Pelvic fracture secondary to falls * Continue to encourage participation in therapies to improve strength and functional abilities. * Provide a safe and supportive environment. 2. Macrocytic anemia * Hemoglobin variable throughout admission, ranging from 6's to 8's day to day. Patient has history of iron deficiency anemia as well as anemia of chronic disease. * Family has refused blood transfusion and requested that patient be able to take her home iron supplementation as they feel it is better absorbed, which is fine. * Continue to monitor hemoglobin and blood counts closely. 3.. Hypertension * Continue Norvasc and monitor blood pressure closely. Blood pressure also variable. 4. Diabetes * Blood sugars variable, ranging from lows in 40s-50s to highs >300. Continue to monitor closely. Consider consulting Dr. Estevez for expertise. 5. Hyponatremia- resolved. * Continue to monitor periodically. Recheck in AM with BMP. 6. Osteoporosis 7. UTI, new diagnosis * UA showed 5-10 WBC with 4+ bacteria. Ceftin initiated and renally dosed. Monitor closely. 8. CKD, stage 4 * Continue to monitor renal function closely - SCr 2.0 (baseline). Recommend follow up with concentrator operator as outpatient to evaluate for upcoming need of fistula. * * 10/16/16 Will need to continue to monitor Hgb closely. Today Hgb is 7.6. Will recheck tomorrow. Will add Lidoderm patch to right hip along with Tylenol for better pain control. Urine culture positive for E-Coli which is pansensitive. Continue with Ceftin for 7 days for coverage, end date 10/21/16. Monitor blood sugars NovoLog 70/38 units twice a day as well as sliding scale. Senna plus and Colace twice a day for ongoing bowel motivation Continue to encourage work with PT and OT for ongoing strengthening and pain control. 10/17/16 30 minutes of time was spent discussing with patient, daughter, automation clerk and Dr. Quezada regarding anemia. Reviewed with patient and daughter regarding risk of anemia and fracture this will have on her strength and rehabilitation. Both daughter and patient agreed to a blood transfusion of 1 unit today. Contacted blood bank in the lab to confirm this. Placed Type and screen,1 unit of packed red blood cells, leuko-reduced is ordered to administer today. Will need to continue to monitor Hgb closely. Will add Lidoderm patch to right hip along with Tylenol for better pain control. Continue with Ceftin for 7 days for coverage, end date 10/21/16. Monitor blood sugars NovoLog 70/38 units twice a day as well as sliding scale. Continue to encourage work with PT and OT for ongoing strengthening and pain control. CYNTHIA QUEZADA MD October 18, 2016 18:10
[2016-10-18 19:23] VITALS: BP 131/67; PULSE 77; RESP 16; TEMP 97.8; O2SAT 100
--- NOTE | 2016-10-18 20:05 | NUR ---
Shift summary Patient mod assist to transfer in and out of bed. Min assist to ambulate with encouragement. Patient ambulated with FWW, gait belt, min assist to meals atoday. Incontinent of urine x4 this shift with total assist for incontinent management. Patient feeds self meals.
[2016-10-18] MEDS: CEFUROXIME AXETIL 250 MG TABLET PO SCH (21:00)
[2016-10-18] MEDS: LIDOCAINE PATCH REMOVAL TOP SCH (21:00)
--- NOTE | 2016-10-19 00:19 | NUR ---
Chart Check 24 hour chart check completed
[2016-10-19] MEDS: HYDROCODONE/APAP 5 mg/325 mg TABLET PO PRN (02:10)
--- NOTE | 2016-10-19 05:44 | NUR ---
Summary Pt alert and oriented and pleasant. She was incontinent of urine during the night. She also went in the toilet a bit, and some urine hit the floor and toilet as she did not want to sit to urinate so just squatted. The toilet seat hurts her pelvis. When back in bed I offered medication, but she said she was alright for now. She would tell me if she starts hurting. She mentioned that maybe she would not urinate as much if she did not take the medication. Pt educated on side effects of pain medication not being urinating more. She said she had trouble with her Potassium being too high also, and was educated her Potassium is WNL currently. Vitals and blood Glucose has been stable. She is currently in bed with side rails up times two, bed alarm on and call light within reach. She refused her SCDs.
[2016-10-19 08:00] VITALS: BP 176/89; PULSE 96; RESP 20; TEMP 97.8; O2SAT 98
[2016-10-19] MEDS: ASPART SQ SCH ×2 (08:29→17:46)
[2016-10-19] MEDS: INSULIN NPH SQ SCH ×2 (08:29→17:46)
[2016-10-19] MEDS: SENNA + DOCUSATE TAB PO SCH ×2 (08:30→21:30)
[2016-10-19] MEDS: VIT C PO SCH (08:30)
[2016-10-19] MEDS: CEFUROXIME AXETIL 250 MG TABLET PO SCH ×2 (08:30→21:30)
[2016-10-19] MEDS: DOCUSATE SODIUM 100 MG CAPSULE PO SCH ×2 (08:30→21:30)
[2016-10-19] MEDS: [UNRECOGNIZED DRUG - OTHER] PO SCH (08:30)
[2016-10-19] MEDS: AMLODIPINE 5 MG TABLET PO SCH (08:31)
[2016-10-19] MEDS: LIDOCAINE 5% PATCH TOP SCH (08:31)
[2016-10-19] MEDS: TRAMADOL 50 MG TABLET PO PRN (08:32)
[2016-10-19 10:19] LABS: BASOPHILS % (AUTO) 0.5 % (0-2); EOSINOPHILS # (AUTO) 0.1 T/MM3 (0-0.5); EOSINOPHILS % (AUTO) 1.7 % (0-4); HCT - HEMATOCRIT 34.1 % (36-46); HGB - HEMOGLOBIN 10.4 GM/DL (12-16); IMMATURE GRANULOCYTE # (AUTO) 0.01 T/MM3 (0.00-0.03); IMMATURE GRANULOCYTE % (AUTO) 0.2 % (0.0-0.5); LYMPHOCYTES # (AUTO) 1.1 T/MM3 (1-4.8); LYMPHOCYTES % (AUTO) 17.2 % (23-45); MEAN CORPUSCULAR HGB 30.2 UUG (26-34); MEAN CORPUSCULAR HGB CONC(MCHC 30.5 GM/DL (31-37); MEAN CORPUSCULAR VOLUME 99.1 UM3 (80-100); MEAN PLATELET VOLUME 10.4 UM3 (9.4-12.4); MONOCYTES # (AUTO) 0.3 T/MM3 (0-0.8); MONOCYTES % (AUTO) 4.6 % (0-9.0); NEUTROPHILS % (AUTO) 75.8 % (33-66); RED BLOOD COUNT 3.44 M/MM3 (4.00-5.20); WBC - WHITE BLOOD COUNT 6.6 T/MM3 (4.5-11.0)
[2016-10-19] MEDS: INSULIN ASPART 100 UNIT/ML SQ PRN ×2 (11:20→21:36)
--- NOTE | 2016-10-19 12:12 | PNPDOC ---
Subjective Date DATE: 10/19/16 TIME: 12:07 Subjective Melvi is seen this morning while resting in bed. She states that she is feeling good. Denies having chest pain, shortness of breath or GI complaints. Reports right hip pain/pelvic pain currently tolerable. She reported earlier this morning that [place] made her feel "funny". Hemoglobin this morning up to 10.4. Objective Vital Signs Vital signs Vital Signs Date Time Temp Pulse Resp B/P Pulse Ox O2 Delivery O2 Flow Rate FiO2 10/19/16 08:00 97.8 96 20 176/89 98 Room Air Height (Feet): 5 Height (Inches): 7.00 Weight (Kilograms): 50.600 General General Appearance: Alert, Orientated x 2, Cooperative, No Acute Distress Eyes (Brief) Eyes: FOUND: EOMI ENMT (Brief) ENMT: FOUND: mucosa moist, normal dentition, NOT FOUND: pharnyx erythema Neck (Brief) Neck: FOUND: midline, NOT FOUND: adenopathy, carotid bruits, tracheal deviation Respiratory (Brief) Respiratory: FOUND: clear all tiwari, equal bilaterally, NOT FOUND: wheezes Cardiovascular (Brief) Cardiac: FOUND: regular rate, regular rhythm, NOT FOUND: murmur, pedal edema Capillary Refill: <2 sec Abdomen (Brief) Abdominal: FOUND: BS normo active x4, soft, NOT FOUND: distended, tender Lymphatic (Brief) Lymphatic: NOT FOUND: adenopathy Musculoskeletal (Brief) Musculoskeletal: NOT FOUND: tenderness Integumentary (Brief) Integumentary: FOUND: dry, pink, warm Neurologic (Brief) Neurological: FOUND: cranial 2-12 intact Psychiatric (Brief) Psychiatric: FOUND: alert, attentive, normal affect, oriented Laboratory Laboratory Laboratory Tests 10/18/16 04:41 Laboratory Tests 10/17/16 22:30 10/18/16 04:41 10/19/16 10:05 Assessment & Plan Problems: (1) Macrocytic anemia Status: Chronic Assessment & Plan: History of anemia of chronic disease and iron deficiency anemia. Baseline hemoglobin has been 9-10. (2) Falls Status: Acute (3) Pubic ramus fracture Status: Acute (4) DM2 (diabetes mellitus, type 2) Status: Chronic Qualifiers: Diabetes mellitus complication status: with kidney complications Diabetes mellitus complication detail: with chronic kidney disease Diabetes mellitus director long term care insulin use: with director long term care use Chronic kidney disease stage: stage 4 (severe) Qualified Codes: E11.22 - Type 2 diabetes mellitus with diabetic chronic kidney disease; N18.4 - Chronic kidney disease, stage 4 (severe ); Z79.4 - detention (current) use of insulin (5) HTN (hypertension) Status: Chronic (6) Hyponatremia Status: Chronic (7) Osteoporosis Status: Chronic Plan/Intensity of Service 10/19/16 Hgb this morning increased to 10.4 She does have known chronic anemia with baseline 9-10. Will continue to monitor regular CBC. Continue with Lidoderm patch to right hip along with Tylenol for better pain control. She did receive a [place] over night. However, this made her feel funny. Will add tramadol as needed for pain control Continue with Ceftin for 7 days for coverage, end date 10/21/16. Continue to monitor renal function. Encourage oral fluid intake Monitor blood sugars NovoLog 70/38 units twice a day as well as sliding scale. Continue to encourage work with PT and OT for ongoing strengthening and pain control. Code Status Do Not Resuscitate Hospital Course Summary Disclaimer The hospital course summary below is not to be considered part of the above Progress Note. Hospital Course Summary 10/14: Evelyne. 1. Pelvic fracture secondary to falls * Continue to encourage participation in therapies to improve strength and functional abilities. * Provide a safe and supportive environment. 2. Macrocytic anemia * Hemoglobin variable throughout admission, ranging from 6's to 8's day to day. Patient has history of iron deficiency anemia as well as anemia of chronic disease. * Family has refused blood transfusion and requested that patient be able to take her home iron supplementation as they feel it is better absorbed, which is fine. * Continue to monitor hemoglobin and blood counts closely. 3.. Hypertension * Continue Norvasc and monitor blood pressure closely. Blood pressure also variable. 4. Diabetes * Blood sugars variable, ranging from lows in 40s-50s to highs >300. Continue to monitor closely. Consider consulting Dr. Estevez for expertise. 5. Hyponatremia- resolved. * Continue to monitor periodically. Recheck in AM with BMP. 6. Osteoporosis 7. UTI, new diagnosis * UA showed 5-10 WBC with 4+ bacteria. Ceftin initiated and renally dosed. Monitor closely. 8. CKD, stage 4 * Continue to monitor renal function closely - SCr 2.0 (baseline). Recommend follow up with nickel plater as outpatient to evaluate for upcoming need of fistula. * * 10/16/16 Will need to continue to monitor Hgb closely. Today Hgb is 7.6. Will recheck tomorrow. Will add Lidoderm patch to right hip along with Tylenol for better pain control. Urine culture positive for E-Coli which is pansensitive. Continue with Ceftin for 7 days for coverage, end date 10/21/16. Monitor blood sugars NovoLog 70/38 units twice a day as well as sliding scale. Senna plus and Colace twice a day for ongoing bowel motivation Continue to encourage work with PT and OT for ongoing strengthening and pain control. 10/17/16 30 minutes of time was spent discussing with patient, daughter, date night caregiver and Dr. Zelaya regarding anemia. Reviewed with patient and daughter regarding risk of anemia and fracture this will have on her strength and rehabilitation. Both daughter and patient agreed to a blood transfusion of 1 unit today. Contacted blood bank in the lab to confirm this. Placed Type and screen,1 unit of packed red blood cells, leuko-reduced is ordered to administer today. Will need to continue to monitor Hgb closely. Will add Lidoderm patch to right hip along with Tylenol for better pain control. Continue with Ceftin for 7 days for coverage, end date 10/21/16. Monitor blood sugars NovoLog 70/38 units twice a day as well as sliding scale. Continue to encourage work with PT and OT for ongoing strengthening and pain control. CHIDI DUVALL APRN October 19, 2016 12:11
--- NOTE | 2016-10-19 13:17 | STDAILYN ---
ST Daily Note Date/Time DATE: 10/19/16 TIME: 12:01 Subjective Comment Pt received speech therapy this morning in her room. She was positioned upright in her recliner. She reports that her pain level was tolerable at a 6 on the pain scale. Orientations: Place, Alert, Cooperative Chief Complaint: pelvic fx, confusion Pain: Yes (hip pain) Was Patient Education Provided: Yes Person(s) Educated: Patient Education Subject: Safety, Speech Strategies Instruction Understanding Demo: Pt. verbalizes understand *Speech Therapy Impressions PENITENTIARY GOAL: Pt will use appropriate memory strategies to schedule and recall weekly activities, express needs, and recall names to maintain safety and participate socially in functional living environment SHORT TERM GOALS: Pt will repeat a 5 word list of functional words/phrases related to activities of daily living immediately after presentation with minimal cues and 80% accuracy. Pt repeated a 4 word phrase with 90% accuracy; 5 words with 70% accuracy, requiring moderate contextual cues. Pt will identify items within a category and/or state the category's class during a structured task requiring minimal cues with 85% accuracy. Patient was instructed to name as many items within a given category. Memory strategies were re-explained to the patient. Fruit:7 Veggies: 6 Colors: 6 Animals: Pets: 3; Farm:4; Zoo: 6 Patient correctly grouped items into the correct category. Pt demonstrated improved focus and maintained attention to task. Pt will recall ADLS with minimal cues with 80% accuracy. Patient recalled morning activities with 4/4 accuracy. She was able to recall her breakfast meal with mild cueing. Pt will use external memory aids and compensatory strategies to recall routine, personal information and recent events to improvement orientation to time/place with 85% accuracy given minimal cues. Not targeted during therapy Pt will demonstrate recall of functional information following a short-term delay with minimal cues in order to increase functional integration into environment with 80% accuracy.Pt answered a question after listening for details within a two sentence combination with 60% accuracy and moderate cues. Occasionally, the pt required word finding problems requiring a phonemic cue. The pt was instructed to use visualization and chaining techniques for word recall which did improve accuracy. ST Treatment Plan: Memory Retraining ST Treatment Plan Frequency: five times per week Treatment Plan Duration: one week Plan of Care Comment: Cont POC Start Treatment 1: 10:13 Stop Treatment 1: 10:55 Treatment Duration : ST Treatment Charge: Speech Treatment Minutes of Individual Therapy: 42 ST FIM Comprehension Ability: 3 Moderate Assistance Social Interaction: 5 Supervision/Setup Problem Solvin Minimal Assistance Memory: 3 Moderate Assistance Expression Ability: 5 Supervision/Setup GABRIEL LAUGHLIN MA October 19, 2016 12:03
--- NOTE | 2016-10-19 13:54 | NUR ---
CM CM IN TO VISIT WITH PT. SHE IS ALERT AND ANSWERED QUESTIONS APPROPRIATELY. SHE IS MADE AWARE THAT [facility] CAN PROVIDE SNF SERVICES. SHE IS ALSO MADE AWARE THAT -[facility] CAN'T PROVIDE TRANSPORTATION. PT IS AGREEABLE TO PLACEMENT AT [facility] WITH DC ON SATURDAY. THIS INFORMATION IS LEFT IN VM FOR PT DAUGHTER/DPOA, HENRI. CM REQUESTS RETURN CALL FROM HENRI WITH DECISION ABOUT DC DESTINATION.
--- NOTE | 2016-10-19 14:53 | NUR ---
ERICA CM SPOKE WITH KATRINA APRN. CM IS POSTPONED UNTIL SATURDAY. BASED UPON THIS INFORMATION, PT AND DAUGHTER, HENRI, WOULD LIKE PT TO DC TO [facility] ON SATURDAY.
[2016-10-19 16:00] VITALS: BP 169/76; PULSE 81; RESP 16; TEMP 97.5; O2SAT 98
--- NOTE | 2016-10-19 18:51 | NUR ---
Shift summary Patient ambulating with FWW, gait belt, min assist. Mod assist for transfers. Incontinent of urine this shift, uses pull ups with pad. Total assist for incontinent management. Feeds self meal. Took ultram for pain today, states worked "ok". Refused norco this shift for pain.
--- NOTE | 2016-10-19 20:24 | NUR ---
Chart Check 24 hour chart check completed
[2016-10-19 20:33] VITALS: BP 151/80; PULSE 91; RESP 18; TEMP 97.6; O2SAT 94
[2016-10-19] MEDS: LIDOCAINE PATCH REMOVAL TOP SCH (21:00)
[2016-10-19 21:30] VITALS: PULSE 91; RESP 18
--- NOTE | 2016-10-20 05:10 | NUR ---
Summary Griselda is a pleasant and cooperative patient. VSS. She has denied pain and no prn pain meds were given. Her IV lock in her left wrist intact and flushes well.SCD's used through the night.When in bed side rails up x two call light with in reach and bed alarms intact.BGM at hs was 180 and SSI was given. She ambulates with fww gb and contact guard. Incontinent of urine x two with max assist of staff for clothing and hygiene cares.Noted bruising to bilateral knees and bilateral elbows. Addendum: 10/21/16 at 0747 by MIYA GOMES RN IV lock is in the right wrist.
[2016-10-20 05:15] LABS: BASOPHILS % (AUTO) 0.3 % (0-2); EOSINOPHILS # (AUTO) 0.2 T/MM3 (0-0.5); EOSINOPHILS % (AUTO) 3.3 % (0-4); HCT - HEMATOCRIT 27.7 % (36-46); HGB - HEMOGLOBIN 8.2 GM/DL (12-16); IMMATURE GRANULOCYTE # (AUTO) 0.01 T/MM3 (0.00-0.03); IMMATURE GRANULOCYTE % (AUTO) 0.2 % (0.0-0.5); LYMPHOCYTES # (AUTO) 0.8 T/MM3 (1-4.8); LYMPHOCYTES % (AUTO) 12.6 % (23-45); MEAN CORPUSCULAR HGB 29.8 UUG (26-34); MEAN CORPUSCULAR HGB CONC(MCHC 29.6 GM/DL (31-37); MEAN CORPUSCULAR VOLUME 100.7 UM3 (80-100); MEAN PLATELET VOLUME 10.4 UM3 (9.4-12.4); MONOCYTES # (AUTO) 0.6 T/MM3 (0-0.8); MONOCYTES % (AUTO) 10.5 % (0-9.0); NEUTROPHILS #(AUTO)-ABSOLUTE 4.5 T/MM3 (1.8-7.7); NEUTROPHILS % (AUTO) 73.1 % (33-66); RED BLOOD COUNT 2.75 M/MM3 (4.00-5.20); WBC - WHITE BLOOD COUNT 6.1 T/MM3 (4.5-11.0)
[2016-10-20 05:26] LABS: ANION GAP 12 MEQ/L (5-15); BUN/CREATININE RATIO 31 RATIO (6-26); CALCIUM 8.6 MG/DL (8.4-10.2); CHLORIDE 105 MEQ/L (98-107); CO2 - CARBON DIOXIDE 24 MEQ/L (22-30); CREATININE 2.2 MG/DL (0.7-1.2); GLOMERULAR FILTRATION RATE 21; GLUCOSE 110 MG/DL (65-110); SODIUM 141 MEQ/L (134-144)
--- NOTE | 2016-10-20 08:00 | NUR ---
Labs Notified MINDY Lopez, of pt.'s BUN of 67 and creat of 2.2. Pt.'s BUN and creat are noted to have been elevated and pt. is noted to have a history of kidney disease. Please see labs. Will continue to monitor.
[2016-10-20 08:15] VITALS: BP 195/85; PULSE 108; RESP 18; TEMP 98.5; O2SAT 96
[2016-10-20] MEDS: DOCUSATE SODIUM 100 MG CAPSULE PO SCH ×2 (08:19→21:29)
[2016-10-20] MEDS: INSULIN NPH SQ SCH ×2 (08:19→17:54)
[2016-10-20] MEDS: AMLODIPINE 5 MG TABLET PO SCH (08:19)
[2016-10-20] MEDS: ASPART SQ SCH ×2 (08:19→17:54)
[2016-10-20] MEDS: HYDROCODONE/APAP 5 mg/325 mg TABLET PO PRN (08:19)
[2016-10-20] MEDS: SENNA + DOCUSATE TAB PO SCH ×2 (08:19→21:29)
[2016-10-20] MEDS: CEFUROXIME AXETIL 250 MG TABLET PO SCH ×2 (08:19→21:29)
[2016-10-20] MEDS: VIT C PO SCH (08:20)
[2016-10-20] MEDS: [UNRECOGNIZED DRUG - OTHER] PO SCH (08:20)
[2016-10-20] MEDS: LIDOCAINE 5% PATCH TOP SCH (09:16)
[2016-10-20 09:30] VITALS: PULSE 89; RESP 18
[2016-10-20] MEDS ORDERED: 1/2 NS 1,000 ML IV SCH (10:00)
[2016-10-20 10:30] VITALS: BP 150/72; PULSE 89
[2016-10-20] MEDS ORDERED: MILK OF MAGNESIA 30 ML SUSP PO PRN (10:30)
[2016-10-20] MEDS: INSULIN ASPART 100 UNIT/ML SQ PRN ×2 (10:33→14:57)
--- NOTE | 2016-10-20 11:00 | NUR ---
BP Pt. BP this morning noted to be 195/85 with HR of 108. This was after walking to the dinning room for breakfast and pt. is noted to be in a lot of pain. PRN pain med and scheduled meds given. Please see eMAR. Upon re-assessment, pt.'s BP noted to have come down to 150/72 with HR of 89. Notified MINDY Lopez. Will continue to monitor.
--- NOTE | 2016-10-20 12:00 | NUR ---
BM Pt.'s last BM noted to be 5-2. Spoke with pt. about this and pt. agreed to take PRN MOM. Dose administered. Please see eMAR. Will continue to monitor.
--- NOTE | 2016-10-20 15:14 | NUR ---
IV Bolus Pt. received IV Bolus of 0.45 NS. Please see eMAR. Clarified fluids with MINDY Lopez. She reported to IVL pt. after fluids are finished. Will continue to monitor.
[2016-10-20 16:10] VITALS: BP 157/74; PULSE 76; RESP 18; TEMP 98.4; O2SAT 100
[2016-10-20] MEDS: TRAMADOL 50 MG TABLET PO PRN (17:54)
--- NOTE | 2016-10-20 18:37 | PNPDOC ---
IRU Subjective Date DATE: 10/20/16 TIME: 18:20 Subjective Daughter prefers she be on 70/30 insulin that is a RICH brand med. She also would like her to be able to have ibuprofen 200mg occ for pain. She understands the risks of ibuprofen to both the stomach and kidney. IRU Objective Vital Signs Vital signs Vital Signs Date Time Temp Pulse Resp B/P Pulse Ox O2 Delivery O2 Flow Rate FiO2 10/20/16 16:10 98.4 76 18 157/74 100 Room Air Height (Feet): 5 Height (Inches): 7.00 Weight (Kilograms): 50.600 Laboratory Laboratory Laboratory Tests Test 10/19/16 10:05 10/19/16 10:28 10/19/16 14:23 10/20/16 04:25 White Blood Count 6.6T/MM3 6.1T/MM3 Red Blood Count 3.44M/MM3 2.75M/MM3 Hemoglobin 10.4GM/DL 8.2GM/DL Hematocrit 34.1% 27.7% Mean Corpuscular Volume 99.1UM3 100.7UM3 Mean Corpuscular Hemoglobin 30.2UUG 29.8UUG Mean Corpuscular Hemoglobin Concent 30.5GM/DL 29.6GM/DL RDW Standard Deviation 51.9FL 50.2FL Platelet Count 378T/MM3 291T/MM3 Mean Platelet Volume 10.4UM3 10.4UM3 Immature Granulocyte % (Auto) 0.2% 0.2% Neutrophils (%) (Auto) 75.8% 73.1% Lymphocytes (%) (Auto) 17.2% 12.6% Monocytes (%) (Auto) 4.6% 10.5% Eosinophils (%) (Auto) 1.7% 3.3% Basophils (%) (Auto) 0.5% 0.3% Absolute Immature Granulocyte (auto 0.01T/MM3 0.01T/MM3 Absolute Neutrophils (auto) 5.0T/MM3 4.5T/MM3 Absolute Lymphocytes (auto) 1.1T/MM3 0.8T/MM3 Absolute Monocytes (auto) 0.3T/MM3 0.6T/MM3 Absolute Eosinophils (auto) 0.1T/MM3 0.2T/MM3 Absolute Basophils (auto) 0.0T/MM3 0.0T/MM3 Glucometer 258mg/dL 126mg/dL Turbidity < 20 Sodium Level 141MEQ/L Potassium Level 5.0MEQ/L Chloride Level 105MEQ/L Carbon Dioxide Level 24MEQ/L Anion Gap 12MEQ/L Blood Urea Nitrogen 67.0MG/DL Creatinine 2.2MG/DL Glomerular Filtration Rate Calc 21 BUN/Creatinine Ratio 31RATIO Glucose Level 110MG/DL Calculated Osmolality 291MOSM/KG Calcium Level 8.6MG/DL Icterus Index < 2 Chemistry Specimen Hemolysis < 15 Test 10/20/16 10:08 10/20/16 14:47 Glucometer 235mg/dL 167mg/dL Assessment & Plan Problems: (1) Myopathy (2) Falls Status: Acute (3) Pubic ramus fracture Status: Acute (4) CKD (chronic kidney disease) stage 4, GFR 15-29 ml/min Status: Chronic (5) DM2 (diabetes mellitus, type 2) Status: Chronic Qualifiers: Diabetes mellitus complication status: with kidney complications Diabetes mellitus complication detail: with chronic kidney disease Diabetes mellitus halfway insulin use: with long term care social worker use Chronic kidney disease stage: stage 4 (severe) Qualified Codes: E11.22 - Type 2 diabetes mellitus with diabetic chronic kidney disease; N18.4 - Chronic kidney disease, stage 4 (severe ); Z79.4 - intermediate frame tender (current) use of insulin (6) HTN (hypertension) Status: Chronic Code Status Do Not Resuscitate Interventions to Obtain Goals PT Treatment Plan: Therapeutic Exercise, Gait Training, Functional Activities , Patient/Family Education, Balance/Proprioception OT Treatment Plan: ADL's (basic care), Ther. Exercise for ADL's, UE Functional Training, Balance Training, Pt./Family Education, IADL's ST Treatment Plan: Memory Retraining Hospital Course Summary Disclaimer The hospital course summary below is not to be considered part of the above Progress Note. Hospital Course Summary 10/14: Evelyne. 1. Pelvic fracture secondary to falls * Continue to encourage participation in therapies to improve strength and functional abilities. * Provide a safe and supportive environment. 2. Macrocytic anemia * Hemoglobin variable throughout admission, ranging from 6's to 8's day to day. Patient has history of iron deficiency anemia as well as anemia of chronic disease. * Family has refused blood transfusion and requested that patient be able to take her home iron supplementation as they feel it is better absorbed, which is fine. * Continue to monitor hemoglobin and blood counts closely. 3.. Hypertension * Continue Norvasc and monitor blood pressure closely. Blood pressure also variable. 4. Diabetes * Blood sugars variable, ranging from lows in 40s-50s to highs >300. Continue to monitor closely. Consider consulting Dr. Estevez for expertise. 5. Hyponatremia- resolved. * Continue to monitor periodically. Recheck in AM with BMP. 6. Osteoporosis 7. UTI, new diagnosis * UA showed 5-10 WBC with 4+ bacteria. Ceftin initiated and renally dosed. Monitor closely. 8. CKD, stage 4 * Continue to monitor renal function closely - SCr 2.0 (baseline). Recommend follow up with jukebox coin collector as outpatient to evaluate for upcoming need of fistula. * * 10/16/16 Will need to continue to monitor Hgb closely. Today Hgb is 7.6. Will recheck tomorrow. Will add Lidoderm patch to right hip along with Tylenol for better pain control. Urine culture positive for E-Coli which is pansensitive. Continue with Ceftin for 7 days for coverage, end date 10/21/16. Monitor blood sugars NovoLog 70/38 units twice a day as well as sliding scale. Senna plus and Colace twice a day for ongoing bowel motivation Continue to encourage work with PT and OT for ongoing strengthening and pain control. 10/17/16 30 minutes of time was spent discussing with patient, daughter, concert or lecture hall manager and Dr. Quezada regarding anemia. Reviewed with patient and daughter regarding risk of anemia and fracture this will have on her strength and rehabilitation. Both daughter and patient agreed to a blood transfusion of 1 unit today. Contacted blood bank in the lab to confirm this. Placed Type and screen,1 unit of packed red blood cells, leuko-reduced is ordered to administer today. Will need to continue to monitor Hgb closely. Will add Lidoderm patch to right hip along with Tylenol for better pain control. Continue with Ceftin for 7 days for coverage, end date 10/21/16. Monitor blood sugars NovoLog 70/38 units twice a day as well as sliding scale. Continue to encourage work with PT and OT for ongoing strengthening and pain control. CYNTHIA QUEZADA MD October 20, 2016 18:23
--- NOTE | 2016-10-20 19:02 | NUR ---
Summary Pt. pleasant. She is a mod assist transfer x1 with walker and gait belt. Pt. does ambulate to meals. She is total assist with brooks care and clothing management. She is in a lot of pain with activity. Pt. does rated right pelvic pain a 7-8/10. Her daughter is present and reports she does not want pt. to have [place]. PRN Tramadol given with dinner. Please see eMAR. Bilateral pedal pulses palpable. Encouraged re-positioning for comfort. Mepilex dressing to coccyx noted to be C/D/I. Pt. is currently resting in bed. Report has been past on to manufacturing shift supervisor.
[2016-10-20 19:25] VITALS: BP 128/65; PULSE 78; RESP 16; TEMP 97.5; O2SAT 99
[2016-10-20 19:30] VITALS: PULSE 78; RESP 16
[2016-10-20] MEDS: LIDOCAINE PATCH REMOVAL TOP SCH (21:00)
--- NOTE | 2016-10-21 00:08 | NUR ---
Hypoglycemic Episode: 2110 : Bgm was found to be 33.Pt was lying in her bed . She was visiting with staff . She denied any adverse symptoms. Her skin was warm and dry. She was alert and oriented.She ate 4 oz of apple sauce,one Peanutbutter cracker and drank 5.5 oz of grapejuice. 2325-0550:Bgm 34.Retaken on another machine-45.She drank another 5.5 oz of grape juice and was still eating her turkey sandwich.She continues to deny any adverse symptoms. 2204:Spoke with Dr Woodward and pts status was given.The following orders were received: Hold am Novolog , continue to monitor and alert him if patients condition should decline. 2230:4 oz orange juice was offered.She continues to deny any adverse symptoms.Bgm was 52. 5: Bgm was 80.Resting in bed. 8:Bgm was 112.Pts condition remains unchanged.She denies any adverse symptoms and is resting in bed.Remains alert.
[2016-10-21] MEDS: TRAMADOL 50 MG TABLET PO PRN ×3 (02:40→18:00)
[2016-10-21] MEDS: ASPART SQ SCH (02:58)
[2016-10-21] MEDS: INSULIN NPH SQ SCH (02:58)
--- NOTE | 2016-10-21 04:39 | NUR ---
Chart Check 24 hour chart check completed
[2016-10-21 05:35] LABS: BASOPHILS % (AUTO) 0.3 % (0-2); EOSINOPHILS # (AUTO) 0.2 T/MM3 (0-0.5); HCT - HEMATOCRIT 27.7 % (36-46); HGB - HEMOGLOBIN 8.2 GM/DL (12-16); LYMPHOCYTES # (AUTO) 0.9 T/MM3 (1-4.8); LYMPHOCYTES % (AUTO) 14.4 % (23-45); MEAN CORPUSCULAR HGB CONC(MCHC 29.6 GM/DL (31-37); MEAN CORPUSCULAR VOLUME 101.5 UM3 (80-100); MEAN PLATELET VOLUME 10.7 UM3 (9.4-12.4); MONOCYTES # (AUTO) 0.6 T/MM3 (0-0.8); MONOCYTES % (AUTO) 9.5 % (0-9.0); NEUTROPHILS #(AUTO)-ABSOLUTE 4.3 T/MM3 (1.8-7.7); NEUTROPHILS % (AUTO) 72.8 % (33-66); RED BLOOD COUNT 2.73 M/MM3 (4.00-5.20); WBC - WHITE BLOOD COUNT 5.9 T/MM3 (4.5-11.0)
[2016-10-21 05:55] LABS: ANION GAP 11 MEQ/L (5-15); BUN/CREATININE RATIO 26 RATIO (6-26); CALCIUM 8.5 MG/DL (8.4-10.2); CHLORIDE 103 MEQ/L (98-107); CO2 - CARBON DIOXIDE 24 MEQ/L (22-30); CREATININE 2.2 MG/DL (0.7-1.2); GLOMERULAR FILTRATION RATE 21; GLUCOSE 256 MG/DL (65-110); POTASSIUM 5.9 MEQ/L (3.6-5); SODIUM 138 MEQ/L (134-144)
[2016-10-21] MEDS: ACETAMINOPHEN 325 MG TABLET PO PRN ×2 (06:25→14:37)
--- NOTE | 2016-10-21 06:28 | NUR ---
Summary Melvi is a pleasant cooperative patient and at times anxious . VSS. She has reported pain twice and has accepted pain meds both times this evening.See EMAR. The IV lock in her right wrist is intact and flushes well.SCD's used through most of the night.When in bed side rails up x two call light with in reach and bed alarms intact.BGM at 0620 was 304.She stood at the side of the bed to get ready for bed last night, she refused to go to the bathroom opting to void in the pull up she was wearing. Incontinent of urine with max assist of staff for clothing and hygiene cares.Noted bruising to bilateral knees and bilateral elbows.
[2016-10-21] MEDS: INSULIN ASPART 100 UNIT/ML SQ PRN ×3 (07:38→14:37)
--- NOTE | 2016-10-21 07:42 | NUR ---
Reported current condition to Jessica Marr APRN.New orders pending.4 units of SSI was given for bgm of 304.
[2016-10-21] MEDS ORDERED: SODIUM POLYSTYRENE SULFONATE 15 GM/60 ML BOTTLE PO ONE (08:15)
[2016-10-21] MEDS ORDERED: FUROSEMIDE 20 MG/2 ML INJECTION IV ONE (08:15)
[2016-10-21] MEDS ORDERED: NORMAL SALINE 1,000 ML IV SCH (08:15)
--- NOTE | 2016-10-21 08:21 | PNPDOC ---
VERITO BLANCHARD BEHAVIOR SPECIALIST 10/21/16 0815: Subjective Date DATE: 10/21/16 TIME: 08:12 Subjective Melvi was still in bed, but was awake and alert. She had no complaints. She states that she is feeling better overall. She denied any risk of deep breathing. She denied any abdominal pain, nausea or vomiting or constipation. Nursing staff hasn't documented a bowel movement since 10/16/16. She had blood sugars in the 30s last night, but she denies any symptoms with it, which she states is unusual because normally she can tell when her blood sugars are low. Her blood sugars improved after eating. Objective Vital Signs Vital signs Vital Signs Date Time Temp Pulse Resp B/P Pulse Ox O2 Delivery O2 Flow Rate FiO2 10/20/16 19:30 78 16 10/20/16 19:25 97.5 128/65 99 Room Air Height (Feet): 5 Height (Inches): 7.00 Weight (Kilograms): 50.600 General General Appearance: Alert, Orientated x 3, Well Nourished, Well Developed, No Acute Distress Eyes (Brief) Eyes: FOUND: PERRL, NOT FOUND: scleral icterus ENMT (Brief) ENMT: FOUND: mucosa moist, NOT FOUND: normal dentition Respiratory (Brief) Respiratory: FOUND: clear all tiwari, equal bilaterally Cardiovascular (Brief) Cardiac: FOUND: regular rate, regular rhythm Abdomen (Brief) Abdominal: FOUND: BS normo active x4, soft, NOT FOUND: distended, tender Extremities (Brief) Extremity : Side: Bilateral Extremity: leg Extremity Finding: NOT FOUND: edema Musculoskeletal (Brief) Musculoskeletal: NOT FOUND: tenderness Integumentary (Brief) Integumentary: FOUND: dry, warm, NOT FOUND: pink (pale) Psychiatric (Brief) Psychiatric: FOUND: alert, attentive, normal affect, oriented Laboratory Laboratory Laboratory Tests 10/20/16 04:25 10/21/16 04:40 Laboratory Tests 10/19/16 10:05 10/20/16 04:25 10/21/16 04:40 Assessment & Plan Problems: (1) Hyperkalemia Status: Acute (2) Macrocytic anemia Status: Chronic Assessment & Plan: History of anemia of chronic disease and iron deficiency anemia. Baseline hemoglobin has been 9-10. (3) Falls Status: Acute (4) Pubic ramus fracture Status: Acute (5) DM2 (diabetes mellitus, type 2) Status: Chronic Qualifiers: Diabetes mellitus complication status: with kidney complications Diabetes mellitus complication detail: with chronic kidney disease Diabetes mellitus [facility] insulin use: with terminal gauger supervisor use Chronic kidney disease stage: stage 4 (severe) Qualified Codes: E11.22 - Type 2 diabetes mellitus with diabetic chronic kidney disease; N18.4 - Chronic kidney disease, stage 4 (severe ); Z79.4 - intermediate school teacher (current) use of insulin (6) HTN (hypertension) Status: Chronic (7) Hyponatremia Status: Chronic (8) Osteoporosis Status: Chronic Plan/Intensity of Service Hyperkalemia, potassium is 5.9 this morning: Discussed with Dr. Helm. Will give 1 L of normal saline, Kayexalate, and Lasix 20 mg. Repeat BMP this afternoon and again tomorrow morning. History of chronic kidney disease - BUN 58 and creatinine 2.2 this morning. Start low potassium diet in addition to consistent carbohydrate. Constipation with normal abdominal exam: Kayexalate to be given today. Will add additional PRN medications. Asymptomatic hypoglycemia last evening with blood sugars in the 30s: We'll discontinue sliding scale insulin. 70/30 insulin was held this morning and she was given 4 units of regular insulin. Will continue with 70/30 this evening, except decrease dose to 4 units. Tomorrow will continue with 8 units of 70/30 with breakfast. Escherichia coli UTI: Today is day 7 of Ceftin. Anemia of chronic disease: Hemoglobin is low but stable at 8.2. Code Status Do Not Resuscitate Hospital Course Summary Disclaimer The hospital course summary below is not to be considered part of the above Progress Note. Hospital Course Summary 10/14: Evelyne. 1. Pelvic fracture secondary to falls * Continue to encourage participation in therapies to improve strength and functional abilities. * Provide a safe and supportive environment. 2. Macrocytic anemia * Hemoglobin variable throughout admission, ranging from 6's to 8's day to day. Patient has history of iron deficiency anemia as well as anemia of chronic disease. * Family has refused blood transfusion and requested that patient be able to take her home iron supplementation as they feel it is better absorbed, which is fine. * Continue to monitor hemoglobin and blood counts closely. 3.. Hypertension * Continue Norvasc and monitor blood pressure closely. Blood pressure also variable. 4. Diabetes * Blood sugars variable, ranging from lows in 40s-50s to highs >300. Continue to monitor closely. Consider consulting Dr. Estevez for expertise. 5. Hyponatremia- resolved. * Continue to monitor periodically. Recheck in AM with BMP. 6. Osteoporosis 7. UTI, new diagnosis * UA showed 5-10 WBC with 4+ bacteria. Ceftin initiated and renally dosed. Monitor closely. 8. CKD, stage 4 * Continue to monitor renal function closely - SCr 2.0 (baseline). Recommend follow up with patient scheduling manager as outpatient to evaluate for upcoming need of fistula. * * 10/16/16 Will need to continue to monitor Hgb closely. Today Hgb is 7.6. Will recheck tomorrow. Will add Lidoderm patch to right hip along with Tylenol for better pain control. Urine culture positive for E-Coli which is pansensitive. Continue with Ceftin for 7 days for coverage, end date 10/21/16. Monitor blood sugars NovoLog 70/38 units twice a day as well as sliding scale. Senna plus and Colace twice a day for ongoing bowel motivation Continue to encourage work with PT and OT for ongoing strengthening and pain control. 10/17/16 30 minutes of time was spent discussing with patient, daughter, machine group leader and Dr. Zelaya regarding anemia. Reviewed with patient and daughter regarding risk of anemia and fracture this will have on her strength and rehabilitation. Both daughter and patient agreed to a blood transfusion of 1 unit today. Contacted blood bank in the lab to confirm this. Placed Type and screen,1 unit of packed red blood cells, leuko-reduced is ordered to administer today. Will need to continue to monitor Hgb closely. Will add Lidoderm patch to right hip along with Tylenol for better pain control. Continue with Ceftin for 7 days for coverage, end date 10/21/16. Monitor blood sugars NovoLog 70/38 units twice a day as well as sliding scale. Continue to encourage work with PT and OT for ongoing strengthening and pain control. RICARDO HELM MD 10/21/16 0958: Assessment & Plan Assessment 10/21/2016-I reviewed this chart, the patient history, and the BEHAVIOR SPECIALIST's/PA's documented findings as above. We discussed and formulated the assessment and plan as above with the additions below.-Dr. Helm Patient states she's feeling well today. She states that her leg pains that she was having is markedly improved. She denies any chest pain or abdominal pain. She states she has been eating and drinking well. She denies any nausea. She denies shortness of breath. She states she felt a little lightheaded on occasion but none now. On exam she is alert and in no acute distress. Chest is clear to auscultation. Cardiovascular reveals a regular rate and rhythm. Abdomen is soft and nontender and nondistended with positive bowel sounds. Extremities are free of edema. Regarding hyperkalemia, I did discuss care plans with REGGIE Lopez and we will give IV fluids, Lasix, Kayexalate, MiraLAX and recheck basic metabolic profile this afternoon. Start low potassium diet. Part of her elevated potassium may be secondary to hyperglycemia. Regarding diabetes, blood sugars are labile. Will decrease 70/30 insulin in the evening. With the patient's chronic kidney disease, will continue to monitor renal function closely. VERITO BLANCHARD APRN October 21, 2016 08:15 RICARDO HELM MD October 21, 2016 09:58
[2016-10-21] MEDS ORDERED: MILK OF MAGNESIA 30 ML SUSP PO PRN (08:30)
[2016-10-21] MEDS ORDERED: BISACODYL 10 MG SUPPOSITORY RECTALLY PRN (08:30)
[2016-10-21 09:30] VITALS: BP 144/85; PULSE 96; RESP 16; TEMP 98; O2SAT 96
[2016-10-21] MEDS: POLYETHYL.GLYCOL 3350 PACKET 17gm PO SCH (09:39)
[2016-10-21] MEDS: CEFUROXIME AXETIL 250 MG TABLET PO SCH ×2 (09:39→21:18)
[2016-10-21] MEDS: DOCUSATE SODIUM 100 MG CAPSULE PO SCH ×2 (09:39→21:18)
[2016-10-21] MEDS: LIDOCAINE 5% PATCH TOP SCH (09:40)
[2016-10-21] MEDS: AMLODIPINE 5 MG TABLET PO SCH (09:40)
[2016-10-21] MEDS: SENNA + DOCUSATE TAB PO SCH ×2 (09:40→21:18)
[2016-10-21] MEDS: VIT C PO SCH (09:44)
[2016-10-21] MEDS: [UNRECOGNIZED DRUG - OTHER] PO SCH (09:44)
[2016-10-21 09:45] VITALS: PULSE 96; RESP 16
--- NOTE | 2016-10-21 11:00 | NUR ---
BGM BGM after breakfast noted to be 295. Notified MINDY Lopez. She gave verbal order to give 4units of NovoLog SS. Will continue to monitor.
--- NOTE | 2016-10-21 14:30 | NUR ---
BGM BGM after lunch reported to be 379 by RUBBER ATTACHER. Notified Dr. Helm. She gave verbal order to give 7 units of NovoLog SS. Will continue to monitor.
[2016-10-21 15:13] LABS: ANION GAP 11 MEQ/L (5-15); BUN/CREATININE RATIO 26 RATIO (6-26); CALCIUM 8.7 MG/DL (8.4-10.2); CHLORIDE 103 MEQ/L (98-107); CO2 - CARBON DIOXIDE 25 MEQ/L (22-30); CREATININE 2.3 MG/DL (0.7-1.2); GLOMERULAR FILTRATION RATE 20; GLUCOSE 466 MG/DL (65-110); POTASSIUM 5.3 MEQ/L (3.6-5); SODIUM 139 MEQ/L (134-144)
[2016-10-21 16:40] VITALS: BP 161/77; PULSE 87; RESP 16; TEMP 98.4; O2SAT 98
[2016-10-21] MEDS ORDERED: INSULIN NPH SQ SCH ×2 (17:15)
[2016-10-21] MEDS ORDERED: ASPART SQ SCH ×2 (17:15)
--- NOTE | 2016-10-21 17:30 | NUR ---
Insulin Dr. Helm called and reported that in light of high BGM"s today to go ahead and give regular 8 units of scheduled insulin at dinner time. Will continue to monitor.
[2016-10-21 19:27] VITALS: BP 142/71; PULSE 80; RESP 16; TEMP 97.7; O2SAT 97
--- NOTE | 2016-10-21 19:33 | NUR ---
Summary Pt. pleasant. She is a mod assist transfer x1 with walker and gait belt. Pt. does ambulate to meals. She is total assist with brooks care and clothing management. She is in a lot of pain with activity. Pt. does rated right pelvic pain a 6/10. Pain scale has been explained to pt. but it is unsure how well pt. understands it due to forgetfulness/confusion. PRN Tramadol and Tylenol given this shift. Please see eMAR. Re-positioning and ice pack applied for comfort. Bilateral pedal pulses palpable. Mepilex dressing to coccyx noted to be C/D/I. Pt. is currently resting in bed. Alarm is on. Bilateral calf SCD's are in place. Report has been past on to shift nurse manager.
[2016-10-21] MEDS: LIDOCAINE PATCH REMOVAL TOP SCH (21:00)
[2016-10-22 04:58] LABS: BASOPHILS % (AUTO) 0.6 % (0-2); EOSINOPHILS # (AUTO) 0.3 T/MM3 (0-0.5); EOSINOPHILS % (AUTO) 6.9 % (0-4); HCT - HEMATOCRIT 26.1 % (36-46); LYMPHOCYTES # (AUTO) 0.8 T/MM3 (1-4.8); LYMPHOCYTES % (AUTO) 16.7 % (23-45); MEAN CORPUSCULAR HGB 31.4 UUG (26-34); MEAN CORPUSCULAR HGB CONC(MCHC 30.7 GM/DL (31-37); MEAN CORPUSCULAR VOLUME 102.4 UM3 (80-100); MEAN PLATELET VOLUME 10.5 UM3 (9.4-12.4); MONOCYTES # (AUTO) 0.5 T/MM3 (0-0.8); MONOCYTES % (AUTO) 10.8 % (0-9.0); NEUTROPHILS #(AUTO)-ABSOLUTE 3.1 T/MM3 (1.8-7.7); RED BLOOD COUNT 2.55 M/MM3 (4.00-5.20); WBC - WHITE BLOOD COUNT 4.8 T/MM3 (4.5-11.0)
[2016-10-22 05:28] LABS: ANION GAP 10 MEQ/L (5-15); BUN/CREATININE RATIO 27 RATIO (6-26); CALCIUM 8.4 MG/DL (8.4-10.2); CHLORIDE 103 MEQ/L (98-107); CO2 - CARBON DIOXIDE 28 MEQ/L (22-30); CREATININE 2.1 MG/DL (0.7-1.2); GLOMERULAR FILTRATION RATE 22; GLUCOSE 58 MG/DL (65-110); POTASSIUM 4.9 MEQ/L (3.6-5); SODIUM 141 MEQ/L (134-144)
--- NOTE | 2016-10-22 07:29 | NUR ---
Summary Pt incont of bowel with bowel accident requiring changing of pant, brief, bed pad, and cleaning of bathroom floor. Pt is guarding against pain in R pelvis and requires moderate assistance getting up from bed. Pt denied Ultram PRN. Pt stated she slept well last night.
[2016-10-22] MEDS ORDERED: ASPART SQ SCH ×3 (07:45→17:15)
[2016-10-22] MEDS ORDERED: INSULIN NPH SQ SCH ×3 (07:45→17:15)
[2016-10-22 07:56] VITALS: BP 184/89; PULSE 97; RESP 16; TEMP 98.2; O2SAT 95
[2016-10-22 07:57] VITALS: BP 183/79; PULSE 96; O2SAT 94
[2016-10-22 08:15] VITALS: PULSE 97; RESP 16
[2016-10-22] MEDS: POLYETHYL.GLYCOL 3350 PACKET 17gm PO SCH (08:21)
[2016-10-22 08:22] VITALS: BP 186/90; PULSE 105
[2016-10-22] MEDS: DOCUSATE SODIUM 100 MG CAPSULE PO SCH (08:23)
[2016-10-22] MEDS: SENNA + DOCUSATE TAB PO SCH (08:23)
[2016-10-22] MEDS: AMLODIPINE 5 MG TABLET PO SCH (08:24)
[2016-10-22] MEDS: LIDOCAINE 5% PATCH TOP SCH (08:24)
[2016-10-22] MEDS: VIT C PO SCH (08:26)
[2016-10-22] MEDS: [UNRECOGNIZED DRUG - OTHER] PO SCH (08:26)
[2016-10-22 09:54] VITALS: BP 146/67; PULSE 92; O2SAT 98
--- NOTE | 2016-10-22 10:02 | NUR ---
ERICA CALLED PARMINDER AT [facility]; SHE IS STILL ABLE FOR TRANSFER TODAY AT 1 PM. CALL REPORT TO LAUREL PASS #[phone]. THIS WORKER EXPLAINED THAT THIS WORKER IS AWAITING FINAL CLEARANCE FROM DOCTOR.
--- NOTE | 2016-10-22 10:59 | PDOCECFAO ---
Admission Orders Admission Orders Admit to: [facility] Allergies: Coded Allergies: Penicillins (Verified Allergy, Unknown, 07/16/11) promethazine (Verified Adverse Reaction, Severe, MENTAL STATUS CHANGE, 15/06) Admitting Diagnosis Pelvic Fx Admitting Physician Francesco Zelaya MD Code Status Do Not Resuscitate Anticipated LOS: 30 days or less Rehab Potential: Fair Rehab Prognosis: Fair Evaluations/Treat: PT, OT [facility] Certification I certify that SNF services are required to be given on an Inpatient basis because of the patients need for group home care on a continuing basis for the condition(s) for which he/she received inpatient hospital services prior to his/her transfer to the SNF. SNF inpatient care is necessary for the following reasons Other (PT,OT) CHIDI DUVALL V SOLE TACKER October 22, 2016 10:59
[2016-10-22] MEDS ORDERED: HYDR-3989 PO (11:00)
[2016-10-22] MEDS ORDERED: LIDO700A3 TOP (11:00)
[2016-10-22] MEDS ORDERED: INSU10VI3 SQ ×2 (11:00)
[2016-10-22] MEDS ORDERED: DOCU-168 PO (11:00)
--- NOTE | 2016-10-22 11:56 | NUR ---
CM SPOKE WITH PT, RE: TRANSFERRING TO SNU AT [facility]; SHE SAID SHE IS AGREEABLE WITH THIS AND HER DAUGHTER LOOKED AT SEVERAL PLACES. REVIEWED IM LETTER WITH PT; HOWEVER, DID NOT HAVE HER SIGN DUE TO FORGETFULNESS. LEFT MESSAGE WITH DAUGHTER, HENRI, TO SIGN; AND ALSO WITH AN UPDATE OF A 1 PM TRANSFER TO PM. Addendum: 10/22/16 at 1157 by AJSON ISABEL Amended: Links added.
--- NOTE | 2016-10-22 13:00 | NUR ---
Shift Summary Pt is in the recliner at this time. She ambulates well with moderate assist of 1, FWW, and gait belt. She reports minimal discomfort but does not want anything for it. Ate well for meals this shift, ambulates to the dinning room, did not need assist with her tray. She worked well with therapy. Has been continent and incontinent this shift, needed total assist with incontinent management as well as max to total assist with hygiene and clothing. She needed moderate assist getting in and out of bed this shift. When in bed or the chair the alarm is in use and call light is within reach.
--- NOTE | 2016-10-22 13:14 | NUR ---
Report Called Thania at [facility] in [place] to give report on this patient. All information needed was provided and questions answered.
--- NOTE | 2016-10-22 13:25 | NUR ---
Discharge Pt was dismissed to [facility] in [place] with the van cdl driver to the ER entrance escorted by staff. All pts belongings were packed for the pt to take with her including the medications in the cabinet and the boost in the fridge. Packet was given to the van cdl driver, bracelets were removed.
--- NOTE | 2016-10-22 14:08 | NUR ---
CM PRIOR TO DC: CALL FROM DAUGHTER HENRI. REVIEWED IM LETTER AND SHE WAS AGREEABLE TO THIS. SHE WAS ALSO AGREEABLE TO PT TRANSFERRING TODAY, TO [facility] IN [place]. SHE SAID SHE WILL MEET THE PT THERE. THIS WORKER RELAYED THIS TO PT. TIME OUT COMPLETED WITH RN. CALLED PARMINDER WITH [facility]; SHE SAID SHE RECEIVED THE ORDERS AND HAS EVERYTHING SHE NEEDS.
--- NOTE | 2016-10-22 14:39 | STDAILYN ---
ST Daily Note Date/Time DATE: 10/22/16 TIME: 14:30 Subjective Comment Pt seen by ST this morning. She was alert and pleasant to work with. She stated that she was not in much pain yet rated her hip pain at a '7'. Pt was positioned upright in her chair for therapy. Orientations: Person, Alert, Cooperative Chief Complaint: Pelvic fx, memory Pain: Yes (hip) Was Patient Education Provided: Yes Person(s) Educated: Patient Education Subject: Speech Strategies (memory strategies) Instruction Understanding Demo: Pt. demos understanding, Pt. verbalizes understand *Speech Therapy Impressions SHORT TERM GOALS: Pt will repeat a 5 word list of functional words/phrases related to activities of daily living immediately after presentation with minimal cues and 80% accuracy. Pt repeated a 4 word phrase with 90% accuracy; 5 words with 80% accuracy, requiring minimal contextual cues. Pt will identify items within a category and/or state the category's class during a structured task requiring minimal cues with 85% accuracy. Patient was instructed to name as many items within a given category. Memory strategies were re-explained to the patient. Fruit:9 Veggies: 8 Colors: 7 Animals: Pets: 3; Farm:6; Zoo:8 Pt demonstrated improved organization of thoughts when naming and independently named items in subcategories. Pt will recall ADLS with minimal cues with 80% accuracy. Patient recalled morning activities with 3/3 accuracy. She was able to recall her breakfast meal without cues. Pt will use external memory aids and compensatory strategies to recall routine, personal information and recent events to improvement orientation to time/place with 85% accuracy given minimal cues. Not targeted during therapy Pt will demonstrate recall of functional information following a short-term delay with minimal cues in order to increase functional integration into environment with 80% accuracy. Pt demonstrated recall of 2 detail information with 8/10 accuracy and minimal cues. She occasionally perseverates on off topic items but is easily re-directed. ST Treatment Plan: Memory Retraining ST Treatment Plan Frequency: five times per week Treatment Plan Duration: one week Plan of Care Comment: Pt is planning to discharge on this date. Start Treatment 1: 09:10 Stop Treatment 1: 09:40 Treatment Duration : ST Treatment Charge: Speech Treatment Minutes of Individual Therapy: 30 ST FIM Comprehension Ability: 3 Moderate Assistance Social Interaction: 5 Supervision/Setup Problem Solvin Minimal Assistance Memory: 3 Moderate Assistance Expression Ability: 5 Supervision/Setup GABRIEL LAUGHLIN MA October 22, 2016 14:32
--- NOTE | 2016-10-22 14:42 | STDAILYN ---
Discharge Note Date/Time DATE: 10/22/16 TIME: 14:40 Discharge From: Inpatient ST Reason for Discharge: Transf. to Diff. Facility Other Reasons for Discharge: Pt transferring to a skilled facility Discharge Summary: Pt made improvement with speech therapy goals. She continues to require moderate cues and strategies for memory and word recall. Recommended Follow-up: Cont. Therapy in [place] GABRIEL Mar MA October 22, 2016 14:42
--- NOTE | 2016-10-29 13:57 | DSPDOC ---
General Date Date DATE: 10/29/16 TIME: 13:51 Attending Physician Francesco Zelaya MD Admitting Physician Francesco Zelaya MD Consulting Physician Maryann Zapata MD Admitting Diagnosis pelvic fracture Discharge Diagnosis iron defeciency anemia; anemia of chronic disease DM2 HTN osteoporosis CKD stage IV hyponatremia History of Present Illness 81 yo female with right pelvic fracture and weakness, being admitted to IRU. She has a hx of chronic anemia, CKD(IV), DM type II and HTN. Since falling and fracturing her pelvis, she has had difficulty managing pain and losing strength. At this time, she is too weak to manage her own ADL's. She had stopped Insulin dur eto renal failure. Hospital Course 10/14: [place]. 1. Pelvic fracture secondary to falls * Continue to encourage participation in therapies to improve strength and functional abilities. * Provide a safe and supportive environment. 2. Macrocytic anemia * Hemoglobin variable throughout admission, ranging from 6's to 8's day to day. Patient has history of iron deficiency anemia as well as anemia of chronic disease. * Family has refused blood transfusion and requested that patient be able to take her home iron supplementation as they feel it is better absorbed, which is fine. * Continue to monitor hemoglobin and blood counts closely. 3.. Hypertension * Continue Norvasc and monitor blood pressure closely. Blood pressure also variable. 4. Diabetes * Blood sugars variable, ranging from lows in 40s-50s to highs >300. Continue to monitor closely. Consider consulting Dr. Estevez for expertise. 5. Hyponatremia- resolved. * Continue to monitor periodically. Recheck in AM with BMP. 6. Osteoporosis 7. UTI, new diagnosis * UA showed 5-10 WBC with 4+ bacteria. Ceftin initiated and renally dosed. Monitor closely. 8. CKD, stage 4 * Continue to monitor renal function closely - SCr 2.0 (baseline). Recommend follow up with child support specialist as outpatient to evaluate for upcoming need of fistula. * * 10/16/16 Will need to continue to monitor Hgb closely. Today Hgb is 7.6. Will recheck tomorrow. Will add Lidoderm patch to right hip along with Tylenol for better pain control. Urine culture positive for E-Coli which is pansensitive. Continue with Ceftin for 7 days for coverage, end date 10/21/16. Monitor blood sugars NovoLog 70/38 units twice a day as well as sliding scale. Senna plus and Colace twice a day for ongoing bowel motivation Continue to encourage work with PT and OT for ongoing strengthening and pain control. 10/17/16 30 minutes of time was spent discussing with patient, daughter, photograph inspector and Dr. Zelaya regarding anemia. Reviewed with patient and daughter regarding risk of anemia and fracture this will have on her strength and rehabilitation. Both daughter and patient agreed to a blood transfusion of 1 unit today. Contacted blood bank in the lab to confirm this. Placed Type and screen,1 unit of packed red blood cells, leuko-reduced is ordered to administer today. Will need to continue to monitor Hgb closely. Will add Lidoderm patch to right hip along with Tylenol for better pain control. Continue with Ceftin for 7 days for coverage, end date 10/21/16. Monitor blood sugars NovoLog 70/38 units twice a day as well as sliding scale. Continue to encourage work with PT and OT for ongoing strengthening and pain control. 10/22/16 Pt admitted to IRU with debility and weakness after right side closed superior and inferior pubic ramus fx. She was also anemic during the admission and ultimately agreed to one unit PRBC transfusion, which was given. She noted immediate improvement in her energy level. PT and OT worked closely with her and she showed appropriate FIM score improvement. D/C to SNU. Francesco Zelaya MD Problems: (1) Hyperkalemia Status: Acute (2) Macrocytic anemia Status: Chronic Assessment & Plan: History of anemia of chronic disease and iron deficiency anemia. Baseline hemoglobin has been 9-10. (3) Falls Status: Acute (4) Pubic ramus fracture Status: Acute (5) DM2 (diabetes mellitus, type 2) Status: Chronic (6) HTN (hypertension) Status: Chronic (7) Hyponatremia Status: Chronic (8) Osteoporosis Status: Chronic Code Status Do Not Resuscitate Home Meds Active Scripts Lidocaine (Lidoderm) 1 Each Adh..patch, 1 REMOVAL TOP 2100 for 30 Days Prov:CHIDI DUVALL APRN 10/22/16 Insuln Asp Prt/Insulin Aspart (Novolog Mix 70-30 Vial) 100 Unit/Ml Inj, 8 UNIT SQ 0745 for 30 Days Prov:CHIDI DUVALL APRN 10/22/16 Insuln Asp Prt/Insulin Aspart (Novolog Mix 70-30 Vial) 100 Unit/Ml Inj, 6 UNIT SQ 1715 for 30 Days Prov:CHIDI DUVALL APRN 10/22/16 Docusate Sodium (Colace) 100 Mg Capsule, 100 MG PO BID, #30 CAP Prov:CHIDI DUVALL V INTERCEPTOR OPERATOR 10/22/16 Hydrocodone/Apap ([place] 5-325 Tablet) 5-325 Tablet, 1 TAB PO PRN Y for PAIN, #30 Prov:CHIDI DUVALL APRN 10/22/16 Sennosides/Docusate Sodium (Senna Plus Tablet) 1 Tab Tablet, 2 TAB PO BID for constipation, #60 TAB Prov:MARYANN ZAPATA MD 10/11/16 Acetaminophen (Tylenol) 325 Mg Tablet, 325-650 MG PO Q5H Y for DISCOMFORT for 30 Days, TAB Prov:MARYANN ZAPATA MD 10/11/16 Reported Medications [Liquid Iron + Vit C] No Conflict Check, 1 TSP PO DAILY 10/09/16 Amlodipine Besylate (Amlodipine Besylate) 5 Mg Tablet, 5 MG PO DAILY, #30 10/09/16 Discontinued Scripts Insuln Asp Prt/Insulin Aspart (Novolog Mix 70-30 Vial) 100 Unit/Ml Inj, 8 UNIT SQ 0745,1715 for DM for 30 Days Prov:MARYANN ZAPATA MD 10/11/16 Face to Face Encounter I met with patient on the day of dismissal and discussed follow up appointments , medications, and safety plan. Discharge Disposition FRANCESCO HICKS MD October 29, 2016 13:56
== END 2016-10-22 13:25 | DRG 92 ==
PROVIDERS: ADMIT Family Medicine; ATTEND Family Medicine
PROC: F07Z9FZ Gait Training/Functional Ambulation Treatment using Assistive, Adaptive, Supportive or Protective Equipment (ICD-10-PCS; principal; 2016-10-12)
PROC: F07M6ZZ Therapeutic Exercise Treatment of Musculoskeletal System - Whole Body (ICD-10-PCS; 2016-10-12)
PROC: F08Z4ZZ Home Management Treatment (ICD-10-PCS; 2016-10-12)
PROC: 30233N1 Transfusion of Nonautologous Red Blood Cells into Peripheral Vein, Percutaneous Approach (ICD-10-PCS; 2016-10-17)
DX: G72.89 Other specified myopathies (principal); E87.1 Hypo-osmolality and hyponatremia; N18.4 Chronic kidney disease, stage 4 (severe); S32.591D Other specified fracture of right pubis, subsequent encounter for fracture with routine healing; D63.8 Anemia in other chronic diseases classified elsewhere; I12.9 Hypertensive chronic kidney disease with stage 1 through stage 4 chronic kidney disease, or unspecified chronic kidney disease; E11.22 Type 2 diabetes mellitus with diabetic chronic kidney disease; Z66 Do not resuscitate; M81.0 Age-related osteoporosis without current pathological fracture; Z79.4 Long term (current) use of insulin; W19.XXXD Unspecified fall, subsequent encounter
CPT/HCPCS: 36415; 36416; 80048; 81001; 82948; 83735; 84100; 85014; 85018; 85025; 85045; 86850; 86900; 86901; 86922; 87086; 87088; 87186